=== PATIENT | male | born 1965 ===

== ENCOUNTER 2016-06-12 03:43 | Inpatient (IN) | payer OTHER ==
[2016-06-12 04:34] LABS: BASO # 0.1 K/uL (0.0-0.2); BASO % 0.5 % (0.0-2.0); EOS # 0.1 K/uL (0.0-0.7); EOS % 0.8 % (0.0-4.0); HEMATOCRIT 39.6 % (35.0-51.0); LYMPH # 1.1 K/uL (1.0-4.3); LYMPH % 8.7 % (20.0-40.0); MEAN CELL VOLUME 97.6 fL (80.0-94.0); MEAN CORPUSCULAR HEMOGLOBIN 29.9 pg (27.0-31.0); MEAN CORPUSCULAR HGB CONC 30.7 g/dL (33.0-37.0); MEAN PLATELET VOLUME 9.2 fL (7.2-11.7); MONO # 0.7 K/uL (0.0-0.8); MONO % 5.2 % (0.0-10.0); PLATELET COUNT 143 K/uL (130-400); RED CELL DISTRIBUTION WIDTH 13.4 % (11.5-14.5); WHITE BLOOD COUNT 13.1 K/uL (4.8-10.8)
[2016-06-12] MEDS ORDERED: Sodium Chloride 0.9% 1,000 ML IV STA ×3 (04:37→04:42)
[2016-06-12 04:39] LABS: VENOUS BLOOD GAS BASE EXCESS -19.4 mmol/L (0.0-2.0); VENOUS BLOOD GAS PCO2 26 mmHg (40-60); VENOUS BLOOD PH 7.12 (7.32-7.43)
[2016-06-12 04:44] LABS: ALB/GLOB RATIO 1.5 (1.0-2.1); ALKALINE PHOSPHATASE 119 U/L (38-126); ALT/SGPT 35 U/L (21-72); AST/SGOT 32 U/L (17-59); BILIRUBIN,TOTAL 0.9 mg/dL (0.2-1.3); BLOOD UREA NITROGEN 32 mg/dL (9-20); GFR AFRICAN-AMERICAN > 60; TOTAL PROTEIN 7.2 g/dL (6.3-8.3)
[2016-06-12 04:45] LABS: CALCIUM 9.2 mg/dl (8.6-10.4)
--- NOTE | 2016-06-12 04:47 | C.PDOC ---
History Of Present Illness 50 y/o M c PMHx DM on insulin pump, CVA with residual L sided weakness p/w chest pain x 1 hour. Pain is midchest associated with R arm tingling and numbness and nausea so he called 911 and arrived by EMS. He notes that he is typically on an insulin pump but his insulin went bad in the car so he has not been getting insulin and he can feel that he is hyperglycemic because "I know my body." He denies fever, chills, vomiting, diarrhea, dysuria. Time Seen by Provider: 06/12/16 04:05 Chief Complaint (Nursing): High Blood Sugar Past Medical History Vital Signs: Last Vital Signs Temp 98.2 F 06/12/16 03:56 Pulse 120 H 06/12/16 03:56 Resp 20 06/12/16 03:56 BP 125/67 06/12/16 03:56 Pulse Ox 97 06/12/16 05:06 - Medical History PMH: HTN Family History: States: No Known Family Hx - Social History Hx Alcohol Use: Yes Hx Substance Use: No - Immunization History Hx Tetanus Toxoid Vaccination: No Hx Influenza Vaccination: No Hx Pneumococcal Vaccination: No Review Of Systems Except As Marked, All Systems Reviewed And Found Negative. Constitutional: Negative for: Fever Cardiovascular: Positive for: Chest Pain Physical Exam - Physical Exam Additional Physical Exam Comments: Constitutional: Drowsy. Head: Normocephalic. Atraumatic. Eyes: PERRL. ENT: Dry mucous membranes. Neck: Supple. Cardiovascular: Tachycardic. Chest: No tenderness. Respiratory: Clear to auscultation bilaterally. GI: Soft. Nontender. Nondistended. Back: No CVA tenderness. Musculoskeletal: No tenderness or swelling of extremities. Skin: No rash. Neurologic: L sided weakness (baseline) ED Course And Treatment - Laboratory Results Result Diagrams: 06/12/16 04:25 06/12/16 04:25 O2 Sat by Pulse Oximetry: 97 Critical Care Time - Critical Care Note Total Time (in mins): 60 Comments: Required my immediate attention, frequent reassessments, ICU consult Documented critical care: time excludes all time spent performing seperately billable procedures. Medical Decision Making Medical Decision Making: EKG Sinus tachycardia 115 bpm, no ST elevations, peaked T waves. Patient with tachycardia, leukocytosis and lactate 2.8 so CODE SEPSIS activated. 30cc/kilo bolus administered. Differential includes ACS, DKA, sepsis. Patient with marked hyperglycemia, acidosis, ketones, hyperkalemia. Insulin bolus and drip, kayexelate, bicarb, calcium administered. Dr. Steiner accepts patient to ICU. Disposition Discussed With : Sasha Steiner-Fitta - Disposition Disposition: HOSPITALIZED Disposition Time: 05:23 Condition: CRITICAL - Clinical Impression Clinical Impression: Chest pain, Diabetic ketoacidosis
[2016-06-12 04:49] LABS: RBC URINE < 1 /hpf (0-3); URINE BILIRUBIN NEGATIVE (NEGATIVE); URINE BLOOD NEGATIVE (NEGATIVE); URINE COLOR Straw (YELLOW); URINE GLUCOSE (UA) 3+ mg/dL (Normal); URINE KETONE 2+ mg/dL (NEGATIVE); URINE LEUKOCYTE ESTERASE NEG Leu/uL (Negative); URINE PROTEIN NEGATIVE (NEGATIVE); URINE UROBILINOGEN NORMAL mg/dL (0.2-1.0); WBC URINE < 1 /hpf (0-5)
[2016-06-12 04:58] LABS: GLUCOSE,RANDOM 900 mg/dL (75-110)
[2016-06-12 04:59] LABS: CARBON DIOXIDE < 5 mmol/L (22-30); CHLORIDE 91 mmol/L (98-107); POTASSIUM 6.5 mmol/L (3.6-5.2); SODIUM 128 mmol/L (132-148)
[2016-06-12 04:59] LABS: ALCOHOL SERUM < 10 mg/dl (0-10)
[2016-06-12] MEDS ORDERED: Sodium Bicarbonate (8.4%) 50 Meq Syringe IVP ONE (04:59)
[2016-06-12] MEDS ORDERED: (Novolin R) Insulin Human Regular 100 units/ml vial IV STA (04:59)
[2016-06-12] MEDS ORDERED: Calcium Gluconate 4.65 mEq/10 ml Inj IVP ONE ×2 (05:00→06:35)
[2016-06-12] MEDS ORDERED: (Novolin R) Insulin Human Regular 100 units/ml vial ONE (05:04)
[2016-06-12] MEDS ORDERED: Sodium Bicarbonate (8.4%) 50 Meq Syringe ONE (05:04)
[2016-06-12] MEDS ORDERED: Sod Polystyrene Sulf 15 gm/60 ml Oral Susp PO ONE (05:14)
[2016-06-12] MEDS ORDERED: Insulin Human Regular 100 UNIT in Sodium Chloride 0.9% 99 ML IV SCH ×3 (05:15→12:21)
[2016-06-12] MEDS ORDERED: Sod Polystyrene Sulf 15 gm/60 ml Oral Susp ONE (05:23)
[2016-06-12 05:35] LABS: NEUTROPHIL 81 % (50-75); TOTAL CELLS COUNTED 100
[2016-06-12] MEDS ORDERED: Sodium Chloride 0.9% 1,000 ML IV SCH (06:45)
--- NOTE | 2016-06-12 07:37 | CP.PCM.CON ---
History of Present Illness - History of Present Illness History of Present Illness: Patient seen and examined in am on arrival to ER. History is poor since the patient is tired, but when woken up aaox3 and answers appropriately to questions. He came with complaints of sob. He states his insulin went bad and has not been using it, he was in retirement 2 days ago. Labs showed DKA 10 ros asked and negative, when I asked no mor cp NKDA social: no smoking, alcohol or drugs PMH: HTN DM CVA with left residual weakness, more arm than leg FH: Not relevant for the case pe: bp: 123/65 mmhg, hr 120 bpm, rr 22 bpm, O2 98% on RA, T 97.9 middle age male looks tired aaox3 s1, s2 sinus tachycardia, no murmurs lungs good bilateral air of entry abdomen global soft, non tender legs no edema left leg relatively weaker than the right, but pretty strong, left arm strength 1/5 a/p: DKA: insulin drip at 6, no titration, 2 L bolus given in ER, give 2 extra litters bolus, NaCl at 150, give initial dose of levemir now, than hs, poc q1h for now, adjust drips when BS reach 250 residual stroke at baseline as per pt, able to walk with no cane, slurred speech and a little hard to understand at times, but patient claims this is the way he speaks elevated wbc could be reactive, no fever tachycardia might be due to dehydration, ordered 2 L of fluid bolus, oral mucosa looks moderately dry No medications for bp for now Past Patient History - Past Social History Smoking Status: Never Smoked - CARDIAC Hx Hypertension: Yes - PSYCHIATRIC Hx Substance Use: No Meds Allergies/Adverse Reactions: Allergies Allergy/AdvReac Type Severity Reaction Status Date / Time No Known Allergies Allergy Unverified 06/12/16 04:05 - Medications Medications: Current Medications Sodium Chloride (Sodium Chloride 0.9%) 1,000 mls @ 150 mls/hr IV .[id number] [facility] Last Admin: 06/12/16 06:48 Dose: 150 mls/hr Insulin Human Regular 100 unit (/ Sodium Chloride) 100 mls @ 6 mls/hr IV .[id number] [facility] Last Admin: 06/12/16 06:44 Dose: 6 mls/hr Results - Vital Signs Recent Vital Signs: Last Vital Signs Temp 97.9 F 06/12/16 06:33 Pulse 120 H 06/12/16 06:33 Resp 22 06/12/16 06:33 BP 123/65 06/12/16 06:33 Pulse Ox 98 06/12/16 06:33 - Labs Result Diagrams: 06/12/16 04:25 06/12/16 04:25 Labs: Laboratory Results - last 24 hr 06/12/16 06:22 POC Glucose (mg/dL) > 500 H*
[2016-06-12] MEDS ORDERED: Sodium Chloride 0.9% 1,000 ML IV ONE ×2 (07:40→07:41)
[2016-06-12] MEDS ORDERED: Insulin Detemir 100 units/ml Vial (Levemir) SC ONE (07:45)
[2016-06-12 09:02] LABS: VENOUS BLOOD GAS PCO2 28 mmHg (40-60); VENOUS BLOOD PH 7.28 (7.32-7.43)
[2016-06-12 09:14] LABS: CHLORIDE 102 mmol/L (98-107); POTASSIUM 4.4 mmol/L (3.6-5.2); SODIUM 137 mmol/L (132-148)
[2016-06-12 09:17] LABS: GFR AFRICAN-AMERICAN > 60
[2016-06-12 09:18] LABS: BLOOD UREA NITROGEN 29 mg/dL (9-20); CARBON DIOXIDE 12 mmol/L (22-30); GLUCOSE,RANDOM 392 mg/dL (75-110); PHOSPHOROUS 4.4 mg/dL (2.5-4.5)
[2016-06-12 09:19] LABS: CALCIUM 8.6 mg/dl (8.6-10.4); MAGNESIUM 2.3 mg/dL (1.6-2.3)
--- NOTE | 2016-06-12 09:55 | RAD ---
HISTORY: tachycardia COMPARISON: None available. TECHNIQUE: Chest, one view. FINDINGS: LUNGS: No focal consolidation. Please note that chest x-ray has limited sensitivity for the detection of pulmonary masses. PLEURA: No significant pleural effusion identified. No definite pneumothorax . CARDIOVASCULAR: Heart size appears top normal. OSSEOUS STRUCTURES: Degenerative changes. VISUALIZED UPPER ABDOMEN: Unremarkable. OTHER FINDINGS: None. IMPRESSION: No focal consolidation, significant pleural effusion, or definite pneumothorax identified.
--- NOTE | 2016-06-12 12:28 | CP.PCM.HP ---
<Elzbieta Crowe - Last Filed: 06/12/16 13:15> History of Present Illness - History of Present Illness History of Present Illness: Internal medicine H & P for Hospitalist service- Elzbieta Crowe, PGY-1 Pt S & E at bedside. Pt prefers being called "Jimmy" 50 M w/PMH sig for CAD s/p [place] (04/2016) w/cardiac cath, type 1 DM on insulin pump , HTN, s/p hemorrhagic CVA (2013) admitted to ICU for DKA. Pt reports that he has had significant personal issues resulting in his living out of his car. Pt was storing a 3 mo supply of insulin in his car, unrefrigerated. Pt noted that insulin did not look right 3 days ago, continued to use it while trying to modify eating habits so that blood sugars would be controlled. Noted that he started to feel fatigue/lethargy, weakness, experience polyuria, myalgias, headache, blurry vision and some nausea this morning. Admits to dizziness upon standing, sore throat, occasional/intermittent/chronic cough with yellow mucus production, numbness and tingling of right hand (specifically 1st and 2nd digits ), wt loss, Denies emesis, abdominal pain, palpitations, chest tightness, constipation, diarrhea. PMH: CAD s/p [place] (04/2016) w/cardiac cath, type 1 DM on insulin pump since age 21 , HTN, s/p hemorrhagic CVA (2013), fall w/head injury while in [facility], chronic migraines/headache, Left eye vision changes PSH: Cath (04/2016 at [place]) w/1 vessel disease, Appendectomy All: NKDA SH: Social ETOH use #1-2 drinks/3 mos, denies tobacco/illicit drug use; pt recently jailed x 22 days from 04/16-05/07/2016 PMD: Chiara Marrufo Present on Admission - Present on Admission Any Indicators Present on Admission: Yes History of DVT/PE: No History of Uncontrolled Diabetes: Yes Urinary Catheter: No Decubitus Ulcer Present: No Review of Systems - Review of Systems All systems: reviewed and no additional remarkable complaints except - Constitutional Constitutional: Fatigue, Headache, Lethargy, Weight Loss, Weakness. absent: Chills, Fever - EENT Eyes: Blurred Vision, Change in Vision Nose/Mouth/Throat: Sore Throat - Cardiovascular Cardiovascular: Chest Pain. absent: Palpitations - Respiratory Respiratory: Cough (recurrent, intermittent) - Gastrointestinal Gastrointestinal: Nausea. absent: Abdominal Pain, Constipation, Diarrhea, Vomiting - Genitourinary Genitourinary: absent: Dysuria - Musculoskeletal Musculoskeletal: Myalgias - Integumentary Integumentary: absent: Rash - Neurological Neurological: Abnormal Speech (slurred since CVA), Focal Weakness (on left side) , Headaches, Tingling (right hand 1st and 2nd digit), Weakness - Endocrine Endocrine: Fatigue, Polyuria Past Patient History - Past Medical History & Family History Past Medical History?: Yes - Past Social History Smoking Status: Never Smoked - CARDIAC Hx Hypertension: Yes - NEUROLOGICAL HX Cerebrovascular Accident: Yes - ENDOCRINE/METABOLIC Hx Diabetes Mellitus Type 1: Yes - MUSCULOSKELETAL/RHEUMATOLOGICAL Hx Falls: No - PSYCHIATRIC Hx Substance Use: No - ANESTHESIA Hx Anesthesia: No Hx Anesthesia Reactions: No Hx Malignant Hyperthermia: No Has any member of the family had a problem w/ anesthesia?: No Meds Allergies/Adverse Reactions: Allergies Allergy/AdvReac Type Severity Reaction Status Date / Time No Known Allergies Allergy Unverified 06/12/16 04:05 Physical Exam - Constitutional Appears: Non-toxic, No Acute Distress - Head Exam Head Exam: ATRAUMATIC, NORMAL INSPECTION, NORMOCEPHALIC - Eye Exam Eye Exam: EOMI, Normal appearance, PERRL Pupil Exam: NORMAL ACCOMODATION, PERRL - ENT Exam ENT Exam: Mucous Membranes Dry, Normal Exam. absent: Mucous Membranes Moist - Neck Exam Neck exam: Positive for: Full Rom, Normal Inspection. Negative for: Lymphadenopathy, Tenderness - Respiratory Exam Respiratory Exam: Clear to Auscultation Bilateral, NORMAL BREATHING PATTERN. absent: Chest Wall Tenderness, Decreased Breath Sounds, Rales, Rhonchi, Wheezes , Respiratory Distress, Stridor - Cardiovascular Exam Cardiovascular Exam: Tachycardia, +S1, +S2 - GI/Abdominal Exam GI & Abdominal Exam: Normal Bowel Sounds, Soft. absent: Distended, Firm, Guarding, Hernia, Rebound, Rigid, Tenderness - Extremities Exam Extremities exam: Positive for: normal inspection. Negative for: pedal edema, tenderness - Neurological Exam Neurological exam: CN II-XII Intact, Motor Sensory Deficit (left sided upper extremity paralysis, hand contracted), Oriented x3 Additional comments: lethargic during interview, obvious left sided lip and facial droop, slurred speech - Psychiatric Exam Psychiatric exam: Normal Affect Additional comments: Emotionally labile during interview - Skin Skin Exam: Dry, Intact, Normal Color, Warm Results - Vital Signs Recent Vital Signs: Last Vital Signs Temp 97.9 F 06/12/16 06:33 Pulse 112 H 06/12/16 07:00 Resp 16 06/12/16 07:00 BP 117/64 06/12/16 07:00 Pulse Ox 97 06/12/16 07:00 - Labs Result Diagrams: 06/12/16 04:25 06/12/16 09:02 Labs: Laboratory Results - last 24 hr 06/12/16 06/12/16 06/12/16 06:22 07:03 07:53 pO2 VBG pH VBG pCO2 VBG HCO3 VBG Total CO2 VBG O2 Sat (Calc) VBG Base Excess VBG Potassium Sodium Chloride Glucose Lactate Potassium Carbon Dioxide Anion Gap BUN Creatinine Est GFR ( Amer) Est GFR (Non-Af Amer) POC Glucose (mg/dL) > 500 H* > 500 H* > 500 H* Random Glucose Calcium Phosphorus Magnesium Total Creatine Kinase CK-MB (Mass) Troponin I, Quant Venous Blood Potassium 06/12/16 06/12/16 06/12/16 08:56 09:02 09:55 pO2 53 VBG pH 7.28 L VBG pCO2 28 L VBG HCO3 15.2 VBG Total CO2 14.1 L VBG O2 Sat (Calc) 93.5 H VBG Base Excess -12.0 L VBG Potassium 4.1 Sodium 138.0 137 Chloride 108.0 H 102 Glucose 381 H Lactate 3.0 H Potassium 4.4 Carbon Dioxide 12 L Anion Gap 27 H BUN 29 H Creatinine 1.4 Est GFR ( Amer) > 60 Est GFR (Non-Af Amer) 54 POC Glucose (mg/dL) 369 H 382 H Random Glucose 392 H Calcium 8.6 Phosphorus 4.4 Magnesium 2.3 Total Creatine Kinase CK-MB (Mass) Troponin I, Quant Venous Blood Potassium 4.1 06/12/16 06/12/16 06/12/16 11:02 11:32 12:08 pO2 VBG pH VBG pCO2 VBG HCO3 VBG Total CO2 VBG O2 Sat (Calc) VBG Base Excess VBG Potassium Sodium Chloride Glucose Lactate Potassium Carbon Dioxide Anion Gap BUN Creatinine Est GFR ( Amer) Est GFR (Non-Af Amer) POC Glucose (mg/dL) 359 H 218 H Random Glucose Calcium Phosphorus Magnesium Total Creatine Kinase 218 H CK-MB (Mass) 3.46 H Troponin I, Quant 0.0380 Venous Blood Potassium Assessment & Plan - Assessment and Plan (Free Text) Assessment: Metabolic acidosis due to DKA Accuchecks Q1H while on insulin drip NS@150cc Insulin drip until gap closes Monitor AG gap, K Mgmt as per ICU DM type 1 usually uses insulin pump FU lipid panel in AM FU A1c FU Microalbumin Dehydration due to DKA IVF resuscitation HTN BP WNL Monitor & adjust PRN CAD FU Echo Crestor 5mg PO HS FU lipid panel ASA to be considered after CT brain S/p fall in FU CT brain w/o cont If CT neg for bleed, will consider starting ASA Hx hemorrhagic CVA FU CT brain ASA consideration as above Crestor 5mg PO HS Will consider JOSE/ARB pending results PT/OT eval Chest pain FU Serial ROMIs- 11am, 5pm ABDI's neg x 2 FU EKG Leukocytosis WBC 13.1 Afebrile since admission FU Blood cxr FU urine cxr CXR neg for PNA GI/DVT ppx Protonix 40mg IVP daily SCDs Contraindications to VTE ppx - recent fall with head trauma & hx hemorrhagic CVA Dispo Admit to ICU Mgmt as per ICU VS as per protocol accuchecks Q1H DW attending - Date & Time Date: 06/12/16 Time: 09:00 Decision To Admit - Pt Status Changed To: Hospital Disposition Of: Inpatient - Admit Certification Admit to Inpatient:: After my assessment, the patient will require hospitalization for at least two midnights. This is because of the severity of symptoms shown, intensity of services needed, and/or the medical risk in this patient being treated as an outpatient. - InPatient: Physician Admission Certification:: needs ICU management for diabetic ketoacidosis, medical management for diabetes - . Bed Request Type: ICU Admitting Physician: Maranda Parker <Maranda Parker V - Last Filed: 06/13/16 10:17> Results - Vital Signs Recent Vital Signs: Last Vital Signs Temp 98 F 06/13/16 02:00 Pulse 80 06/13/16 02:00 Resp 16 06/13/16 02:00 BP 121/66 06/13/16 02:00 Pulse Ox 100 06/13/16 02:00 - Labs Result Diagrams: 06/13/16 06:27 06/13/16 06:27 Labs: Laboratory Results - last 24 hr 06/12/16 06/12/16 06/12/16 11:02 11:32 12:08 WBC RBC Hgb Hct MCV MCH MCHC RDW Plt Count MPV Neut % (Auto) Lymph % (Auto) Placer % (Auto) Eos % (Auto) Baso % (Auto) Neut # Lymph # Placer # Eos # Baso # Sodium Potassium Chloride Carbon Dioxide Anion Gap BUN Creatinine Est GFR ( Amer) Est GFR (Non-Af Amer) POC Glucose (mg/dL) 359 H 218 H Random Glucose Calcium Total Creatine Kinase 218 H CK-MB (Mass) 3.46 H Troponin I, Quant 0.0380 06/12/16 06/12/16 06/12/16 13:08 14:12 14:21 WBC RBC Hgb Hct MCV MCH MCHC RDW Plt Count MPV Neut % (Auto) Lymph % (Auto) Placer % (Auto) Eos % (Auto) Baso % (Auto) Neut # Lymph # Placer # Eos # Baso # Sodium 138 Potassium 3.9 Chloride 106 Carbon Dioxide 20 L Anion Gap 16 BUN 24 H Creatinine 1.1 Est GFR ( Amer) > 60 Est GFR (Non-Af Amer) > 60 POC Glucose (mg/dL) 193 H 140 H Random Glucose 121 H Calcium 7.9 L Total Creatine Kinase CK-MB (Mass) Troponin I, Quant 06/12/16 06/12/16 06/12/16 15:07 16:03 16:57 WBC RBC Hgb Hct MCV MCH MCHC RDW Plt Count MPV Neut % (Auto) Lymph % (Auto) Placer % (Auto) Eos % (Auto) Baso % (Auto) Neut # Lymph # Placer # Eos # Baso # Sodium Potassium Chloride Carbon Dioxide Anion Gap BUN Creatinine Est GFR ( Amer) Est GFR (Non-Af Amer) POC Glucose (mg/dL) 99 107 101 Random Glucose Calcium Total Creatine Kinase CK-MB (Mass) Troponin I, Quant 06/12/16 06/12/16 06/12/16 17:16 17:52 21:46 WBC RBC Hgb Hct MCV MCH MCHC RDW Plt Count MPV Neut % (Auto) Lymph % (Auto) Placer % (Auto) Eos % (Auto) Baso % (Auto) Neut # Lymph # Placer # Eos # Baso # Sodium 140 Potassium 3.8 Chloride 108 H Carbon Dioxide 21 L Anion Gap 15 BUN 23 H Creatinine 1.0 Est GFR ( Amer) > 60 Est GFR (Non-Af Amer) > 60 POC Glucose (mg/dL) 117 H 403 H* Random Glucose 92 Calcium 8.1 L Total Creatine Kinase 190 H CK-MB (Mass) 3.51 H Troponin I, Quant 0.1020 06/13/16 06/13/16 06/13/16 02:01 06:27 08:08 WBC 7.0 RBC 3.34 L Hgb 10.1 L D Hct 30.0 L MCV 89.8 D MCH 30.3 MCHC 33.8 RDW 13.1 Plt Count 214 MPV 7.8 Neut % (Auto) 65.6 Lymph % (Auto) 21.4 Placer % (Auto) 7.7 Eos % (Auto) 4.7 H Baso % (Auto) 0.6 Neut # 4.6 Lymph # 1.5 Placer # 0.5 Eos # 0.3 Baso # 0.0 Sodium 136 Potassium 3.6 Chloride 104 Carbon Dioxide 21 L Anion Gap 15 BUN 23 H Creatinine 1.0 Est GFR ( Amer) > 60 Est GFR (Non-Af Amer) > 60 POC Glucose (mg/dL) 449 H* 118 H Random Glucose 141 H Calcium 7.9 L Total Creatine Kinase CK-MB (Mass) Troponin I, Quant Attending/Attestation - Attestation I have personally seen and examined this patient.: Yes I have fully participated in the care of the patient.: Yes I have reviewed all pertinent clinical information: Yes Notes (Text): This is late computer entry for 06/12/16. Patient seen, examined, and case discussed with day-time resident. Patient is type 1 diabetic, since the age of 21, patient has been using insulin because he is unable to afford insulin. patient is homeless. Patient reports he uses an insulin pump at home. Patient reports day of admission prominent polyuria and associated body aches and pains, and very dehydrated. Patient has a number of co-morbidites: * Diabetes type 1, since age 21, uses insulin pump, has been using insulin * Hypertension * CAD, single vessel disease, non-critical vessel disease, no stent required patient, April 2016 [facility] * Hemorrhagic CVA in 2013 with left side residual weakness * Nursing Home from 04/06/16-05/07/16 where he reports he fell but reports he was not hospitalized/evaluated * Homeless Discussed admitting orders with the day-time resident. Management of DKA per ICU. Assessment/Plan 1) Metabolic acidosis due to DKA * Accuchecks Q1H while on insulin drip * NS@150cc/hr * Insulin drip * Monitor AG gap, K * Mgmt as per ICU 2) DM type 1 * F/U lipid panel in AM * F/U A1c * F/U urine Microalbumin 3) Dehydration * secondary to DKA 4) Hypertension * monitor vital signs 5) CAD * F/U Echo * Crestor 5mg PO HS * F/U lipid panel * ASA to be considered after CT Head given recent fall and left side weakness, in light of CVA hx 6) S/p fall in Mar/April * FU CT head w/o cont * If CT neg for bleed, will consider starting ASA 7) Hx hemorrhagic CVA * F/U CT Head * ASA consideration as above * Crestor 5mg PO HS * Will consider JOSE/ARB pending results * PT/OT eval 8) Chest pain * FU Serial ROMIs- 11am and 5pm * ABDI's neg x 2 * FU EKG 9)Leukocytosis * inflammatory response secondary to DKA * WBC 13.1 * Afebrile since admission * F/U Blood cxr * F/U urine cxr * CXR neg for PNA GI/DVT ppx * Protonix 40mg IVP daily * SCDs * Pending VTE PPx based on CT head r/o current intracranial bleed in light of prior hemorrhagic CVA
[2016-06-12] MEDS ORDERED: Dextrose 5%/0.9% NS 1,000 ML IV SCH (12:30)
[2016-06-12] MEDS: Enoxaparin 40 mg Syringe SC SCH (13:07)
[2016-06-12 14:31] LABS: CHLORIDE 106 mmol/L (98-107)
[2016-06-12 14:32] LABS: POTASSIUM 3.9 mmol/L (3.6-5.2); SODIUM 138 mmol/L (132-148)
[2016-06-12 14:34] LABS: GFR AFRICAN-AMERICAN > 60
[2016-06-12 14:35] LABS: BLOOD UREA NITROGEN 24 mg/dL (9-20); CALCIUM 7.9 mg/dl (8.6-10.4); CARBON DIOXIDE 20 mmol/L (22-30); GLUCOSE,RANDOM 121 mg/dL (75-110)
--- NOTE | 2016-06-12 16:59 | CT ---
PROCEDURE: CT HEAD WITHOUT CONTRAST. HISTORY: s/p fall, hx of hemorrhagic CVA COMPARISON: None available. TECHNIQUE: Axial computed tomography images were obtained through the head/brain without intravenous contrast. Radiation dose: Total exam DLP = 992.12 mGy-cm. This CT exam was performed using one or more of the following dose reduction techniques: Automated exposure control, adjustment of the mA and/or kV according to patient size, and/or use of iterative reconstruction technique. FINDINGS: HEMORRHAGE: No intracranial hemorrhage. BRAIN: No mass effect or edema. Intracranial atherosclerotic calcifications. Left parietal encephalomalacia compatible with prior infarction. Scattered periventricular and subcortical white matter hypodensities, which are nonspecific, but often seen with chronic microvascular ischemic disease. Please note that MRI with diffusion imaging is more sensitive in the detection of acute ischemic event. VENTRICLES: No hydrocephalus. CALVARIUM: Unremarkable. PARANASAL SINUSES: Mucosal thickening of the ethmoid air cells. Partially imaged mucosal polyp persist within the left maxillary sinus. MASTOID AIR CELLS: Unremarkable as visualized. No inflammatory changes. OTHER FINDINGS: None. IMPRESSION: Left parietal encephalomalacia consistent with prior infarction. Scattered nonspecific white matter changes. Please note that MRI with diffusion imaging is more sensitive in the detection of acute ischemic event.
[2016-06-12 17:29] LABS: CHLORIDE 108 mmol/L (98-107); POTASSIUM 3.8 mmol/L (3.6-5.2); SODIUM 140 mmol/L (132-148)
[2016-06-12 17:31] LABS: GFR AFRICAN-AMERICAN > 60
[2016-06-12 17:32] LABS: BLOOD UREA NITROGEN 23 mg/dL (9-20); CALCIUM 8.1 mg/dl (8.6-10.4); CARBON DIOXIDE 21 mmol/L (22-30); GLUCOSE,RANDOM 92 mg/dL (75-110)
[2016-06-12] MEDS ORDERED: Insulin Detemir 100 units/ml Vial (Levemir) SC SCH (22:00)
[2016-06-12] MEDS: (Novolog) Insulin Aspart, Recombinant 100 u/ml 10 ml vial SC SCH (22:02)
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
[2016-06-13] MEDS ORDERED: (Novolog) Insulin Aspart, Recombinant 100 u/ml 10 ml vial SC STA (02:20)
[2016-06-13 06:34] LABS: BASO % 0.6 % (0.0-2.0); EOS # 0.3 K/uL (0.0-0.7); EOS % 4.7 % (0.0-4.0); LYMPH # 1.5 K/uL (1.0-4.3); LYMPH % 21.4 % (20.0-40.0); MEAN CELL VOLUME 89.8 fL (80.0-94.0); MEAN CORPUSCULAR HEMOGLOBIN 30.3 pg (27.0-31.0); MEAN CORPUSCULAR HGB CONC 33.8 g/dL (33.0-37.0); MEAN PLATELET VOLUME 7.8 fL (7.2-11.7); MONO # 0.5 K/uL (0.0-0.8); MONO % 7.7 % (0.0-10.0); NRBC % 0.1 % (0.0-2.0); RED CELL DISTRIBUTION WIDTH 13.1 % (11.5-14.5)
[2016-06-13 06:50] LABS: CHLORIDE 104 mmol/L (98-107); POTASSIUM 3.6 mmol/L (3.6-5.2); SODIUM 136 mmol/L (132-148)
[2016-06-13 06:52] LABS: GFR AFRICAN-AMERICAN > 60
[2016-06-13 06:53] LABS: BLOOD UREA NITROGEN 23 mg/dL (9-20); CALCIUM 7.9 mg/dl (8.6-10.4); CARBON DIOXIDE 21 mmol/L (22-30); GLUCOSE,RANDOM 141 mg/dL (75-110)
[2016-06-13] MEDS: (Novolog) Insulin Aspart, Recombinant 100 u/ml 10 ml vial SC SCH ×6 (08:14→22:06)
[2016-06-13] MEDS: Enoxaparin 40 mg Syringe SC SCH (09:26)
--- NOTE | 2016-06-13 10:20 | CP.PCM.PN ---
Subjective - Date & Time of Evaluation Date of Evaluation: 06/13/16 Time of Evaluation: 10:15 - Subjective Subjective: Medical Attending Note: Follow-up: DKA, dehydration, leukocytosis and multiple co-morbidities Patient seen, examined. Patient reports he is feeling better. Patient reports following conversation with the psychiatrist he is feeling better. Patient reports he is quite anxious regarding affording his insulin, reports about 230 dollars only supplies one vial of insulin. Patient denies headache, denies chest pain, denies nausea, denies dizziness, denies nausea, denies shortness of breathe, denies abdominal pain, denies constipation, denies dysuria. Patient reports dry cough and sore throat. Objective - Vital Signs/Intake and Output Vital Signs (last 24 hours): Temp Pulse Resp BP Pulse Ox 98 F 80 16 121/66 100 06/13/16 02:00 06/13/16 02:00 06/13/16 02:00 06/13/16 02:00 06/13/16 02:00 Intake and Output: 06/13/16 06/13/16 06:59 18:59 Intake Total 850 Output Total 1500 Balance -650 - Medications Medications: Current Medications Aspirin (Aspirin Chewable) 81 mg PO DAILY [facility] Last Admin: 06/13/16 09:26 Dose: 81 mg Enoxaparin Sodium (Lovenox) 40 mg SC DAILY [facility] Last Admin: 06/13/16 09:26 Dose: 40 mg Famotidine (Pepcid) 20 mg PO DAILY [facility] Last Admin: 06/13/16 09:26 Dose: 20 mg Insulin Aspart (Novolog) 0 unit SC [facility] PRN Reason: Protocol Last Admin: 06/13/16 08:14 Dose: 2 unit Insulin Detemir (Levemir) 10 unit SC [facility] Last Admin: 06/12/16 22:03 Dose: 10 unit Lorazepam (Ativan) 0.5 mg PO Q8H PRN PRN Reason: Anxiety Ondansetron HCl (Zofran Inj) 4 mg IVP Q6H PRN PRN Reason: Nausea/Vomiting Rosuvastatin Calcium (Crestor) 5 mg PO [facility] Last Admin: 06/12/16 22:00 Dose: 5 mg - Labs Labs: 06/13/16 06:27 06/13/16 06:27 - Constitutional Appears: Non-toxic, No Acute Distress, Agitated - Head Exam Head Exam: NORMAL INSPECTION - Eye Exam Eye Exam: EOMI Pupil Exam: PERRL - ENT Exam ENT Exam: Mucous Membranes Dry - Respiratory Exam Respiratory Exam: NORMAL BREATHING PATTERN. absent: Rales, Rhonchi, Respiratory Distress - Cardiovascular Exam Cardiovascular Exam: REGULAR RHYTHM, +S1, +S2 - GI/Abdominal Exam GI & Abdominal Exam: Soft, Normal Bowel Sounds. absent: Distended, Firm, Guarding, Rigid, Tenderness, Rebound - Extremities Exam Extremities Exam: absent: Pedal Edema, Tenderness - Back Exam Back Exam: absent: CVA tenderness (L), CVA tenderness (R), rash noted - Neurological Exam Neurological Exam: Alert, Awake, CN II-XII Intact, Oriented x3 Neuro motor strength exam: Left Upper Extremity: 4, Right Upper Extremity: 5, Left Lower Extremity: 4, Right Lower Extremity: 5 - Psychiatric Exam Psychiatric exam: Anxious, Normal Affect, Normal Mood - Skin Skin Exam: Dry, Normal Color, Warm Assessment and Plan (1) Diabetic ketoacidosis Status: Acute (2) Chest pain Status: Acute (3) Leukocytosis Status: Acute (4) History of CVA with residual deficit Status: Chronic (5) Coronary artery disease Status: Chronic (6) Diabetes type 1, uncontrolled Status: Chronic (7) Anxiety Status: Acute (8) Prophylactic measure Status: Acute - Assessment and Plan (Free Text) Assessment: 1) Metabolic acidosis due to DKA * Patient stabilized from ICU; stable for transfer 2) DM type 1 * F/U lipid panel in AM * F/U A1c * F/U urine Microalbumin * Endocrinology consult: patient uses an insulin pump, he is homeless, and type one diabetes 3) Dehydration * secondary to DKA * improved 4) Hypertension * monitor vital signs 5) CAD * F/U Echo-->pending * Crestor 5mg PO HS * F/U lipid panel-->in AM * ASA 81mg PO daily 6) S/p fall in Mar/April * CT head (06/12/16): 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, scattered nonspecific white matter changes * ASA 81mg PO daily 7) Hx hemorrhagic CVA * CT head (06/12/16): 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, scattered nonspecific white matter changes * ASA 81mg PO daily * Crestor 5mg PO HS * PT/OT eval 8) Chest pain * resolved * indeterminate troponin; has been cath this year 9) Leukocytosis * resolved * F/U Blood cxr * F/U urine cxr * CXR neg for PNA 10) Anxiety * Psych on board (Dr. Woods) * Ativan 0.5mg PO Q 8hour PRN 11) GI/DVT ppx * Protonix 40mg IVP daily * SCDs * Lovenox 40mg subqdaily * PT/OT * Homeless
[2016-06-13] MEDS ORDERED: Promethazine/Cod 6.25mg-10mg/5ml Syr UD PO PRN (10:30)
[2016-06-13] MEDS ORDERED: Benzocaine/Menthol (Cepacol) Lozenge MT PRN (10:30)
--- NOTE | 2016-06-13 18:35 | PCM.PYCHPN ---
Psychiatric Progress Note - Psychiatric Progress Note Patient seen today, length of contact: 15 min Patient Chief Complaint: "I'm anxious but OK" Problems Identified/Issues Discussed: Pt is seen, case discussed with Dr. Parker. He is again inappropriately too talkative, slightly euphoric and anxious. No SI, HI or del/halluc. prn Ativan was ordered. Seroquel is added now at bedtime and dose will be increased Support given Medication Change: Yes (add seroquel) Medical Record Reviewed: Yes Mental Status Examination - Cognitive Function Orientation: Person, Place, Situation, Time Memory: Impaired Attention: Poor Concentration: Poor Association: Loose Fund of Knowledge: WNL - Mood Mood: Anxious - Affect Affect: Other (labile) - Speech Speech: Pressured (somewhat) - Formal Thought Process Formal Thought Process: Loosening of associations - Suicidal Ideation Suicidal Ideation: No - Homicidal Ideation Homicidal Ideation: No Goal/Treatment Plan - Goal/Treatment Plan Need for Continued Stay: Other (medically not stabilized) Progress Toward Problem(s) and Goals/Treatment Plan: Pt denies need for psych meds or psych referral He is Ok with prn low dose ativan for anxiety Seroquel 50 mg tonight, 100 mg tomorrow night Support and psychoed given
--- NOTE | 2016-06-13 19:23 | CON ---
DATE: 06/13/2016 ROOM: ICU room 17. HISTORY OF PRESENT ILLNESS: This is a 50-year-old male with known history of type 1 insulin-dependen t diabetes on insulin pump, but apparently has been homeless and has been unable to use his pump supp lies and now presented here with marked hyperglycemic accelerations and supervening diabetic ketoacid osis and is being referred now for diabetic evaluation and management. PAST MEDICAL HISTORY: As mentioned above, history of type 1 insulin-dependent diabetes and has been on and off his insulin pump because of homelessness situation and problems with storage of his insuli n supplies, history of hypertension and dyslipidemia, history of diabetic retinopathy and polyneuropa thy, history of coronary artery disease with previous myocardial infarction in April of this year. H istory of a previous hemorrhagic cerebrovascular accident in 2013. SOCIAL HISTORY: The patient admits to chronic alcoholism, but denies any nicotine use. He had previ ous mcc time in 03/2016, staying close to a month in the correctional facility. He has since then b een homeless and living in a nearby alf with problems with his insulin supplies as mentioned. REVIEW OF SYSTEMS: As mentioned above, admits to generalized body weakness with easy fatigability an d tiredness and suboptimal energy level. Also admits to episodic bouts of dizziness and lightheadedn ess, worse on the day of admission. No chest pains or palpitations, but admits to precordial tightne ss with progressive shortness of breath, especially on exertion. His oral intake has been variable w ith nausea, dyspepsia, and vague upper abdominal pain with supervening marked polyuria, nocturia, jessie ydipsia as noted. PHYSICAL EXAMINATION: GENERAL: This is an average built male in no apparent distress. VITAL SIGNS: Blood pressure of 140/70, pulse of 70 beats per minute and regular, temperature 99, res pirations 20. Height is 5 feet 11 inches and weight is 182 pounds. HEENT: Head normocephalic. Eyes anicteric with pink conjunctivae. Fundoscopy not possible at this time. Ears, nose and throat otherwise normal. NECK: Supple. Thyroid gland is normal size. No carotid bruits. No cervical adenopathy. CARDIOPULMONARY: Some adynamic precordium. S1, S2 is rapid and regular. LUNGS: Clear to auscultation. ABDOMEN: Flat, soft with positive bowel sounds. EXTREMITIES: No peripheral edema. Pulses are +2 bilaterally. LABORATORY DATA: His chemistries showed a BUN of 32, sodium 128, potassium 6.5, chloride 91, CO2 les s than 5, glucose 900, and creatinine 1.5. ASSESSMENT: This is a 50-year-old male with uncontrolled and decompensated type 1 insulin-dependent diabetes, presenting here with diabetic ketoacidosis and dehydration with spurious hyponatremia and h yperkalemia related to drug omission of his insulin because of homelessness condition and has now bee n living temporarily in his car with no the refrigeration of his insulin supplies thereof. Moreover, his access to meals are very variable at this time as noted. He also has significant history of dayna betic microvascular complications of retinopathy and polyneuropathy with diabetic macrovascular compl ications of coronary artery disease and peripheral arterial disease and vasculopathy. He also has si gnificant history of cerebrovascular disease with previous cerebral hemorrhage in 2013 as noted. PLAN OF MANAGEMENT: As discussed with the patient and the staff, the imperative need for tighter met abolic control cannot but be over emphasized. We will discuss with social studies department chair regarding his homel essness condition and the imperative need for a placement in a housing facility where he can have acc ess to a refrigerator and keeping his insulin vials under proper temperatures and also the need for f requent glucose monitoring, which is not possible in the homeless alf at this time. We will swit ch him over now to a basal and bolus insulin regimen as he is being transferred to the regular floor and start him on Levemir given as basal insulin as 20 units subQ at bedtime daily to start tonight. We will also start him on NovoLog given as 12 units subQ t.i.d. before meals to start at lunchtime to day as ordered and we will modify and titrate his dose regimen to optimize metabolic control. We valorie l modify the coverage scale to obviate hypoglycemia and detailed orders have been given. We will con tinue the IV hydration to optimize his lost fluids and electrolytes accordingly. We will obtain seri al chemistries and supplement accordingly as needed. We will also reinforce diabetic education and d ietary instructions at the time of this admission. We will follow and advise accordingly. Velia Tabor MD cc: [id number] TT: 06/13/2016 19:22:08 Confirmation # [id number] Dictation # [id number] mn
[2016-06-13] MEDS ORDERED: Insulin Detemir 100 units/ml Vial (Levemir) SC SCH ×2 (22:00)
[2016-06-14 06:49] LABS: BASO % 0.6 % (0.0-2.0); EOS # 0.2 K/uL (0.0-0.7); EOS % 4.6 % (0.0-4.0); HEMATOCRIT 32.6 % (35.0-51.0); LYMPH # 1.2 K/uL (1.0-4.3); MEAN CELL VOLUME 89.9 fL (80.0-94.0); MEAN CORPUSCULAR HEMOGLOBIN 30.2 pg (27.0-31.0); MEAN CORPUSCULAR HGB CONC 33.6 g/dL (33.0-37.0); MEAN PLATELET VOLUME 7.8 fL (7.2-11.7); MONO # 0.4 K/uL (0.0-0.8); MONO % 8.5 % (0.0-10.0); RED CELL DISTRIBUTION WIDTH 12.9 % (11.5-14.5); WHITE BLOOD COUNT 4.7 K/uL (4.8-10.8)
[2016-06-14 06:53] LABS: CHLORIDE 108 mmol/L (98-107); POTASSIUM 3.3 mmol/L (3.6-5.2); SODIUM 142 mmol/L (132-148)
[2016-06-14 06:55] LABS: ALB/GLOB RATIO 1.3 (1.0-2.1); ALKALINE PHOSPHATASE 106 U/L (38-126); ALT/SGPT 300 U/L (21-72); AST/SGOT 614 U/L (17-59); BILIRUBIN,TOTAL 0.3 mg/dL (0.2-1.3); BLOOD UREA NITROGEN 17 mg/dL (9-20); CARBON DIOXIDE 25 mmol/L (22-30); CHOLESTEROL 220 mg/dL (0-199); GFR AFRICAN-AMERICAN > 60; TOTAL PROTEIN 6.1 g/dL (6.3-8.3)
[2016-06-14 06:56] LABS: CALCIUM 8.6 mg/dl (8.6-10.4); MAGNESIUM 1.8 mg/dL (1.6-2.3)
[2016-06-14 07:20] LABS: GLUCOSE,RANDOM 40 mg/dL (75-110)
[2016-06-14 07:25] LABS: THYROID STIMULATING HORMONE 0.86 mIU/L (0.46-4.68)
[2016-06-14] MEDS: (Novolog) Insulin Aspart, Recombinant 100 u/ml 10 ml vial SC SCH ×6 (08:12→21:50)
[2016-06-14] MEDS: Enoxaparin 40 mg Syringe SC SCH (09:47)
[2016-06-14] MEDS ORDERED: Potassium Chloride 20 mEq ER Tab PO ONE (10:00)
--- NOTE | 2016-06-14 12:44 | CARD ---
APPROVED REPORT EKG Measurement Heart [id number] <Conclusion> Sinus tachycardia Otherwise normal ECG
--- NOTE | 2016-06-14 13:45 | CP.PCM.PN ---
<Elzbieta Crowe - Last Filed: 06/14/16 13:52> Subjective - Date & Time of Evaluation Date of Evaluation: 06/14/16 Time of Evaluation: 07:30 - Subjective Subjective: Internal medicine progress note for Dr. Way-Elzbieta Crowe, PGY-1 Pt S & E at bedside. Pt reports that he's "feeling like a 27 year old", still has some polyuria, dry mouth is improved. Did have some nausea earlier, but resolved. Denies current N /V/F/C, SOB, CP, abdominal pain, lethargy. Objective - Vital Signs/Intake and Output Vital Signs (last 24 hours): Temp Pulse Resp BP Pulse Ox 97.9 F 82 18 151/86 H 100 06/14/16 08:00 06/14/16 08:00 06/14/16 08:00 06/14/16 12:04 06/13/16 08:00 Intake and Output: 06/14/16 06/14/16 06:59 18:59 Intake Total 450 Output Total 400 Balance 50 - Medications Medications: Current Medications Acetaminophen (Tylenol 325mg Tab) 650 mg PO Q6 PRN PRN Reason: Headache Last Admin: 06/13/16 10:46 Dose: 650 mg Aspirin (Aspirin Chewable) 81 mg PO DAILY [facility] Last Admin: 06/14/16 09:47 Dose: 81 mg Benzocaine/Menthol (Cepacol Sore Throat) 1 zion MT Q6 PRN PRN Reason: Sore Throat Last Admin: 06/13/16 10:47 Dose: 1 zion Clopidogrel Bisulfate (Plavix) 75 mg PO DAILY [facility] Last Admin: 06/14/16 12:03 Dose: 75 mg Duloxetine HCl (Cymbalta) 20 mg PO DAILY [facility] Enoxaparin Sodium (Lovenox) 40 mg SC DAILY [facility] Last Admin: 06/14/16 09:47 Dose: 40 mg Famotidine (Pepcid) 20 mg PO DAILY [facility] Last Admin: 06/14/16 09:47 Dose: 20 mg Folic Acid (Folic Acid) 1 mg PO DAILY [facility] Last Admin: 06/14/16 12:03 Dose: 1 mg Insulin Aspart (Novolog) 20 unit SC AC [facility] Last Admin: 06/14/16 12:40 Dose: 20 unit Insulin Aspart (Novolog) 0 unit SC ACHS [facility] PRN Reason: Protocol Last Admin: 06/14/16 13:00 Dose: Not Given Insulin Detemir (Levemir) 34 unit SC HS [facility] Last Admin: 06/13/16 21:44 Dose: 34 unit Lisinopril (Zestril) 10 mg PO DAILY [facility] Last Admin: 06/14/16 12:04 Dose: 10 mg Lorazepam (Ativan) 0.5 mg PO Q8H PRN PRN Reason: Anxiety Metoprolol Tartrate (Lopressor) 25 mg PO DAILY [facility] Last Admin: 06/14/16 12:04 Dose: 25 mg Ondansetron HCl (Zofran Inj) 4 mg IVP Q6H PRN PRN Reason: Nausea/Vomiting Promethazine HCl/Codeine (Phenergan/Codeine Oral Syrup) 5 ml PO Q4 PRN PRN Reason: Cough Quetiapine Fumarate (Seroquel) 100 mg PO [facility] Rosuvastatin Calcium (Crestor) 5 mg PO [facility] Last Admin: 06/13/16 21:43 Dose: 5 mg - Labs Labs: 06/14/16 06:41 06/14/16 06:36 - Constitutional Appears: Non-toxic, No Acute Distress - Head Exam Head Exam: ATRAUMATIC, NORMAL INSPECTION, NORMOCEPHALIC - Eye Exam Eye Exam: EOMI, Normal appearance, PERRL Pupil Exam: NORMAL ACCOMODATION, PERRL - ENT Exam ENT Exam: Mucous Membranes Moist, Normal Exam - Neck Exam Neck Exam: Full ROM, Normal Inspection. absent: Lymphadenopathy - Respiratory Exam Respiratory Exam: Clear to Ausculation Bilateral, NORMAL BREATHING PATTERN - Cardiovascular Exam Cardiovascular Exam: REGULAR RHYTHM, +S1, +S2. absent: Murmur - GI/Abdominal Exam GI & Abdominal Exam: Soft, Normal Bowel Sounds. absent: Tenderness - Extremities Exam Extremities Exam: Normal Capillary Refill. absent: Full ROM (LUE with decreased ROM), Joint Swelling, Normal Inspection (Left upper extremity hand contracted), Pedal Edema, Tenderness - Back Exam Back Exam: NORMAL INSPECTION - Neurological Exam Neurological Exam: Alert, Awake, Oriented x3 Additional comments: left sided facial droop and lip droop, slurred speech - Psychiatric Exam Psychiatric exam: Normal Affect, Normal Mood Additional comments: sp - Skin Skin Exam: Dry, Intact, Normal Color, Warm Assessment and Plan - Assessment and Plan (Free Text) Assessment: DM type 1 Lipid panel: TG 307, Chol 220, LDL 126, HDL 39 F/U A1c Urine Microalbumin high at 38.1 Consistent carb diet Endo following- Cam Metabolic acidosis due to DKA- resolving Anion gap closed, now 9 insulin drip discontinued Monitor sugars Endo consulted- Pt stated on Levemir, ISS, and meal time insulin Dehydration- improved secondary to DKA Cepacol for dry mouth Hypokalemia K 3.3 Replaced 40mEq KCl Monitor Transaminitis AST 614 ALT 300 Hold statin Monitor CAD F/U Echo-->pending Crestor 5mg PO HS Lipid panel: TG 307, Chol 220, LDL 126, HDL 39 ASA 81mg PO daily Restarted home meds: Lopressor, Plavix S/p fall in CT head (06/12/16): 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, scattered nonspecific white matter changes ASA 81mg PO daily Hx hemorrhagic CVA CT head (06/12/16): 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, scattered nonspecific white matter changes ASA 81mg PO daily Crestor 5mg PO HS - holding 2/2 transaminitis PT/OT eval Persistent cough Promethazine w/codeine PRN Monitor Hypertension BP 137/85- WNL monitor vital signs Anxiety Ativan 0.5mg PO Q 8hour PRN Psych following- Seroquel 50mg HS started Chest pain- resolved indeterminate troponin Cathed in 04/2016 Leukocytosis- resolved Blood cxr neg x 24H Urine cxr neg CXR neg for PNA GI/DVT ppx Protonix 40mg IVP daily SCDs Lovenox 40mg subqdaily Dispo Transferred to floor from ICU Restarted home meds: Cymbalta changed to Gabapentin as per psych, Plavix, Folic acid, Lopressor, Lisinopril PT/OT Homeless SW consult DW attending <Den Way - Last Filed: 06/14/16 15:21> Objective - Vital Signs/Intake and Output Vital Signs (last 24 hours): Temp Pulse Resp BP Pulse Ox 97.9 F 82 18 151/86 H 100 06/14/16 08:00 06/14/16 08:00 06/14/16 08:00 06/14/16 12:04 06/13/16 08:00 Intake and Output: 06/14/16 06/14/16 06:59 18:59 Intake Total 450 Output Total 400 Balance 50 - Medications Medications: Current Medications Acetaminophen (Tylenol 325mg Tab) 650 mg PO Q6 PRN PRN Reason: Headache Last Admin: 06/13/16 10:46 Dose: 650 mg Aspirin (Aspirin Chewable) 81 mg PO DAILY [facility] Last Admin: 06/14/16 09:47 Dose: 81 mg Benzocaine/Menthol (Cepacol Sore Throat) 1 zion MT Q6 PRN PRN Reason: Sore Throat Last Admin: 06/13/16 10:47 Dose: 1 zion Clopidogrel Bisulfate (Plavix) 75 mg PO DAILY [facility] Last Admin: 06/14/16 12:03 Dose: 75 mg Enoxaparin Sodium (Lovenox) 40 mg SC DAILY [facility] Last Admin: 06/14/16 09:47 Dose: 40 mg Famotidine (Pepcid) 20 mg PO DAILY [facility] Last Admin: 06/14/16 09:47 Dose: 20 mg Folic Acid (Folic Acid) 1 mg PO DAILY [facility] Last Admin: 06/14/16 12:03 Dose: 1 mg Gabapentin (Neurontin) 100 mg PO TID [facility] Last Admin: 06/14/16 14:49 Dose: 100 mg Insulin Aspart (Novolog) 20 unit SC AC [facility] Last Admin: 06/14/16 12:40 Dose: 20 unit Insulin Aspart (Novolog) 0 unit SC ACHS [facility] PRN Reason: Protocol Last Admin: 06/14/16 13:00 Dose: Not Given Insulin Detemir (Levemir) 34 unit SC HS [facility] Last Admin: 06/13/16 21:44 Dose: 34 unit Lisinopril (Zestril) 10 mg PO DAILY [facility] Last Admin: 06/14/16 12:04 Dose: 10 mg Lorazepam (Ativan) 0.5 mg PO Q8H PRN PRN Reason: Anxiety Metoprolol Tartrate (Lopressor) 25 mg PO DAILY [facility] Last Admin: 06/14/16 12:04 Dose: 25 mg Ondansetron HCl (Zofran Inj) 4 mg IVP Q6H PRN PRN Reason: Nausea/Vomiting Promethazine HCl/Codeine (Phenergan/Codeine Oral Syrup) 5 ml PO Q4 PRN PRN Reason: Cough Quetiapine Fumarate (Seroquel) 100 mg PO HS JERROD - Labs Labs: 06/14/16 06:41 06/14/16 06:36 Attending/Attestation - Attestation I have personally seen and examined this patient.: Yes I have fully participated in the care of the patient.: Yes I have reviewed all pertinent clinical information, including history, physical exam and plan: Yes Notes (Text): 06/14/16 15:19 Medical attending: Patient was seen and examined by me, agrees the above note by certified medical coder. The patient is being moved to the fifth floor from the ICU. His anion gap is much improved. He reports that he is not as thirsty years tired as before. He thinks he still has some polyuria at this time. Per my discussion with the medical staff the patient has a lot of social issues that he is trying to sort out at this time. From what I understand he previously had an insulin pump however this is stopped functioning. He currently is using subcutaneous insulin at this time. We will restart the patient on oral lisinopril and low-dose beta rodriguez. Also aspirin and statin Thank you very much, Den Way
--- NOTE | 2016-06-14 13:48 | PCM.PYCHPN ---
Psychiatric Progress Note - Psychiatric Progress Note Patient seen today, length of contact: 16 min Patient Chief Complaint: "I'm good. I have lots of plans." Problems Identified/Issues Discussed: Pt is seen, case discussed, chart reviewed. He is somewhat hypomanic and labile. He has grandiosity, pressured speech at times and is circumstantial. He keeps blaming "the system" i.e. [facility] or the health system overall, with not helping him. Pt is on disability and gets $2300 and he says that's not enough b/c he doesn't want to live a "poor life" and that he has "needs." Meanwhile, he says he can't afford his insulin. Not delusional or hallucinating, no SI or HI. Slept Ok with seroquel but has migraines for some time. No SEs reported. Medication Change: Yes (increase seroquel) Medical Record Reviewed: Yes Mental Status Examination - Cognitive Function Orientation: Person, Place, Situation, Time Memory: Impaired Attention: Poor Concentration: Poor Association: Loose Fund of Knowledge: WNL - Mood Mood: Anxious, Other (labile) - Affect Affect: Other (labile) - Speech Speech: Pressured (somewhat) - Formal Thought Process Formal Thought Process: Loosening of associations, Perservation - Suicidal Ideation Suicidal Ideation: No - Homicidal Ideation Homicidal Ideation: No Goal/Treatment Plan - Goal/Treatment Plan Need for Continued Stay: Other (medically not stabilized) Progress Toward Problem(s) and Goals/Treatment Plan: Support and psychoed given Increase seroquel to 100 mg HS DC cymbalta if possible, as he can get more manicky. Cleared for d/c He wants to go to [facility] for outpt treatment (psych) as his works there he also plans to move to [place] when he retires in 2-3 months.
[2016-06-14] MEDS: (Novolin 70/30) NPH/Regular 70/30 Units/ml 10 ml vial SC SCH (17:30)
[2016-06-14 17:31] VITALS: RESP 20
[2016-06-14] MEDS: (Novolin N) Insulin Human Isophane (NPH) 100 u/ml 10 ml vial SC SCH (21:24)
[2016-06-15] MEDS: (Novolog) Insulin Aspart, Recombinant 100 u/ml 10 ml vial SC SCH ×4 (08:21→21:27)
[2016-06-15] MEDS: (Novolin 70/30) NPH/Regular 70/30 Units/ml 10 ml vial SC SCH ×2 (08:22→17:15)
--- NOTE | 2016-06-15 08:22 | PN ---
DATE: 06/14/2016 ROOM: 553 This is a 50-year-old male with recent uncontrolled type 1 insulin-dependent diabetes, presenting her e with diabetic ketoacidosis from ____ drug omission and is now ____ financial constraints because of the expensive insulin analogue and his apparent ____ metabolic management. His glycemic levels are fluctuating also because of the variability of his oral intake and the latest ____ financial limitati ons ____ insulin regimen as ordered ____. We will start him on premixed Novolin 70/30 given as 24 un its before breakfast and ____ units before dinner to start today. We will also add basal insulin ove rnight with Novolin NPH given as 10 units at bedtime daily as ordered. We will continue the low-dose correction scale using NovoLog insulin as ordered. We will obtain serial chemistries and supplement as needed. We are awaiting the intervention of director social service regarding his homelessness ____ at t his time. We will follow. Velia Tabor MD cc: [phone] TT: 06/14/2016 16:25:50 Confirmation # [id number] Dictation # [id number] en
[2016-06-15] MEDS: Enoxaparin 40 mg Syringe SC SCH (09:05)
--- NOTE | 2016-06-15 12:26 | PCM.PYCHPN ---
Psychiatric Progress Note - Psychiatric Progress Note Patient seen today, length of contact: 16 min Patient Chief Complaint: "I don't want meds" Problems Identified/Issues Discussed: Pt is seen, case discussed, chart reviewed. Refusing seroquel b/c he doesn't need it and fears SEs Risks discussed Still grandiose, hypertalkative and at times irrational. No SI, HI or AVH Medication Change: Yes (dc seroquel) Medical Record Reviewed: Yes Mental Status Examination - Cognitive Function Orientation: Person, Place, Situation, Time Memory: Impaired Attention: Poor Concentration: Poor Association: Loose Fund of Knowledge: WNL - Mood Mood: Anxious, Other (labile) - Affect Affect: Other (labile) - Speech Speech: Pressured (somewhat) - Formal Thought Process Formal Thought Process: Loosening of associations, Perservation - Suicidal Ideation Suicidal Ideation: No - Homicidal Ideation Homicidal Ideation: No Goal/Treatment Plan - Goal/Treatment Plan Need for Continued Stay: Other (medically not stabilized) Progress Toward Problem(s) and Goals/Treatment Plan: Support and psychoed given DC seroquel per his request Cleared for d/c no imminent risk
[2016-06-15] MEDS: Sodium Chloride 0.9% 1,000 ML IV SCH (15:15)
--- NOTE | 2016-06-15 15:20 | CP.PCM.PN ---
<Elzbieta Crowe - Last Filed: 06/15/16 15:17> Subjective - Date & Time of Evaluation Date of Evaluation: 06/15/16 Time of Evaluation: 07:00 - Subjective Subjective: Internal medicine progress note for Dr. Way-Elzbieta Crowe, PGY-1 Pt S & E at bedside. Pt reports urinary frequency and thirst continues, but improved, now feeling urinary urgency and incomplete urination sensation. Denies dysuria, N/V/F/C, SOB, CP, abdominal pain. Appetite good. Objective - Vital Signs/Intake and Output Vital Signs (last 24 hours): Temp Pulse Resp BP Pulse Ox 97.6 F 80 20 139/86 96 06/15/16 07:00 06/15/16 07:00 06/15/16 07:00 06/15/16 09:04 06/15/16 07:00 Intake and Output: 06/15/16 06/15/16 06:59 18:59 Intake Total 600 Output Total 2300 Balance -1700 - Medications Medications: Current Medications Acetaminophen (Tylenol 325mg Tab) 650 mg PO Q6 PRN PRN Reason: Headache Last Admin: 06/13/16 10:46 Dose: 650 mg Aspirin (Aspirin Chewable) 81 mg PO DAILY [facility] Last Admin: 06/15/16 09:04 Dose: 81 mg Benzocaine/Menthol (Cepacol Sore Throat) 1 zion MT Q6 PRN PRN Reason: Sore Throat Last Admin: 06/13/16 10:47 Dose: 1 zion Clopidogrel Bisulfate (Plavix) 75 mg PO DAILY [facility] Last Admin: 06/15/16 09:05 Dose: 75 mg Enoxaparin Sodium (Lovenox) 40 mg SC DAILY [facility] Last Admin: 06/15/16 09:05 Dose: 40 mg Famotidine (Pepcid) 20 mg PO DAILY [facility] Last Admin: 06/15/16 09:05 Dose: 20 mg Folic Acid (Folic Acid) 1 mg PO DAILY [facility] Last Admin: 06/15/16 09:04 Dose: 1 mg Gabapentin (Neurontin) 100 mg PO TID [facility] Last Admin: 06/15/16 09:05 Dose: 100 mg Sodium Chloride (Sodium Chloride 0.9%) 1,000 mls @ 100 mls/hr IV .Q10H [facility] Insulin Aspart (Novolog) 0 unit SC ACHS [facility] PRN Reason: Protocol Last Admin: 06/15/16 12:36 Dose: Not Given Insulin Human Isoph/Insulin Regular (Novolin 70/30 (70/30 Units/Ml) 10 Ml) 14 units SC ACD [facility] Last Admin: 06/14/16 17:30 Dose: 14 units Insulin Human Isoph/Insulin Regular (Novolin 70/30 (70/30 Units/Ml) 10 Ml) 24 units SC ACB [facility] Last Admin: 06/15/16 08:22 Dose: 24 units Insulin Human NPH (Novolin N) 10 unit SC HS [facility] Last Admin: 06/14/16 21:24 Dose: 10 unit Lisinopril (Zestril) 10 mg PO DAILY [facility] Last Admin: 06/15/16 09:05 Dose: 10 mg Lorazepam (Ativan) 0.5 mg PO Q8H PRN PRN Reason: Anxiety Metoprolol Tartrate (Lopressor) 25 mg PO DAILY [facility] Last Admin: 06/15/16 09:04 Dose: 25 mg Ondansetron HCl (Zofran Inj) 4 mg IVP Q6H PRN PRN Reason: Nausea/Vomiting Promethazine HCl/Codeine (Phenergan/Codeine Oral Syrup) 5 ml PO Q4 PRN PRN Reason: Cough - Labs Labs: 06/14/16 06:41 06/14/16 06:36 - Constitutional Appears: Non-toxic, No Acute Distress - Head Exam Head Exam: ATRAUMATIC, NORMAL INSPECTION, NORMOCEPHALIC - Eye Exam Eye Exam: EOMI, Normal appearance, PERRL Pupil Exam: NORMAL ACCOMODATION, PERRL - ENT Exam ENT Exam: Mucous Membranes Moist, Normal Exam - Neck Exam Neck Exam: Full ROM, Normal Inspection - Respiratory Exam Respiratory Exam: Clear to Ausculation Bilateral, NORMAL BREATHING PATTERN - Cardiovascular Exam Cardiovascular Exam: REGULAR RHYTHM, +S1, +S2. absent: Murmur - GI/Abdominal Exam GI & Abdominal Exam: Soft, Normal Bowel Sounds. absent: Tenderness - Extremities Exam Extremities Exam: Normal Capillary Refill, Normal Inspection. absent: Full ROM (Does not move LUE, hand contracted), Joint Swelling, Pedal Edema - Neurological Exam Neurological Exam: Alert, Awake, CN II-XII Intact, Oriented x3 - Psychiatric Exam Psychiatric exam: Normal Affect, Normal Mood - Skin Skin Exam: Dry, Intact, Normal Color, Warm Assessment and Plan - Assessment and Plan (Free Text) Assessment: DM type 1 Lipid panel: TG 307, Chol 220, LDL 126, HDL 39 A1c 12 Blood sugars: 98-258 AM blood sugars: 258 Urine Microalbumin high at 38.1 Consistent carb diet Endo following- Cam- adjusting insulin and DM Rx regimen Metabolic acidosis due to DKA- resolving Monitor sugars Endo consulted- Pt stated on Levemir, ISS, and meal time insulin- adjusting PRN Dehydration- improved secondary to DKA FU labs Cepacol for dry mouth Urinary frequency FU U/A Hypokalemia FU labs Monitor Transaminitis AST 614 ALT 300 Holding statin Monitor CAD Echo-->pending Crestor 5mg PO HS Lipid panel: TG 307, Chol 220, LDL 126, HDL 39 ASA 81mg PO daily Cont home meds: Lopressor, Plavix S/p fall in CT head (06/12/16): 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, scattered nonspecific white matter changes ASA 81mg PO daily Hx hemorrhagic CVA CT head (06/12/16): 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, scattered nonspecific white matter changes ASA 81mg PO daily Crestor 5mg PO HS - holding 2/2 transaminitis PT/OT eval Persistent cough Promethazine w/codeine PRN Monitor Hypertension BP 139/86- WNL monitor vital signs Anxiety Ativan 0.5mg PO Q 8hour PRN Psych following- Seroquel 50mg HS increased to 100mg HS, cleared for d/c Chest pain- resolved indeterminate troponin Cathed in 04/2016 GI/DVT ppx Protonix 40mg IVP daily SCDs Lovenox 40mg subqdaily Dispo Cont home meds: Cymbalta changed to Gabapentin as per psych, Plavix, Folic acid , Lopressor, Lisinopril PT/OT Homeless SW consult Per psych- pt desires to d/c to [facility] for outpatient psych tx - 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 attending <Den Way - Last Filed: 06/15/16 16:31> Objective - Vital Signs/Intake and Output Vital Signs (last 24 hours): Temp Pulse Resp BP Pulse Ox 97.6 F 80 20 139/86 96 06/15/16 07:00 06/15/16 07:00 06/15/16 07:00 06/15/16 09:04 06/15/16 07:00 Intake and Output: 06/15/16 06/15/16 06:59 18:59 Intake Total 600 Output Total 2300 Balance -1700 - Medications Medications: Current Medications Acetaminophen (Tylenol 325mg Tab) 650 mg PO Q6 PRN PRN Reason: Headache Last Admin: 06/13/16 10:46 Dose: 650 mg Aspirin (Aspirin Chewable) 81 mg PO DAILY [facility] Last Admin: 06/15/16 09:04 Dose: 81 mg Benzocaine/Menthol (Cepacol Sore Throat) 1 zion MT Q6 PRN PRN Reason: Sore Throat Last Admin: 06/13/16 10:47 Dose: 1 zion Clopidogrel Bisulfate (Plavix) 75 mg PO DAILY [facility] Last Admin: 06/15/16 09:05 Dose: 75 mg Enoxaparin Sodium (Lovenox) 40 mg SC DAILY [facility] Last Admin: 06/15/16 09:05 Dose: 40 mg Famotidine (Pepcid) 20 mg PO DAILY [facility] Last Admin: 06/15/16 09:05 Dose: 20 mg Folic Acid (Folic Acid) 1 mg PO DAILY [facility] Last Admin: 06/15/16 09:04 Dose: 1 mg Gabapentin (Neurontin) 100 mg PO TID [facility] Last Admin: 06/15/16 09:05 Dose: 100 mg Sodium Chloride (Sodium Chloride 0.9%) 1,000 mls @ 100 mls/hr IV .Q10H [facility] Insulin Aspart (Novolog) 0 unit SC ACHS [facility] PRN Reason: Protocol Last Admin: 06/15/16 12:36 Dose: Not Given Insulin Human Isoph/Insulin Regular (Novolin 70/30 (70/30 Units/Ml) 10 Ml) 14 units SC ACD [facility] Last Admin: 06/14/16 17:30 Dose: 14 units Insulin Human Isoph/Insulin Regular (Novolin 70/30 (70/30 Units/Ml) 10 Ml) 24 units SC ACB [facility] Last Admin: 06/15/16 08:22 Dose: 24 units Insulin Human NPH (Novolin N) 10 unit SC HS [facility] Last Admin: 06/14/16 21:24 Dose: 10 unit Lisinopril (Zestril) 10 mg PO DAILY [facility] Last Admin: 06/15/16 09:05 Dose: 10 mg Lorazepam (Ativan) 0.5 mg PO Q8H PRN PRN Reason: Anxiety Metoprolol Tartrate (Lopressor) 25 mg PO DAILY [facility] Last Admin: 06/15/16 09:04 Dose: 25 mg Ondansetron HCl (Zofran Inj) 4 mg IVP Q6H PRN PRN Reason: Nausea/Vomiting Promethazine HCl/Codeine (Phenergan/Codeine Oral Syrup) 5 ml PO Q4 PRN PRN Reason: Cough - Labs Labs: 06/14/16 06:41 06/14/16 06:36 Attending/Attestation - Attestation I have personally seen and examined this patient.: Yes I have fully participated in the care of the patient.: Yes I have reviewed all pertinent clinical information, including history, physical exam and plan: Yes Notes (Text): Medical attending: Patient was seen and examined by me, agrees the above note by medical staff coordinator. The patient had didn't have morning lab work as if he had so will try to get hold of lab work for today. I had a discussion with the patient he has a history of an insulin pump that he uses and this was successful until he ran out of medication just recently. He explains that he does not like insulin flex pens or insulin needle and syringes. And he really wants to use his insulin pump. Reviewed how to reach out to endocrinology to see what options are available for this patient. He is tolerating his diet better now he's not feeling as fatigued he is very alert and talkative. Maintain him on a slow intravenous fluids, insulin as well Thank you very much, Den Way
[2016-06-15 17:20] LABS: EOS # 0.2 K/uL (0.0-0.7); EOS % 8.1 % (0.0-4.0); HEMATOCRIT 31.4 % (35.0-51.0); LYMPH # 0.7 K/uL (1.0-4.3); LYMPH % 24.5 % (20.0-40.0); MEAN CELL VOLUME 89.2 fL (80.0-94.0); MEAN CORPUSCULAR HEMOGLOBIN 30.4 pg (27.0-31.0); MEAN PLATELET VOLUME 8.2 fL (7.2-11.7); MONO # 0.2 K/uL (0.0-0.8); RED CELL DISTRIBUTION WIDTH 12.8 % (11.5-14.5)
[2016-06-15 18:05] LABS: CHLORIDE 98 mmol/L (98-107); POTASSIUM 4.3 mmol/L (3.6-5.2)
[2016-06-15 18:07] LABS: ALB/GLOB RATIO 1.3 (1.0-2.1); ALKALINE PHOSPHATASE 240 U/L (38-126); BILIRUBIN,TOTAL 0.5 mg/dL (0.2-1.3); BLOOD UREA NITROGEN 16 mg/dL (9-20); CARBON DIOXIDE 24 mmol/L (22-30); GFR AFRICAN-AMERICAN > 60; TOTAL PROTEIN 6.2 g/dL (6.3-8.3)
[2016-06-15 18:08] LABS: CALCIUM 8.5 mg/dl (8.6-10.4); GLUCOSE,RANDOM 377 mg/dL (75-110); MAGNESIUM 1.8 mg/dL (1.6-2.3); PHOSPHOROUS 3.6 mg/dL (2.5-4.5)
[2016-06-15 18:23] LABS: AST/SGOT 1007 U/L (17-59)
[2016-06-15 18:25] LABS: SODIUM 132 mmol/L (132-148)
--- NOTE | 2016-06-15 18:45 | CARD ---
APPROVED REPORT EXAM: Two-dimensional and M-mode echocardiogram with Doppler and color Doppler. Other Information Quality : GoodRhythm : NSR INDICATION CVA/TIA CAD Chest Pain RISK FACTORS Diabetes M-Mode DIMENSIONS RVDd1.91 (2.1-3.2cm)Left Atrium (MM)3.63 (2.5-4.0cm) IVSd0.98 (0.7-1.1cm)Aortic Root3.36 (2.2-3.7cm) LVDd5.31 (4.0-5.6cm)Aortic Cusp Exc.1.99 (1.5-2.0cm) PWd1.02 (0.7-1.1cm)FS (%) 38 % LVDs3.32 (2.0-3.8cm)LVEF (%)67 (>50%) Aortic Valve AoV Peak Kpwnezir274.9cm/Nick Peak GR.7mmHg Mitral Valve MV E Qbldntsq76.9cm/sMV A Yebwfubb26.0cm/sE/A ratio0.7 TDI E/Lateral E'0.0E/Medial E'0.0 Tricuspid Valve TR Peak Bafpeaqf989hh/sTR Peak Gr.[id number] LEFT VENTRICLE The left ventricle is normal size. There is normal left ventricular wall thickness. The left ventricular function is normal. The left ventricular ejection fraction is within the normal range. There is normal LV segmental wall motion. Transmitral Doppler flow pattern is abnormal. RIGHT VENTRICLE The right ventricle is normal size. ATRIA The left atrium size is normal. The right atrium size is normal. AORTIC VALVE The aortic valve is normal in structure. MITRAL VALVE Mitral regurgitation is trace. TRICUSPID VALVE There is trace to mild tricuspid regurgitation. <Conclusion> Normal LV systolic function. Diastolic dysfunction. Trace MR. Trace to mild TR.
[2016-06-15 19:41] LABS: ALT/SGPT 1832 U/L (21-72)
[2016-06-15] MEDS: (Novolin N) Insulin Human Isophane (NPH) 100 u/ml 10 ml vial SC SCH (21:27)
--- NOTE | 2016-06-16 07:11 | PN ---
DATE: 06/15/2016 In room This is a 50-year-old male with recent uncontrolled type 1 insulin-dependent diabetes, presenting her e with diabetic ketoacidosis and dehydration and is now being followed closely for metabolic manageme nt. His glycemic levels are fluctuating ____ at this time and the latest glucose levels have ranged from 98-117 last night as noted. ____ 150 today as noted. His latest chemistry showed a BUN of 17, sodium 142, potassium 3.3, chloride 1-8, CO2 of 25, glucose 40 and creatinine 0.4. His hemoglobin A1 c is 12.3%, indicative of ____ control of his diabetic condition. So at this time ____ regimen to al low for dose equilibration and keep him on Novolin ____ given as ____ units ____. We will continue a lso the basal insulin given as Novolin NPH as 10 units subQ at bedtime daily as given. We will titra te incrementally as indicated to optimize metabolic control. We will follow. Velia Tabor MD cc: [phone] TT: 06/15/2016 16:39:54 Confirmation # [id number] Dictation # [id number] tn
[2016-06-16 08:02] LABS: BASO % 0.9 % (0.0-2.0); EOS # 0.4 K/uL (0.0-0.7); EOS % 11.3 % (0.0-4.0); HEMATOCRIT 33.2 % (35.0-51.0); LYMPH # 0.9 K/uL (1.0-4.3); LYMPH % 23.7 % (20.0-40.0); MEAN CELL VOLUME 90.3 fL (80.0-94.0); MEAN CORPUSCULAR HEMOGLOBIN 30.1 pg (27.0-31.0); MEAN CORPUSCULAR HGB CONC 33.4 g/dL (33.0-37.0); MEAN PLATELET VOLUME 8.2 fL (7.2-11.7); MONO # 0.3 K/uL (0.0-0.8); MONO % 8.9 % (0.0-10.0); NRBC % 0.1 % (0.0-2.0); RED CELL DISTRIBUTION WIDTH 13.1 % (11.5-14.5); WHITE BLOOD COUNT 3.8 K/uL (4.8-10.8)
[2016-06-16 08:09] LABS: CHLORIDE 98 mmol/L (98-107)
[2016-06-16 08:10] LABS: POTASSIUM 5.1 mmol/L (3.6-5.2); SODIUM 134 mmol/L (132-148)
[2016-06-16 08:12] LABS: ALB/GLOB RATIO 1.3 (1.0-2.1); ALKALINE PHOSPHATASE 224 U/L (38-126); AST/SGOT 641 U/L (17-59); BILIRUBIN,TOTAL 0.5 mg/dL (0.2-1.3); BLOOD UREA NITROGEN 16 mg/dL (9-20); CARBON DIOXIDE 26 mmol/L (22-30); GFR AFRICAN-AMERICAN > 60; GLUCOSE,RANDOM 346 mg/dL (75-110); PHOSPHOROUS 4.2 mg/dL (2.5-4.5); TOTAL PROTEIN 6.4 g/dL (6.3-8.3)
[2016-06-16 08:13] LABS: ALT/SGPT 926 U/L (21-72); CALCIUM 8.6 mg/dl (8.6-10.4); MAGNESIUM 1.8 mg/dL (1.6-2.3)
[2016-06-16] MEDS: (Novolin 70/30) NPH/Regular 70/30 Units/ml 10 ml vial SC SCH ×2 (08:54→18:20)
[2016-06-16] MEDS: (Novolog) Insulin Aspart, Recombinant 100 u/ml 10 ml vial SC SCH ×4 (08:56→21:40)
[2016-06-16] MEDS: Enoxaparin 40 mg Syringe SC SCH (10:44)
[2016-06-16] MEDS: Sodium Chloride 0.9% 1,000 ML IV SCH ×2 (12:51→20:32)
[2016-06-16 13:30] LABS: RBC URINE < 1 /hpf (0-3); URINE BILIRUBIN NEGATIVE (NEGATIVE); URINE BLOOD NEGATIVE (NEGATIVE); URINE COLOR Yellow (YELLOW); URINE GLUCOSE (UA) 3+ mg/dL (Normal); URINE KETONE TRACE mg/dL (NEGATIVE); URINE LEUKOCYTE ESTERASE NEG Leu/uL (Negative); URINE PROTEIN NEGATIVE (NEGATIVE); URINE UROBILINOGEN NORMAL mg/dL (0.2-1.0); WBC URINE 1 /hpf (0-5)
--- NOTE | 2016-06-16 14:02 | CP.PCM.CON ---
History of Present Illness - History of Present Illness History of Present Illness: Internal medicine progress note for Dr. Praveen Crowe, PGY-1 Pt S & E at bedside. Pt continues with urinary frequency, thirst- improving, still has urinary urgency and incomplete urination sensation. Admits to polyphagia. Denies dysuria, N/V/F/C, SOB, CP, abdominal pain. Was told pt lost his IV access overnight- was not replaced this AM. Past Patient History - Past Medical History & Family History Past Medical History?: Yes - Past Social History Smoking Status: Never Smoked - CARDIAC Hx Hypertension: Yes - NEUROLOGICAL HX Cerebrovascular Accident: Yes (2013 W/ LEFT SIDED WEAKNESS) - ENDOCRINE/METABOLIC Hx Diabetes Mellitus Type 1: Yes (ON INSULIN PUMP) - MUSCULOSKELETAL/RHEUMATOLOGICAL Hx Falls: No - PSYCHIATRIC Hx Substance Use: No - ANESTHESIA Hx Anesthesia: No Hx Anesthesia Reactions: No Hx Malignant Hyperthermia: No Has any member of the family had a problem w/ anesthesia?: No Meds Allergies/Adverse Reactions: Allergies Allergy/AdvReac Type Severity Reaction Status Date / Time No Known Allergies Allergy Unverified 06/12/16 04:05 - Medications Medications: Current Medications Acetaminophen (Tylenol 325mg Tab) 650 mg PO Q6 PRN PRN Reason: Headache Last Admin: 06/13/16 10:46 Dose: 650 mg Aspirin (Aspirin Chewable) 81 mg PO DAILY [facility] Last Admin: 06/16/16 10:42 Dose: 81 mg Benzocaine/Menthol (Cepacol Sore Throat) 1 zion MT Q6 PRN PRN Reason: Sore Throat Last Admin: 06/13/16 10:47 Dose: 1 zion Clopidogrel Bisulfate (Plavix) 75 mg PO DAILY [facility] Last Admin: 06/16/16 10:42 Dose: 75 mg Enoxaparin Sodium (Lovenox) 40 mg SC DAILY [facility] Last Admin: 06/16/16 10:44 Dose: 40 mg Famotidine (Pepcid) 20 mg PO DAILY [facility] Last Admin: 06/16/16 10:42 Dose: 20 mg Folic Acid (Folic Acid) 1 mg PO DAILY [facility] Last Admin: 06/16/16 10:48 Dose: 1 mg Gabapentin (Neurontin) 100 mg PO TID [facility] Last Admin: 06/16/16 10:48 Dose: 100 mg Sodium Chloride (Sodium Chloride 0.9%) 1,000 mls @ 100 mls/hr IV .Q10H [facility] Last Admin: 06/16/16 12:51 Dose: Not Given Insulin Aspart (Novolog) 0 unit SC ACHS [facility] PRN Reason: Protocol Last Admin: 06/16/16 12:18 Dose: 4 unit Insulin Human Isoph/Insulin Regular (Novolin 70/30 (70/30 Units/Ml) 10 Ml) 14 units SC ACD [facility] Last Admin: 06/15/16 17:15 Dose: 14 units Insulin Human Isoph/Insulin Regular (Novolin 70/30 (70/30 Units/Ml) 10 Ml) 24 units SC ACB [facility] Last Admin: 06/16/16 08:54 Dose: 24 units Insulin Human NPH (Novolin N) 10 unit SC HS [facility] Last Admin: 06/15/16 21:27 Dose: 10 unit Lisinopril (Zestril) 10 mg PO DAILY [facility] Last Admin: 06/16/16 10:42 Dose: 10 mg Lorazepam (Ativan) 0.5 mg PO Q8H PRN PRN Reason: Anxiety Metoprolol Tartrate (Lopressor) 25 mg PO DAILY [facility] Last Admin: 06/16/16 10:43 Dose: 25 mg Ondansetron HCl (Zofran Inj) 4 mg IVP Q6H PRN PRN Reason: Nausea/Vomiting Promethazine HCl/Codeine (Phenergan/Codeine Oral Syrup) 5 ml PO Q4 PRN PRN Reason: Cough Physical Exam - Constitutional Appears: Well, Non-toxic, No Acute Distress - Head Exam Head Exam: ATRAUMATIC, NORMAL INSPECTION, NORMOCEPHALIC - Eye Exam Eye Exam: EOMI, Normal appearance, PERRL Pupil Exam: NORMAL ACCOMODATION, PERRL - ENT Exam ENT Exam: Mucous Membranes Moist, Normal Exam - Neck Exam Neck exam: Positive for: Full Rom, Normal Inspection - Respiratory Exam Respiratory Exam: Clear to Auscultation Bilateral, NORMAL BREATHING PATTERN. absent: Rales, Rhonchi, Wheezes, Respiratory Distress, Stridor - Cardiovascular Exam Cardiovascular Exam: REGULAR RHYTHM, +S1, +S2 - GI/Abdominal Exam GI & Abdominal Exam: Normal Bowel Sounds, Soft, Tenderness (suprapubic). absent : Distended, Firm, Guarding, Hernia - Extremities Exam Extremities exam: Positive for: normal inspection. Negative for: full ROM ( decreased LUE, left hand contracted) - Neurological Exam Neurological exam: Alert, Oriented x3 Additional comments: slurred speech, left sided facial and lip droop - Psychiatric Exam Psychiatric exam: Normal Affect, Normal Mood - Skin Skin Exam: Dry, Intact, Normal Color, Warm Results - Vital Signs Recent Vital Signs: Last Vital Signs Temp 97.8 F 06/16/16 00:00 Pulse 74 06/16/16 00:00 Resp 20 06/16/16 00:00 BP 138/78 06/16/16 10:43 Pulse Ox 98 06/16/16 00:00 - Labs Result Diagrams: 06/16/16 07:49 06/16/16 07:49 Labs: Laboratory Results - last 24 hr 06/15/16 06/15/16 06/15/16 16:07 17:07 21:06 WBC 3.0 L RBC 3.52 L Hgb 10.7 L Hct 31.4 L MCV 89.2 MCH 30.4 MCHC 34.0 RDW 12.8 Plt Count 200 MPV 8.2 Neut % (Auto) 59.4 Lymph % (Auto) 24.5 Valley % (Auto) 7.0 Eos % (Auto) 8.1 H Baso % (Auto) 1.0 Neut # 1.8 Lymph # 0.7 L [place] # 0.2 Eos # 0.2 Baso # 0.0 Sodium 132 Potassium 4.3 Chloride 98 Carbon Dioxide 24 Anion Gap 15 BUN 16 Creatinine 0.8 Est GFR ( Amer) > 60 Est GFR (Non-Af Amer) > 60 POC Glucose (mg/dL) 315 H 377 H Random Glucose 377 H Calcium 8.5 L Phosphorus 3.6 Magnesium 1.8 Total Bilirubin 0.5 AST 1007 H ALT 1832 H Alkaline Phosphatase 240 H D Total Protein 6.2 L Albumin 3.5 Globulin 2.7 Albumin/Globulin Ratio 1.3 Urine Color Urine Clarity Urine pH Ur Specific [place] Urine Protein Urine Glucose (UA) Urine Ketones Urine Blood Urine Nitrate Urine Bilirubin Urine Urobilinogen Ur Leukocyte Esterase Urine WBC (Auto) Urine RBC (Auto) 06/16/16 06/16/16 06/16/16 02:12 07:49 08:29 WBC 3.8 L RBC 3.68 L Hgb 11.1 L Hct 33.2 L MCV 90.3 MCH 30.1 MCHC 33.4 RDW 13.1 Plt Count 208 MPV 8.2 Neut % (Auto) 55.2 Lymph % (Auto) 23.7 Valley % (Auto) 8.9 Eos % (Auto) 11.3 H Baso % (Auto) 0.9 Neut # 2.1 Lymph # 0.9 L [place] # 0.3 Eos # 0.4 Baso # 0.0 Sodium 134 Potassium 5.1 Chloride 98 Carbon Dioxide 26 Anion Gap 15 BUN 16 Creatinine 0.9 Est GFR ( Amer) > 60 Est GFR (Non-Af Amer) > 60 POC Glucose (mg/dL) 95 468 H* Random Glucose 346 H Calcium 8.6 Phosphorus 4.2 Magnesium 1.8 Total Bilirubin 0.5 AST 641 H D ALT 926 H D Alkaline Phosphatase 224 H Total Protein 6.4 Albumin 3.6 Globulin 2.8 Albumin/Globulin Ratio 1.3 Urine Color Urine Clarity Urine pH Ur Specific [place] Urine Protein Urine Glucose (UA) Urine Ketones Urine Blood Urine Nitrate Urine Bilirubin Urine Urobilinogen Ur Leukocyte Esterase Urine WBC (Auto) Urine RBC (Auto) 06/16/16 06/16/16 11:49 13:13 WBC RBC Hgb Hct MCV MCH MCHC RDW Plt Count MPV Neut % (Auto) Lymph % (Auto) Valley % (Auto) Eos % (Auto) Baso % (Auto) Neut # Lymph # Valley # Eos # Baso # Sodium Potassium Chloride Carbon Dioxide Anion Gap BUN Creatinine Est GFR ( Amer) Est GFR (Non-Af Amer) POC Glucose (mg/dL) 372 H Random Glucose Calcium Phosphorus Magnesium Total Bilirubin AST ALT Alkaline Phosphatase Total Protein Albumin Globulin Albumin/Globulin Ratio Urine Color Yellow Urine Clarity Hazy Urine pH 5.0 Ur Specific [place] 1.022 Urine Protein Negative Urine Glucose (UA) 3+ H Urine Ketones Trace Urine Blood Negative Urine Nitrate Negative Urine Bilirubin Negative Urine Urobilinogen Normal Ur Leukocyte Esterase Neg Urine WBC (Auto) 1 Urine RBC (Auto) < 1 Assessment & Plan - Assessment and Plan (Free Text) Assessment: DM type 1 Lipid panel: TG 307, Chol 220, LDL 126, HDL 39 A1c 12 Blood sugars: 98-468 AM blood sugars: 468 Urine Microalbumin high at 38.1 Consistent carb diet Endo following- Cam- adjusting insulin and DM Rx regimen PRN Metabolic acidosis due to DKA- resolving Monitor sugars Endo consulted- Pt stated on Levemir, ISS, and meal time insulin- adjusting PRN Dehydration- improved secondary to DKA BUN 16 Cr 0.9 NS@100 Cepacol for dry mouth Urinary frequency U/A neg Likely due to glucouria Monitor Transaminitis AST 641 ALT 966 ALP 244 NS@100 Holding statin Monitor CAD Echo w/normal LV systolic function, diastolic dysfunction, Trace MR, trace- mild TR, EF 67% Crestor 5mg PO HS Lipid panel: TG 307, Chol 220, LDL 126, HDL 39 ASA 81mg PO daily Cont home meds: Lopressor, Plavix S/p fall in CT head (06/12/16): 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, scattered nonspecific white matter changes ASA 81mg PO daily Hx hemorrhagic CVA CT head (06/12/16): 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, scattered nonspecific white matter changes ASA 81mg PO daily Crestor 5mg PO HS - holding 2/2 transaminitis PT/OT eval Persistent cough Promethazine w/codeine PRN Monitor Hypertension BP 138/78- WNL monitor vital signs Anxiety Ativan 0.5mg PO Q 8hour PRN Psych following- Seroquel d/c'd, cleared for d/c Hypokalemia- resolved K 5.1 Monitor Chest pain- resolved indeterminate troponin Cathed in 04/2016 GI/DVT ppx Protonix 40mg IVP daily SCDs Lovenox 40mg subqdaily Dispo Cont home meds: Gabapentin as per psych, Plavix, Folic acid, Lopressor, Lisinopril PT/OT Homeless SW consult IVF Re-check labs in AM Per psych- pt desires to d/c to [facility] [place] - 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 attending - Date & Time Date: 06/16/16 Time: 07:00
--- NOTE | 2016-06-16 14:08 | CP.PCM.PN ---
<Elzbieta Crowe - Last Filed: 06/16/16 14:06> Subjective - Date & Time of Evaluation Date of Evaluation: 06/16/16 Time of Evaluation: 07:00 - Subjective Subjective: Internal medicine progress note for Dr. Way-Elzbieta Crowe, PGY-1 Pt S & E at bedside. Pt continues with urinary frequency, thirst- improving, still has urinary urgency and incomplete urination sensation. Admits to polyphagia. Denies dysuria, N/V/F/C, SOB, CP, abdominal pain. Was told pt lost his IV access overnight- was not replaced this AM. Objective - Vital Signs/Intake and Output Vital Signs (last 24 hours): Temp Pulse Resp BP Pulse Ox 97.8 F 74 20 138/78 98 06/16/16 00:00 06/16/16 00:00 06/16/16 00:00 06/16/16 10:43 06/16/16 00:00 Intake and Output: 06/16/16 06/16/16 06:59 18:59 Intake Total 900 Output Total 600 Balance 300 - Medications Medications: Current Medications Acetaminophen (Tylenol 325mg Tab) 650 mg PO Q6 PRN PRN Reason: Headache Last Admin: 06/13/16 10:46 Dose: 650 mg Aspirin (Aspirin Chewable) 81 mg PO DAILY [facility] Last Admin: 06/16/16 10:42 Dose: 81 mg Benzocaine/Menthol (Cepacol Sore Throat) 1 zion MT Q6 PRN PRN Reason: Sore Throat Last Admin: 06/13/16 10:47 Dose: 1 zion Clopidogrel Bisulfate (Plavix) 75 mg PO DAILY [facility] Last Admin: 06/16/16 10:42 Dose: 75 mg Enoxaparin Sodium (Lovenox) 40 mg SC DAILY [facility] Last Admin: 06/16/16 10:44 Dose: 40 mg Famotidine (Pepcid) 20 mg PO DAILY [facility] Last Admin: 06/16/16 10:42 Dose: 20 mg Folic Acid (Folic Acid) 1 mg PO DAILY [facility] Last Admin: 06/16/16 10:48 Dose: 1 mg Gabapentin (Neurontin) 100 mg PO TID [facility] Last Admin: 06/16/16 10:48 Dose: 100 mg Sodium Chloride (Sodium Chloride 0.9%) 1,000 mls @ 100 mls/hr IV .Q10H [facility] Last Admin: 06/16/16 12:51 Dose: Not Given Insulin Aspart (Novolog) 0 unit SC ACHS [facility] PRN Reason: Protocol Last Admin: 06/16/16 12:18 Dose: 4 unit Insulin Human Isoph/Insulin Regular (Novolin 70/30 (70/30 Units/Ml) 10 Ml) 14 units SC ACD [facility] Last Admin: 06/15/16 17:15 Dose: 14 units Insulin Human Isoph/Insulin Regular (Novolin 70/30 (70/30 Units/Ml) 10 Ml) 24 units SC ACB [facility] Last Admin: 06/16/16 08:54 Dose: 24 units Insulin Human NPH (Novolin N) 10 unit SC HS [facility] Last Admin: 06/15/16 21:27 Dose: 10 unit Lisinopril (Zestril) 10 mg PO DAILY [facility] Last Admin: 06/16/16 10:42 Dose: 10 mg Lorazepam (Ativan) 0.5 mg PO Q8H PRN PRN Reason: Anxiety Metoprolol Tartrate (Lopressor) 25 mg PO DAILY [facility] Last Admin: 06/16/16 10:43 Dose: 25 mg Ondansetron HCl (Zofran Inj) 4 mg IVP Q6H PRN PRN Reason: Nausea/Vomiting Promethazine HCl/Codeine (Phenergan/Codeine Oral Syrup) 5 ml PO Q4 PRN PRN Reason: Cough - Labs Labs: 06/16/16 07:49 06/16/16 07:49 - Constitutional Appears: Non-toxic, No Acute Distress - Head Exam Head Exam: ATRAUMATIC, NORMAL INSPECTION, NORMOCEPHALIC - Eye Exam Eye Exam: EOMI, Normal appearance, PERRL Pupil Exam: NORMAL ACCOMODATION, PERRL - ENT Exam ENT Exam: Mucous Membranes Moist, Normal Exam - Neck Exam Neck Exam: Full ROM, Normal Inspection - Respiratory Exam Respiratory Exam: Clear to Ausculation Bilateral, NORMAL BREATHING PATTERN - Cardiovascular Exam Cardiovascular Exam: REGULAR RHYTHM, +S1, +S2 - GI/Abdominal Exam GI & Abdominal Exam: Soft, Tenderness (suprapubic), Normal Bowel Sounds - Extremities Exam Extremities Exam: absent: Full ROM (LUE with decreased ROM), Normal Inspection ( left hand contracted), Pedal Edema, Tenderness - Back Exam Back Exam: Full ROM, NORMAL INSPECTION - Neurological Exam Neurological Exam: Alert, Awake, Oriented x3. absent: CN II-XII Intact (left sided facial and lip droop, slurred speech) - Psychiatric Exam Psychiatric exam: Normal Affect, Normal Mood - Skin Skin Exam: Dry, Intact, Normal Color, Warm Assessment and Plan - Assessment and Plan (Free Text) Assessment: DM type 1 Lipid panel: TG 307, Chol 220, LDL 126, HDL 39 A1c 12 Blood sugars: 98-468 AM blood sugars: 468 Urine Microalbumin high at 38.1 Consistent carb diet Endo following- Cam- adjusting insulin and DM Rx regimen PRN Metabolic acidosis due to DKA- resolving Monitor sugars Endo consulted- Pt stated on Levemir, ISS, and meal time insulin- adjusting PRN Dehydration- improved secondary to DKA BUN 16 Cr 0.9 NS@100 Cepacol for dry mouth Urinary frequency U/A neg Likely due to glucouria Monitor Transaminitis AST 641 ALT 966 ALP 244 NS@100 Holding statin Monitor CAD Echo w/normal LV systolic function, diastolic dysfunction, Trace MR, trace- mild TR, EF 67% Crestor 5mg PO HS Lipid panel: TG 307, Chol 220, LDL 126, HDL 39 ASA 81mg PO daily Cont home meds: Lopressor, Plavix S/p fall in CT head (06/12/16): 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, scattered nonspecific white matter changes ASA 81mg PO daily Hx hemorrhagic CVA CT head (06/12/16): 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, scattered nonspecific white matter changes ASA 81mg PO daily Crestor 5mg PO HS - holding 2/2 transaminitis PT/OT eval Persistent cough Promethazine w/codeine PRN Monitor Hypertension BP 138/78- WNL monitor vital signs Anxiety Ativan 0.5mg PO Q 8hour PRN Psych following- Seroquel d/c'd, cleared for d/c Chest pain- resolved indeterminate troponin Cathed in 04/2016 GI/DVT ppx Protonix 40mg IVP daily SCDs Lovenox 40mg subqdaily Dispo Cont home meds: Gabapentin as per psych, Plavix, Folic acid, Lopressor, Lisinopril PT/OT Homeless SW consult IVF Re-check labs in AM Per psych- pt desires to d/c to [facility] [place] tx - 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 attending <[address] - Last Filed: 06/16/16 18:12> Objective - Vital Signs/Intake and Output Vital Signs (last 24 hours): Temp Pulse Resp BP Pulse Ox 97.4 F L 74 20 110/68 97 06/16/16 15:22 06/16/16 15:22 06/16/16 15:22 06/16/16 15:22 06/16/16 15:22 Intake and Output: 06/16/16 06/16/16 06:59 18:59 Intake Total 900 Output Total 600 Balance 300 - Medications Medications: Current Medications Acetaminophen (Tylenol 325mg Tab) 650 mg PO Q6 PRN PRN Reason: Headache Last Admin: 06/13/16 10:46 Dose: 650 mg Aspirin (Aspirin Chewable) 81 mg PO DAILY [facility] Last Admin: 06/16/16 10:42 Dose: 81 mg Benzocaine/Menthol (Cepacol Sore Throat) 1 zion MT Q6 PRN PRN Reason: Sore Throat Last Admin: 06/13/16 10:47 Dose: 1 zion Clopidogrel Bisulfate (Plavix) 75 mg PO DAILY [facility] Last Admin: 06/16/16 10:42 Dose: 75 mg Enoxaparin Sodium (Lovenox) 40 mg SC DAILY [facility] Last Admin: 06/16/16 10:44 Dose: 40 mg Famotidine (Pepcid) 20 mg PO DAILY [facility] Last Admin: 06/16/16 10:42 Dose: 20 mg Folic Acid (Folic Acid) 1 mg PO DAILY [facility] Last Admin: 06/16/16 10:48 Dose: 1 mg Gabapentin (Neurontin) 100 mg PO TID [facility] Last Admin: 06/16/16 17:07 Dose: 100 mg Sodium Chloride (Sodium Chloride 0.9%) 1,000 mls @ 100 mls/hr IV .Q10H [facility] Last Admin: 06/16/16 12:51 Dose: Not Given Insulin Aspart (Novolog) 0 unit SC ACHS [facility] PRN Reason: Protocol Last Admin: 06/16/16 17:07 Dose: 3 unit Insulin Human Isoph/Insulin Regular (Novolin 70/30 (70/30 Units/Ml) 10 Ml) 24 units SC ACD [facility] Insulin Human Isoph/Insulin Regular (Novolin 70/30 (70/30 Units/Ml) 10 Ml) 34 units SC ACB [facility] Insulin Human NPH (Novolin N) 16 unit SC HS [facility] Lisinopril (Zestril) 10 mg PO DAILY [facility] Last Admin: 06/16/16 10:42 Dose: 10 mg Lorazepam (Ativan) 0.5 mg PO Q8H PRN PRN Reason: Anxiety Metoprolol Tartrate (Lopressor) 25 mg PO DAILY [facility] Last Admin: 06/16/16 10:43 Dose: 25 mg Ondansetron HCl (Zofran Inj) 4 mg IVP Q6H PRN PRN Reason: Nausea/Vomiting Promethazine HCl/Codeine (Phenergan/Codeine Oral Syrup) 5 ml PO Q4 PRN PRN Reason: Cough - Labs Labs: 06/16/16 07:49 06/16/16 07:49 Attending/Attestation - Attestation I have personally seen and examined this patient.: Yes I have fully participated in the care of the patient.: Yes I have reviewed all pertinent clinical information, including history, physical exam and plan: Yes Notes (Text): 06/16/16 18:03 Medical Attending: Patient was seen and examined by me. Patient was not in any acute distress when I saw him He is very talkative and needs to be redirected several times. He is very demanding that he wants to have insulin for his insulin pump. He does not want to go on insulin flex pends or vials. I explained to the patient we will look into this however because he is [facility] this may be difficult. He is a and [facility] however [facility] [address]
--- NOTE | 2016-06-16 15:48 | PN ---
DATE: 06/16/2016 ROOM: 553 SUBJECTIVE: This is a 50-year-old male with recent uncontrolled type 1 insulin-dependent diabetes wh o continues to have extremes of glycemic fluctuations and recent hyperglycemic accelerations overnigh t as noted. His glucose levels have ranged from 372-468 mg/dL. The latest chemistry showed a BUN of 16, sodium 1 34, potassium 5.1, chloride 98, CO2 26, glucose 346 and creatinine 0.9. So, at this time, will modify his current premixed insulin regimen and increase the Novolin 70/30 to 34 units a.c. breakfast and 24 units a.c. dinner to start today. Will also increase the basal insuli n given overnight with Novolin NPH to be increased to 16 units subQ at bedtime daily to start tonight . Will titrate incrementally as indicated to optimize metabolic control. Will also continue the low -dose correction scale using regular insulin as given. Will titrate incrementally as indicated to op timize metabolic control. Will also obtain serial chemistries and supplement accordingly as needed. Will follow. Velia Tabor MD cc: [id number] TT: 06/16/2016 15:48:22 Confirmation # [id number] Dictation # [id number] mn
[2016-06-16] MEDS ORDERED: (Novolin N) Insulin Human Isophane (NPH) 100 u/ml 10 ml vial SC SCH (22:00)
[2016-06-17] MEDS: Sodium Chloride 0.9% 1,000 ML IV SCH ×2 (01:03→08:08)
[2016-06-17 06:54] LABS: CHLORIDE 101 mmol/L (98-107); POTASSIUM 4.1 mmol/L (3.6-5.2); SODIUM 137 mmol/L (132-148)
[2016-06-17 06:56] LABS: ALB/GLOB RATIO 1.2 (1.0-2.1); AST/SGOT 279 U/L (17-59); BILIRUBIN,TOTAL 0.5 mg/dL (0.2-1.3); CARBON DIOXIDE 25 mmol/L (22-30); GFR AFRICAN-AMERICAN > 60; TOTAL PROTEIN 6.2 g/dL (6.3-8.3)
[2016-06-17 06:57] LABS: ALKALINE PHOSPHATASE 193 U/L (38-126); ALT/SGPT 677 U/L (21-72); BLOOD UREA NITROGEN 21 mg/dL (9-20); CALCIUM 8.1 mg/dl (8.6-10.4); GLUCOSE,RANDOM 168 mg/dL (75-110); MAGNESIUM 1.8 mg/dL (1.6-2.3); PHOSPHOROUS 4.1 mg/dL (2.5-4.5)
[2016-06-17 07:17] LABS: BASO % 0.7 % (0.0-2.0); EOS # 0.6 K/uL (0.0-0.7); EOS % 11.6 % (0.0-4.0); LYMPH # 1.2 K/uL (1.0-4.3); MEAN CELL VOLUME 89.8 fL (80.0-94.0); MEAN CORPUSCULAR HEMOGLOBIN 30.5 pg (27.0-31.0); MEAN CORPUSCULAR HGB CONC 33.9 g/dL (33.0-37.0); MEAN PLATELET VOLUME 7.8 fL (7.2-11.7); MONO # 0.4 K/uL (0.0-0.8); MONO % 8.3 % (0.0-10.0); RED CELL DISTRIBUTION WIDTH 12.9 % (11.5-14.5)
[2016-06-17] MEDS ORDERED: (Novolin 70/30) NPH/Regular 70/30 Units/ml 10 ml vial SC SCH (07:30)
[2016-06-17] MEDS: (Novolog) Insulin Aspart, Recombinant 100 u/ml 10 ml vial SC SCH ×3 (08:08→16:58)
[2016-06-17] MEDS: Enoxaparin 40 mg Syringe SC SCH (11:00)
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
[2016-06-17 16:26] VITALS: BP 139/82; PULSE 78; TEMP 97.8; O2SAT 98
[2016-06-17] MEDS: (Novolin 70/30) NPH/Regular 70/30 Units/ml 10 ml vial SC SCH (16:58)
== END 2016-06-17 19:00 | disposition home or self-care (01) | DRG 294 ==
LOC: C.ER 03:43 → C.9I 05:12 → MERGE 05:12 → C.5T 06-14 11:21
PROVIDERS: ADMIT Hospitalist; ATTEND Hospitalist
DX: E10.10 Type 1 diabetes mellitus with ketoacidosis without coma (principal); E10.42 Type 1 diabetes mellitus with diabetic polyneuropathy; I69.354 Hemiplegia and hemiparesis following cerebral infarction affecting left non-dominant side; E87.5 Hyperkalemia; E86.0 Dehydration; E87.1 Hypo-osmolality and hyponatremia; E87.6 Hypokalemia; I10 Essential (primary) hypertension; Z96.41 Presence of insulin pump (external) (internal); I25.10 Atherosclerotic heart disease of native coronary artery without angina pectoris; Z59.0 Homelessness; R74.0 Nonspecific elevation of levels of transaminase and lactic acid dehydrogenase [LDH]; R35.0 Frequency of micturition; R05 Cough; F41.9 Anxiety disorder, unspecified

== ENCOUNTER 2016-06-20 23:52 | Inpatient (IN) | payer OTHER ==
[2016-06-21] MEDS ORDERED: Sodium Chloride 0.9% 1,000 ML IV ONE ×5 (00:04→04:10)
[2016-06-21] MEDS ORDERED: (Novolin R) Insulin Human Regular 100 units/ml vial IV STA ×2 (00:04→01:17)
[2016-06-21] MEDS ORDERED: Sodium Chloride 0.9% 1,000 ML ONE ×4 (00:13→09:47)
[2016-06-21 01:09] LABS: BASO # 0.1 K/uL (0.0-0.2); BASO % 0.7 % (0.0-2.0); EOS # 0.1 K/uL (0.0-0.7); EOS % 0.7 % (0.0-4.0); HEMATOCRIT 35.2 % (35.0-51.0); LYMPH # 0.8 K/uL (1.0-4.3); LYMPH % 8.5 % (20.0-40.0); MEAN CELL VOLUME 96.3 fL (80.0-94.0); MEAN CORPUSCULAR HEMOGLOBIN 30.5 pg (27.0-31.0); MEAN CORPUSCULAR HGB CONC 31.6 g/dL (33.0-37.0); MEAN PLATELET VOLUME 7.8 fL (7.2-11.7); MONO # 0.4 K/uL (0.0-0.8); MONO % 4.3 % (0.0-10.0); PLATELET COUNT 418 K/uL (130-400); RED CELL DISTRIBUTION WIDTH 13.5 % (11.5-14.5)
[2016-06-21 01:13] LABS: CHLORIDE 91 mmol/L (98-107); POTASSIUM 5.4 mmol/L (3.6-5.2); SODIUM 127 mmol/L (132-148)
[2016-06-21 01:15] LABS: GFR AFRICAN-AMERICAN > 60
[2016-06-21 01:16] LABS: ALB/GLOB RATIO 1.6 (1.0-2.1); ALKALINE PHOSPHATASE 187 U/L (38-126); ALT/SGPT 347 U/L (21-72); AST/SGOT 62 U/L (17-59); BILIRUBIN,TOTAL 0.8 mg/dL (0.2-1.3); BLOOD UREA NITROGEN 33 mg/dL (9-20); TOTAL PROTEIN 7.3 g/dL (6.3-8.3)
[2016-06-21] MEDS ORDERED: (Novolin R) Insulin Human Regular 100 units/ml vial IV ONE ×2 (01:16)
[2016-06-21 01:17] LABS: CALCIUM 8.8 mg/dl (8.6-10.4)
[2016-06-21 01:19] LABS: CARBON DIOXIDE 6 mmol/L (22-30)
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
[2016-06-21 01:26] LABS: GLUCOSE,RANDOM 758 mg/dL (75-110)
[2016-06-21] MEDS ORDERED: Insulin Human Regular 100 UNIT in Sodium Chloride 0.9% 99 ML IV SCH ×2 (01:30→06:25)
[2016-06-21 02:10] LABS: NEUTROPHIL 85 % (50-75); TOTAL CELLS COUNTED 100
--- NOTE | 2016-06-21 02:39 | CP.PCM.HP ---
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 Patient was recently admitted for DKA from 06/12-06/17/16 (with time spent in the ICU). Upon discharge 4 days ago, he has not filled any insulin or other medications. Patient insists his insulin cartridge is functioning properly, however he does not have strips/ lancets and cannot check fingerstick. Pt reports significant personal issues, forcing him to live out of his car and obtain senior living at hostels, where he cannot find refrigeration for his insulin. He reports starting to feel fatigue/ lethargy, weakness, polyuria, headache, and some nausea today. Also admits to numbness and tingling of right hand (specifically 1st and 2nd digits). He also admits he is fighting off a cold, with associated sore throat, and occasional intermittent/chronic cough with yellow mucus production. Denies f/c, chest pain , palpitations, SOB, emesis, abdominal pain, constipation, diarrhea, or any additional complaints. Note: patient is highly non-compliant with his medication regiment and was found to contradict himself during the interview. He reports borrowing his sister's insulin pump because his is broken, however his sister is currently away on vacation and he has no means to contact her. He also reports his pump is functioning properly, however notes a "chemical interaction" between the insulin and plastic tubing of the device, stating that "it is poorly designed." Additionally, when inquiring about his DM and current plan for management, patient becomes upset and refuses to further participate in conversation. PMH: CAD s/p VA (04/2016) w/cardiac cath, DM Type 1 on insulin pump since 2008, HTN, s/p hemorrhagic CVA (2013) with left sided weakness/paralysis/facial droop , chronic migraines/headache, Left eye vision changes, fall w/head injury while in [facility] (04/16-05/07/2016). PSH: Cath (04/2016 at [facility]) w/1 vessel disease, Appendectomy All: NKDA SH: Social ETOH use #1-2 drinks/3 mos, denies tobacco/illicit drug use; pt recently jailed x 22 days from 04/16-05/07/2016 PMD: Chiara Niru Present on Admission - Present on Admission Any Indicators Present on Admission: Yes History of Uncontrolled Diabetes: Yes Review of Systems - Review of Systems All systems: reviewed and no additional remarkable complaints except Review of Systems: - Constitutional Constitutional: Fatigue, Headache, Lethargy, Weight Loss, Weakness. absent: Chills, Fever - EENT Eyes: Blurred Vision, Change in Vision (present on prior admission). Nose/Mouth/Throat: Sore Throat - Cardiovascular Cardiovascular: absent: Chest Pain, Palpitations - Respiratory Respiratory: Cough (recurrent, intermittent) - Gastrointestinal Gastrointestinal: Nausea. absent: Abdominal Pain, Constipation, Diarrhea, Vomiting - Genitourinary Genitourinary: absent: Dysuria - Musculoskeletal Musculoskeletal: absent: Myalgias - Integumentary Integumentary: absent: Rash - Neurological Neurological: Abnormal Speech (slurred since CVA), Focal Weakness (on left side) , Headaches, Tingling (right hand 1st and 2nd digit), Weakness - Endocrine Endocrine: Fatigue, Polyuria, Polydipsia Past Patient History - Past Medical History & Family History Past Medical History?: Yes - Past Social History Smoking Status: Never Smoked - CARDIAC Hx Hypertension: Yes - NEUROLOGICAL HX Cerebrovascular Accident: Yes (2013 W/ LEFT SIDED WEAKNESS) - ENDOCRINE/METABOLIC Hx Diabetes Mellitus Type 1: Yes (ON INSULIN PUMP) Other/Comment: dka - MUSCULOSKELETAL/RHEUMATOLOGICAL Hx Falls: No - PSYCHIATRIC Hx Anxiety: Yes Hx Substance Use: No - SURGICAL HISTORY Hx Appendectomy: Yes - ANESTHESIA Hx Anesthesia: No Hx Anesthesia Reactions: No Hx Malignant Hyperthermia: No Meds Allergies/Adverse Reactions: Allergies Allergy/AdvReac Type Severity Reaction Status Date / Time No Known Allergies Allergy Verified 06/20/16 23:55 Physical Exam - Additional Findings Additional findings: - Constitutional Appears: Non-toxic, No Acute Distress - Head Exam Head Exam: ATRAUMATIC, NORMAL INSPECTION, NORMOCEPHALIC - Eye Exam Eye Exam: EOMI, Normal appearance, PERRL Pupil Exam: NORMAL ACCOMODATION, PERRL - ENT Exam ENT Exam: Mucous Membranes Moist, Normal Exam - Neck Exam Neck Exam: Full ROM, Normal Inspection - Respiratory Exam Respiratory Exam: Clear to Ausculation Bilateral, NORMAL BREATHING PATTERN - Cardiovascular Exam Cardiovascular Exam: REGULAR RHYTHM, +S1, +S2 - GI/Abdominal Exam GI & Abdominal Exam: Soft, Normal Bowel Sounds. absent: Tenderness - Extremities Exam Extremities Exam: absent: Full ROM (LUE with decreased ROM, L hand contracted, LLE with decreased ROM at L foot), Pedal Edema, Tenderness - Back Exam Back Exam: Full ROM, NORMAL INSPECTION - Neurological Exam Neurological Exam: Alert, Awake, Oriented x3. absent: CN II-XII Intact (left sided facial and lip droop, mildly slurred speech) - Psychiatric Exam Psychiatric exam: Normal Affect, Normal Mood - Skin Skin Exam: Dry, Intact, Normal Color, Warm Results - Vital Signs Recent Vital Signs: Last Vital Signs Temp 98.2 F 06/21/16 02:28 Pulse 94 H 06/21/16 02:28 Resp 20 06/21/16 02:28 BP 117/65 06/21/16 02:28 Pulse Ox 100 06/21/16 02:28 - Labs Result Diagrams: 06/21/16 06:14 06/21/16 06:03 Labs: Laboratory Results - last 24 hr 06/21/16 06/21/16 01:00 01:25 WBC 9.0 D RBC 3.65 L Hgb 11.1 L Hct 35.2 MCV 96.3 H D MCH 30.5 MCHC 31.6 L RDW 13.5 Plt Count 418 H D MPV 7.8 Neut % (Auto) 85.8 H Lymph % (Auto) 8.5 L Gilmer % (Auto) 4.3 Eos % (Auto) 0.7 Baso % (Auto) 0.7 Neut # 7.8 H Lymph # 0.8 L Gilmer # 0.4 Eos # 0.1 Baso # 0.1 Neutrophils % (Manual) 85 H Band Neutrophils % 1 Lymphocytes % (Manual) 8 L Monocytes % (Manual) 6 Platelet Estimate Normal Puncture Site Drawn by rn pCO2 24 L pO2 55 L HCO3 10.0 L ABG pH 7.16 L* ABG Total CO2 9.3 L ABG O2 Saturation 88.4 L ABG Base Excess -18.4 L Geoff Test Na ABG Potassium 5.5 H A-a O2 Difference 65.0 Respiratory Index 1.2 Sodium 127 L Chloride 91 L Glucose > 750 H* D Lactate 3.0 H FiO2 21.0 Crit Value Called To Dr estrella/er Crit Value Called By Chandu hoskins/rt Crit Value Read Back Y Blood Gas Notified Time 110 Potassium 5.4 H Carbon Dioxide 6 L* D Anion Gap 35 H BUN 33 H Creatinine 1.5 Est GFR ( Amer) > 60 Est GFR (Non-Af Amer) 50 POC Glucose (mg/dL) > 500 H* Random Glucose 758 H* D Calcium 8.8 Total Bilirubin 0.8 AST 62 H D ALT 347 H D Alkaline Phosphatase 187 H Total Protein 7.3 Albumin 4.4 Globulin 2.8 Albumin/Globulin Ratio 1.6 Arterial Blood Potassium 5.5 H Serum Ketones Moderate Assessment & Plan - Assessment and Plan (Free Text) Assessment: DM type 1 Glucose 758 on admission recent Lipid panel: TG 307, Chol 220, LDL 126, HDL 39 recent A1c: 12 recent Urine Microalbumin high at 38.[address] Leander Jerez Consistent carb diet Metabolic acidosis due to DKA Monitor sugars Endo consulted- Pt stated on Levemir 20u SC daily, Novolin R SC ACHS (ISS), and Novolin R 10u SC TID JERROD (meal time insulin) adjust as needed ABG pH 7.16, PO2 55L; Lactate 3 --> 1.9 Anion gap: 35 --> 21 Dehydration secondary to DKA BUN/Cr 33/1.5 NS@150cc/hr Urinary frequency U/A 3+ glucose; 2+ ketones Likely due to glucouria Monitor Transaminitis -elevated on prior admission -f/u Hep panel -AST 62; ALT 347; Alk Phos 187 recent: AST 641; ALT 966; ALP 244 NS@150cc/hr Holding statin Monitor Tox - negative CAD -Pt reports he does not take home med Plavix due to cost. 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 Hx Hypertension BP 117/65 on admission Hold home meds - Lisinopril 10mg PO qd, Metoprolol 25mg PO qd monitor vital signs Hx Anxiety Currently doing well, not medicated. prior: Ativan 0.5mg PO Q8H PRN Prophylaxis SCDs NS@150cc/hr Protonix 40mg PO daily Lovenox 40mg SC daily - Date & Time Date: 06/21/16 Time: 02:45 <Mervin Matos P - Last Filed: 07/05/16 19:28> Results - Vital Signs Recent Vital Signs: Last Vital Signs Temp 97.5 F L 06/22/16 07:10 Pulse 80 06/22/16 15:30 Resp 20 06/22/16 07:10 BP 133/81 06/22/16 07:10 Pulse Ox 99 06/22/16 07:10 - Labs Result Diagrams: 06/22/16 06:30 06/22/16 06:48 Attending/Attestation - Attestation I have personally seen and examined this patient.: Yes I have fully participated in the care of the patient.: Yes I have reviewed all pertinent clinical information: Yes
[2016-06-21 06:15] LABS: CHLORIDE 103 mmol/L (98-107)
[2016-06-21 06:16] LABS: POTASSIUM 4.1 mmol/L (3.6-5.2); SODIUM 135 mmol/L (132-148)
[2016-06-21 06:18] LABS: ALB/GLOB RATIO 1.3 (1.0-2.1); ALKALINE PHOSPHATASE 136 U/L (38-126); ALT/SGPT 279 U/L (21-72); AST/SGOT 47 U/L (17-59); BILIRUBIN,TOTAL 0.3 mg/dL (0.2-1.3); BLOOD UREA NITROGEN 31 mg/dL (9-20); CARBON DIOXIDE 15 mmol/L (22-30); GFR AFRICAN-AMERICAN > 60; GLUCOSE,RANDOM 243 mg/dL (75-110)
[2016-06-21 06:18] LABS: BASO # 0.1 K/uL (0.0-0.2); BASO % 0.6 % (0.0-2.0); EOS # 0.1 K/uL (0.0-0.7); EOS % 0.8 % (0.0-4.0); LYMPH # 1.5 K/uL (1.0-4.3); LYMPH % 15.7 % (20.0-40.0); MEAN CELL VOLUME 90.3 fL (80.0-94.0); MEAN CORPUSCULAR HEMOGLOBIN 30.2 pg (27.0-31.0); MEAN CORPUSCULAR HGB CONC 33.4 g/dL (33.0-37.0); MEAN PLATELET VOLUME 7.1 fL (7.2-11.7); MONO # 0.8 K/uL (0.0-0.8); MONO % 8.3 % (0.0-10.0); RED CELL DISTRIBUTION WIDTH 12.6 % (11.5-14.5); WHITE BLOOD COUNT 9.5 K/uL (4.8-10.8)
[2016-06-21 06:19] LABS: ALCOHOL SERUM < 10 mg/dl (0-10); CALCIUM 8.1 mg/dl (8.6-10.4); MAGNESIUM 2.1 mg/dL (1.6-2.3); PHOSPHOROUS 3.3 mg/dL (2.5-4.5)
[2016-06-21 06:23] LABS: VENOUS BLOOD GAS BASE EXCESS -5.8 mmol/L (0.0-2.0); VENOUS BLOOD GAS PCO2 37 mmHg (40-60); VENOUS BLOOD PH 7.33 (7.32-7.43)
[2016-06-21 06:24] LABS: URINE BILIRUBIN NEGATIVE (NEGATIVE); URINE BLOOD NEGATIVE (NEGATIVE); URINE COLOR Yellow (YELLOW); URINE GLUCOSE (UA) 3+ mg/dL (Normal); URINE KETONE 2+ mg/dL (NEGATIVE); URINE LEUKOCYTE ESTERASE NEG Leu/uL (Negative); URINE PROTEIN NEGATIVE (NEGATIVE); URINE UROBILINOGEN NORMAL mg/dL (0.2-1.0); WBC URINE 1 /hpf (0-5)
[2016-06-21] MEDS ORDERED: (Novolin 70/30) NPH/Regular 70/30 Units/ml 10 ml vial SC STA (06:49)
[2016-06-21] MEDS ORDERED: (Novolin R) Insulin Human Regular 100 units/ml vial SC ONE (06:54)
[2016-06-21] MEDS ORDERED: (Novolin 70/30) NPH/Regular 70/30 Units/ml 10 ml vial SC ONE (07:07)
[2016-06-21] MEDS ORDERED: Insulin Detemir 100 units/ml Vial (Levemir) SC ONE (07:08)
[2016-06-21] MEDS: Insulin Detemir 100 units/ml Vial (Levemir) SC SCH ×2 (07:15→10:45)
[2016-06-21] MEDS ORDERED: (Novolin R) Insulin Human Regular 100 units/ml vial SC SCH ×2 (07:30→11:30)
--- NOTE | 2016-06-21 08:03 | RAD ---
PROCEDURE: CHEST RADIOGRAPH, 1 VIEW HISTORY: Diabetic COMPARISON: 06/12/2016 FINDINGS: LUNGS: No focal infiltrate or effusion. Small punctate nodular density at the left lung apex may represent confluence of shadows with ribs and vessels. PLEURA: No pneumothorax or pleural fluid seen. CARDIOVASCULAR: Normal. OSSEOUS STRUCTURES: No significant abnormalities. VISUALIZED UPPER ABDOMEN: Normal. OTHER FINDINGS: None. IMPRESSION: No active disease.
--- NOTE | 2016-06-21 09:07 | US ---
Right upper quadrant abdominal ultrasound History: Transaminitis. Comparison: None available. Technique: Real-time sonography was performed through the right upper quadrant of the abdomen. Findings: Liver: 15.7 centimeters in length. Mild increased echogenicity of the hepatic parenchyma. Gallbladder appears preserved. Common bile duct measures 3 millimeters, within limits. Pancreas not well visualized. Visualized aorta and IVC are preserved. Right kidney: 11.7 x 5.7 x 6.2 centimeters. No calculi or hydronephrosis. Punctate hypoechoic midpole cyst measuring 9 x 8 x 9 millimeters. Impression: Mild increased echogenicity of the hepatic parenchyma suggestive for fatty infiltration versus underlying hepatic parenchymal disease. Clinical correlation. Pancreas not well visualized. 9 millimeter midpole hypoechoic cyst in the right kidney.
[2016-06-21] MEDS ORDERED: (Novolin R) Insulin Human Regular 100 units/ml vial ONE ×3 (09:32→16:53)
[2016-06-21] MEDS: Sodium Chloride 0.9% 1,000 ML IV SCH ×3 (09:50→22:00)
[2016-06-21] MEDS: Enoxaparin 40 mg Syringe SC SCH (12:00)
[2016-06-21] MEDS: (Novolin R) Insulin Human Regular 100 units/ml vial SC SCH ×5 (12:01→22:00)
--- NOTE | 2016-06-21 13:32 | CARD ---
APPROVED REPORT EKG Measurement Heart [id number] <Conclusion> Normal sinus rhythm low voltage limb leads otherwise Normal ECG
[2016-06-21 14:23] LABS: BASO % 0.2 % (0.0-2.0); EOS # 0.3 K/uL (0.0-0.7); EOS % 3.8 % (0.0-4.0); HEMATOCRIT 30.9 % (35.0-51.0); LYMPH # 1.8 K/uL (1.0-4.3); LYMPH % 22.2 % (20.0-40.0); MEAN CELL VOLUME 89.7 fL (80.0-94.0); MEAN CORPUSCULAR HGB CONC 33.4 g/dL (33.0-37.0); MEAN PLATELET VOLUME 6.9 fL (7.2-11.7); MONO # 0.6 K/uL (0.0-0.8); MONO % 6.9 % (0.0-10.0); RED CELL DISTRIBUTION WIDTH 12.8 % (11.5-14.5); WHITE BLOOD COUNT 8.2 K/uL (4.8-10.8)
[2016-06-21 14:39] LABS: CHLORIDE 106 mmol/L (98-107)
[2016-06-21 14:40] LABS: SODIUM 137 mmol/L (132-148)
[2016-06-21 14:42] LABS: GFR AFRICAN-AMERICAN > 60
[2016-06-21 14:43] LABS: ALB/GLOB RATIO 1.2 (1.0-2.1); ALKALINE PHOSPHATASE 133 U/L (38-126); ALT/SGPT 253 U/L (21-72); AST/SGOT 51 U/L (17-59); BILIRUBIN,TOTAL 0.2 mg/dL (0.2-1.3); BLOOD UREA NITROGEN 26 mg/dL (9-20); CALCIUM 8.2 mg/dl (8.6-10.4); CARBON DIOXIDE 20 mmol/L (22-30); GLUCOSE,RANDOM 71 mg/dL (75-110); PHOSPHOROUS 3.4 mg/dL (2.5-4.5); TOTAL PROTEIN 5.8 g/dL (6.3-8.3)
[2016-06-21 14:44] LABS: MAGNESIUM 2.1 mg/dL (1.6-2.3)
[2016-06-21 17:26] VITALS: RESP 20
--- NOTE | 2016-06-21 17:41 | CP.PCM.PN ---
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 today he has been receiving insulin/fluids and his labs are being followed closely. His glucose and lactate have normalized, the GAP is now closed at 15 and his insulin regimen has been decreased. On exam he only complains of nausea and slight tingling in his right finger. He denies headache, fever, chills, chest pain, or difficulty breathing. Objective - Vital Signs/Intake and Output Vital Signs (last 24 hours): Temp Pulse Resp BP Pulse Ox 98.0 F 68 20 113/70 98 06/21/16 17:25 06/21/16 17:25 06/21/16 17:25 06/21/16 17:25 06/21/16 17:25 Intake and Output: 06/21/16 06/21/16 06:59 18:59 Intake Total 4300 Output Total 300 500 Balance 4000 -500 - Medications Medications: Current Medications Aspirin (Aspirin Chewable) 81 mg PO DAILY [facility] Last Admin: 06/21/16 12:00 Dose: 81 mg Clopidogrel Bisulfate (Plavix) 75 mg PO DAILY [facility] Last Admin: 06/21/16 12:00 Dose: 75 mg Enoxaparin Sodium (Lovenox) 40 mg SC DAILY [facility] Last Admin: 06/21/16 12:00 Dose: 40 mg Famotidine (Pepcid) 20 mg PO BID [facility] Last Admin: 06/21/16 12:00 Dose: 20 mg Folic Acid (Folic Acid) 1 mg PO DAILY [facility] Last Admin: 06/21/16 12:00 Dose: 1 mg Sodium Chloride (Sodium Chloride 0.9%) 1,000 mls @ 150 mls/hr IV .Q6H40M [facility] Last Admin: 06/21/16 16:35 Dose: 150 mls/hr Insulin Detemir (Levemir) 20 unit SC DAILY [facility] Last Admin: 06/21/16 10:45 Dose: 20 unit Insulin Human Regular (Novolin R) 0 unit SC ACHS [facility] PRN Reason: Protocol Last Admin: 06/21/16 16:52 Dose: 4 unit Lisinopril (Zestril) 20 mg PO DAILY JERROD Rosuvastatin Calcium (Crestor) 2.5 mg PO HS JERROD - Labs Labs: 06/21/16 14:17 06/21/16 14:17 - Constitutional Appears: Non-toxic, No Acute Distress - Head Exam Head Exam: ATRAUMATIC - Eye Exam Eye Exam: EOMI - ENT Exam ENT Exam: Mucous Membranes Moist - Neck Exam Neck Exam: Full ROM. absent: Lymphadenopathy, Thyromegaly - Respiratory Exam Respiratory Exam: Clear to Ausculation Bilateral, NORMAL BREATHING PATTERN. absent: Rhonchi, Wheezes - Cardiovascular Exam Cardiovascular Exam: REGULAR RHYTHM, RRR, +S1, +S2. absent: JVD - GI/Abdominal Exam GI & Abdominal Exam: Soft. absent: Tenderness - Extremities Exam Extremities Exam: absent: Joint Swelling, Pedal Edema - Neurological Exam Neurological Exam: Alert, Awake, Oriented x3 - Psychiatric Exam Psychiatric exam: Normal Affect, Normal Mood - Skin Skin Exam: Dry, Intact, Normal Color, Warm Assessment and Plan - Assessment and Plan (Free Text) Plan: DM type 1 Glucose 758 on admission recent Lipid panel: TG 307, Chol 220, LDL 126, HDL 39 recent A1c: 12 recent Urine Microalbumin high at 38.[address] Leander Jerez Consistent carb diet Currently on Levemir 20u daily and ISS Novolog High Metabolic acidosis due to DKA Monitor sugars ABG pH 7.16, PO2 55L; 1am VBG ph 7.33, PO2 50; 6am Lactate 3 --> 1.9 Anion gap: 35 --> 21----> closed at 15 06/21 2pm Dehydration secondary to DKA BUN/Cr 33/1.5 NS@150cc/hr Urinary frequency U/A 3+ glucose; 2+ ketones Likely due to glucouria Monitor Transaminitis -elevated on prior admission -Hep panel negative -Abdominal U/S -suggestive of fatty infiltration vs. 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 Hx Hypertension BP 117/65 on admission started Lisinopril 20mg PO qd monitor vital signs Hx Anxiety Currently doing well, not medicated. prior: Ativan 0.5mg PO Q8H PRN Prophylaxis SCDs NS@150cc/hr Pepcid 20mg PO daily Lovenox 40mg SC daily
[2016-06-21] MEDS ORDERED: Rosuvastatin Calcium 2.5 mg Tab PO SCH (22:00)
[2016-06-22 01:13] VITALS: TEMP 97.5
[2016-06-22 06:24] LABS: ALB/GLOB RATIO 1.4 (1.0-2.1); ALKALINE PHOSPHATASE 133 U/L (38-126); ALT/SGPT 238 U/L (21-72); AST/SGOT 65 U/L (17-59); BILIRUBIN,TOTAL 0.2 mg/dL (0.2-1.3); BLOOD UREA NITROGEN 23 mg/dL (9-20); CALCIUM 8.2 mg/dl (8.6-10.4); CARBON DIOXIDE 22 mmol/L (22-30); CHLORIDE 102 mmol/L (98-107); GFR AFRICAN-AMERICAN > 60; GLUCOSE,RANDOM 263 mg/dL (75-110); POTASSIUM 4.4 mmol/L (3.6-5.2); SODIUM 135 mmol/L (132-148); TOTAL PROTEIN 5.9 g/dL (6.3-8.3)
[2016-06-22 06:39] LABS: HEMATOCRIT 30.9 % (35.0-51.0); MEAN CELL VOLUME 90.8 fL (80.0-94.0); MEAN CORPUSCULAR HEMOGLOBIN 30.5 pg (27.0-31.0); MEAN CORPUSCULAR HGB CONC 33.6 g/dL (33.0-37.0); RED CELL DISTRIBUTION WIDTH 13.1 % (11.5-14.5); WHITE BLOOD COUNT 5.6 K/uL (4.8-10.8)
[2016-06-22] MEDS: (Novolin R) Insulin Human Regular 100 units/ml vial SC SCH ×3 (08:00→17:37)
[2016-06-22 08:16] VITALS: BP 133/81; O2SAT 99
[2016-06-22] MEDS: Insulin Detemir 100 units/ml Vial (Levemir) SC SCH (09:27)
[2016-06-22] MEDS: Enoxaparin 40 mg Syringe SC SCH (09:33)
--- NOTE | 2016-06-22 10:52 | CP.PCM.PN ---
Subjective - Date & Time of Evaluation Date of Evaluation: 06/22/16 Time of Evaluation: 07:50 Objective - Vital Signs/Intake and Output Vital Signs (last 24 hours): Temp Pulse Resp BP Pulse Ox 97.5 F L 61 20 133/81 99 06/22/16 07:10 06/22/16 07:10 06/22/16 07:10 06/22/16 07:10 06/22/16 07:10 - Medications Medications: Current Medications Aspirin (Aspirin Chewable) 81 mg PO DAILY [facility] Last Admin: 06/22/16 09:26 Dose: 81 mg Clopidogrel Bisulfate (Plavix) 75 mg PO DAILY [facility] Last Admin: 06/22/16 09:34 Dose: 75 mg Enoxaparin Sodium (Lovenox) 40 mg SC DAILY [facility] Last Admin: 06/22/16 09:33 Dose: 40 mg Famotidine (Pepcid) 20 mg PO BID [facility] Last Admin: 06/21/16 17:49 Dose: 20 mg Folic Acid (Folic Acid) 1 mg PO DAILY [facility] Last Admin: 06/22/16 09:34 Dose: 1 mg Sodium Chloride (Sodium Chloride 0.9%) 1,000 mls @ 150 mls/hr IV .Q6H40M [facility] Last Admin: 06/21/16 22:00 Dose: 150 mls/hr Insulin Detemir (Levemir) 20 unit SC DAILY [facility] Last Admin: 06/22/16 09:27 Dose: 20 unit Insulin Human Regular (Novolin R) 0 unit SC ACHS [facility] PRN Reason: Protocol Last Admin: 06/22/16 08:00 Dose: 4 unit Lisinopril (Zestril) 20 mg PO DAILY [facility] Last Admin: 06/22/16 09:34 Dose: 20 mg Rosuvastatin Calcium (Crestor) 2.5 mg PO HS [facility] - Labs Labs: 06/22/16 06:30 06/22/16 06:48 - Constitutional Appears: Non-toxic, No Acute Distress - Head Exam Head Exam: ATRAUMATIC, NORMOCEPHALIC - Eye Exam Eye Exam: EOMI - ENT Exam ENT Exam: Mucous Membranes Moist - Neck Exam Neck Exam: Full ROM - Respiratory Exam Respiratory Exam: Clear to Ausculation Bilateral, NORMAL BREATHING PATTERN. absent: Wheezes - Cardiovascular Exam Cardiovascular Exam: REGULAR RHYTHM, RRR, +S1, +S2. absent: JVD - GI/Abdominal Exam GI & Abdominal Exam: Soft, Normal Bowel Sounds. absent: Tenderness - Extremities Exam Extremities Exam: absent: Joint Swelling, Tenderness - Neurological Exam Neuro motor strength exam: Left Upper Extremity: 0, Right Upper Extremity: 5, Left Lower Extremity: 5 (decrease ROM), Right Lower Extremity: 5 - Psychiatric Exam Psychiatric exam: Normal Affect, Normal Mood - Skin Skin Exam: Dry, Intact, Normal Color, Warm
[2016-06-22] MEDS: Sodium Chloride 0.9% 1,000 ML IV SCH (13:09)
[2016-06-22 16:34] VITALS: PULSE 80
--- NOTE | 2016-06-22 17:59 | CP.PCM.DIS ---
<Faizan Slade - Last Filed: 06/22/16 22:12> Provider - Provider Date of Admission: 06/21/16 02:14 Attending physician: Mervin Matos MD Time Spent in preparation of Discharge (in minutes): 35 Diagnosis - Discharge Diagnosis (1) Diabetic ketoacidosis Status: Acute (2) Diabetes type 1, uncontrolled Status: Chronic (5) History of CVA with residual deficit Status: Chronic (6) Anxiety Status: Acute Hospital Course - Lab Results Lab Results: Most Recent Lab Values WBC 5.6 K/uL (4.8-10.8) 06/22/16 06:30 RBC 3.41 Mil/uL (4.40-5.90) L 06/22/16 06:30 Hgb 10.4 g/dL (12.0-18.0) L 06/22/16 06:30 Hct 30.9 % (35.0-51.0) L 06/22/16 06:30 MCV 90.8 fL (80.0-94.0) 06/22/16 06:30 MCH 30.5 pg (27.0-31.0) 06/22/16 06:30 MCHC 33.6 g/dL (33.0-37.0) 06/22/16 06:30 RDW 13.1 % (11.5-14.5) 06/22/16 06:30 Plt Count 368 K/uL (130-400) 06/22/16 06:30 MPV 7.0 fL (7.2-11.7) L 06/22/16 06:30 Neut % (Auto) 66.9 % (50.0-75.0) 06/21/16 14:17 Lymph % (Auto) 22.2 % (20.0-40.0) 06/21/16 14:17 [place] % (Auto) 6.9 % (0.0-10.0) 06/21/16 14:17 Eos % (Auto) 3.8 % (0.0-4.0) 06/21/16 14:17 Baso % (Auto) 0.2 % (0.0-2.0) 06/21/16 14:17 Neut # 5.5 K/uL (1.8-7.0) 06/21/16 14:17 Lymph # 1.8 K/uL (1.0-4.3) 06/21/16 14:17 [place] # 0.6 K/uL (0.0-0.8) 06/21/16 14:17 Eos # 0.3 K/uL (0.0-0.7) 06/21/16 14:17 Baso # 0.0 K/uL (0.0-0.2) 06/21/16 14:17 Neutrophils % (Manual) 85 % (50-75) H 06/21/16 01:00 Band Neutrophils % 1 % (0-2) 06/21/16 01:00 Lymphocytes % (Manual) 8 % (20-40) L 06/21/16 01:00 Monocytes % (Manual) 6 % (0-10) 06/21/16 01:00 Platelet Estimate Normal (NORMAL) 06/21/16 01:00 Puncture Site Drawn by rn 06/21/16 01:00 pCO2 24 mm/Hg (35-45) L 06/21/16 01:00 pO2 50 mm/Hg (30-55) 06/21/16 06:20 HCO3 10.0 mmol/L (21-28) L 06/21/16 01:00 ABG pH 7.16 (7.35-7.45) L* 06/21/16 01:00 ABG Total CO2 9.3 mmol/L (22-28) L 06/21/16 01:00 ABG O2 Saturation 88.4 % (95-98) L 06/21/16 01:00 ABG Base Excess -18.4 mmol/L (-2.0-3.0) L 06/21/16 01:00 Geoff Test Na 06/21/16 01:00 ABG Potassium 5.5 mmol/L (3.6-5.2) H 06/21/16 01:00 VBG pH 7.33 (7.32-7.43) 06/21/16 06:20 VBG pCO2 37 mmHg (40-60) L 06/21/16 06:20 VBG HCO3 20.0 mmol/L 06/21/16 06:20 VBG Total CO2 20.6 mmol/L (22-28) L 06/21/16 06:20 VBG O2 Sat (Calc) 91.5 % (40-65) H 06/21/16 06:20 VBG Base Excess -5.8 mmol/L (0.0-2.0) L 06/21/16 06:20 VBG Potassium 4.1 mmol/L (3.6-5.2) 06/21/16 06:20 A-a O2 Difference 65.0 mm/Hg 06/21/16 01:00 Respiratory Index 1.2 06/21/16 01:00 Sodium 134.0 mmol/l (132-148) 06/21/16 06:20 Chloride 108.0 mmol/L (98-107) H 06/21/16 06:20 Glucose 264 mg/dl (75-110) H 06/21/16 06:20 Lactate 1.9 mmol/L (0.7-2.1) 06/21/16 06:20 FiO2 21.0 % 06/21/16 01:00 Crit Value Called To Dr estrella/er 06/21/16 01:00 Crit Value Called By Chandu hoskins/rt 06/21/16 01:00 Crit Value Read Back Y 06/21/16 01:00 Blood Gas Notified Time 110 06/21/16 01:00 Sodium 135 mmol/L (132-148) 06/22/16 06:48 Potassium 4.4 mmol/L (3.6-5.2) 06/22/16 06:48 Chloride 102 mmol/L (98-107) 06/22/16 06:48 Carbon Dioxide 22 mmol/L (22-30) 06/22/16 06:48 Anion Gap 15 (10-20) 06/22/16 06:48 BUN 23 mg/dL (9-20) H 06/22/16 06:48 Creatinine 1.1 MG/DL (0.8-1.5) 06/22/16 06:48 Est GFR ( Amer) > 60 06/22/16 06:48 Est GFR (Non-Af Amer) > 60 06/22/16 06:48 POC Glucose (mg/dL) 257 mg/dL (65-110) H 06/22/16 17:24 Random Glucose 263 mg/dL (75-110) H 06/22/16 06:48 Calcium 8.2 mg/dl (8.6-10.4) L 06/22/16 06:48 Phosphorus 3.4 mg/dL (2.5-4.5) 06/21/16 14:17 Magnesium 2.1 mg/dL (1.6-2.3) 06/21/16 14:17 Total Bilirubin 0.2 mg/dL (0.2-1.3) 06/22/16 06:48 AST 65 U/L (17-59) H D 06/22/16 06:48 ALT 238 U/L (21-72) H 06/22/16 06:48 Alkaline Phosphatase 133 U/L (38-126) H 06/22/16 06:48 Total Creatine Kinase 130 U/L (55-170) 06/21/16 06:03 Troponin I < 0.0120 ng/mL (0.00-0.120) 06/21/16 06:03 Total Protein 5.9 g/dL (6.3-8.3) L 06/22/16 06:48 Albumin 3.4 g/dL (3.5-5.0) L 06/22/16 06:48 Globulin 2.5 gm/dL (2.2-3.9) 06/22/16 06:48 Albumin/Globulin Ratio 1.4 (1.0-2.1) 06/22/16 06:48 Arterial Blood Potassium 5.5 mmol/L (3.6-5.2) H 06/21/16 01:00 Venous Blood Potassium 4.1 mmol/L (3.6-5.2) 06/21/16 06:20 Urine Color Yellow (YELLOW) 06/21/16 06:14 Urine Clarity Clear (Clear) 06/21/16 06:14 Urine pH 5.0 (5.0-8.0) 06/21/16 06:14 Ur Specific [place] 1.022 (1.003-1.030) 06/21/16 06:14 Urine Protein Negative mg/dL (NEGATIVE) 06/21/16 06:14 Urine Glucose (UA) 3+ mg/dL (Normal) H 06/21/16 06:14 Urine Ketones 2+ mg/dL (NEGATIVE) H 06/21/16 06:14 Urine Blood Negative (NEGATIVE) 06/21/16 06:14 Urine Nitrate Negative (NEGATIVE) 06/21/16 06:14 Urine Bilirubin Negative (NEGATIVE) 06/21/16 06:14 Urine Urobilinogen Normal mg/dL (0.2-1.0) 06/21/16 06:14 Ur Leukocyte Esterase Neg Lottie/uL (Negative) 06/21/16 06:14 Urine WBC (Auto) 1 /hpf (0-5) 06/21/16 06:14 Urine Opiates Screen Negative (NEGATIVE) 06/21/16 06:14 Urine Methadone Screen Negative (NEGATIVE) 06/21/16 06:14 Ur Barbiturates Screen Negative (NEGATIVE) 06/21/16 06:14 Ur Phencyclidine Scrn Negative (NEGATIVE) 06/21/16 06:14 Ur Amphetamines Screen Negative (NEGATIVE) 06/21/16 06:14 U Benzodiazepines Scrn Negative (NEGATIVE) 06/21/16 06:14 U Oth Cocaine Metabols Negative (NEGATIVE) 06/21/16 06:14 U Cannabinoids Screen Negative (NEGATIVE) 06/21/16 06:14 Alcohol, Quantitative < 10 mg/dl (0-10) 06/21/16 06:03 Serum Ketones Moderate (NEGATIVE) 06/21/16 01:00 Hepatitis A IgM Ab Negative (NEGATIVE) 06/21/16 14:17 Hep Bs Antigen Negative (NEGATIVE) 06/21/16 14:17 Hep B Core IgM Ab Negative (NEGATIVE) 06/21/16 14:17 Hepatitis C Antibody Negative (NEGATIVE) 06/21/16 14:17 - Hospital Course Hospital Course: 50M w/PMHx of CAD s/p ME (04/2016), DM Type 1, HTN, hemorrhagic CVA presented c/ o elevated blood sugar, polyuria, and polydipsia for the past several days. He was treated with fluids and started on an insulin drip until his anion GAP and lactate levels improved. Endocrinology was consulted. He was eventually taken off the drip and started on Levemir and Novolog sliding scale. His anion gap eventually closed and the pt's symptoms improved. It was also found that he had elevated liver enzymes. A hepatitis panel was ordered which was negative and an Abdominal Ultrasound was ordered, which was suggestive of fatty infiltration vs hepatic parenchymal disease. His LFT's trended down and he was advised to follow up with his primary care within a week to recheck his labs. Pt. was medically stable to be discharged home. This is a brief account of his stay. For a complete record of the events, please refer to his chart. - Date & Time of H&P Date of H&P: 06/22/16 Time of H&P: 07:50 Discharge Exam - Head Exam Head Exam: ATRAUMATIC, NORMOCEPHALIC - Eye Exam Eye Exam: EOMI, Normal appearance - ENT Exam ENT Exam: Mucous Membranes Moist - Neck Exam Neck exam: Full Rom - Respiratory Exam Respiratory Exam: Clear to PA & Lateral, NORMAL BREATHING PATTERN, UNREMARKABLE. absent: Wheezes - GI/Abdominal Exam GI & Abdominal Exam: Normal Bowel Sounds, Soft, Unremarkable. absent: Tenderness - Neurological Exam Neurological exam: Alert, Oriented x3 - Psychiatric Exam Psychiatric exam: Normal Affect, Normal Mood - Skin Skin Exam: Dry, Intact, Normal Color, Warm Discharge Plan - Discharge Medications Prescriptions: Clopidogrel [Plavix] 75 mg PO DAILY #30 - Follow Up Plan Condition: FAIR Disposition: HOME/ ROUTINE Instructions: Lisinopril (By mouth), Clopidogrel (By mouth), Insulin Aspart, Recombinant (By injection), Duloxetine (By mouth), Insulin Glargine (By injection), Diabetic Foot Care (DC), Diabetes Mellitus Type 1 in Adults (DC), Basic Carbohydrate Counting (DC), Meal Planning with the Plate Method (DC), Meal Planning with Diabetes Exchanges (DC) Additional Instructions: Pt. is medically stable for discharge. Pt. has been given the following prescriptions to manage his care. Insulin Novolog 20u before each meals (2 vials) Insulin Lantus 24u at night (1 vial) Plavix 75mg by mouth once daily Cymbalta 20mg by mouth once daily Lisinopril 20mg by mouth once daily Advised to hold his simvastatin 10mg daily due to increased liver function tests Advised to hold his metoprolol 25mg due to his stable blood pressure Please follow up with your primary care within 1 week for repeat blood work to check your liver enzymes Pt. advised that since he is a , he should entertain all of his options for his future medical care. <Maranda Parker V - Last Filed: 09/27/16 22:18> Provider - Provider Date of Admission: 06/21/16 02:14 Attending physician: Mervin Matos MD Hospital Course - Lab Results Lab Results: Most Recent Lab Values WBC 5.6 K/uL (4.8-10.8) 06/22/16 06:30 RBC 3.41 Mil/uL (4.40-5.90) L 06/22/16 06:30 Hgb 10.4 g/dL (12.0-18.0) L 06/22/16 06:30 Hct 30.9 % (35.0-51.0) L 06/22/16 06:30 MCV 90.8 fL (80.0-94.0) 06/22/16 06:30 MCH 30.5 pg (27.0-31.0) 06/22/16 06:30 MCHC 33.6 g/dL (33.0-37.0) 06/22/16 06:30 RDW 13.1 % (11.5-14.5) 06/22/16 06:30 Plt Count 368 K/uL (130-400) 06/22/16 06:30 MPV 7.0 fL (7.2-11.7) L 06/22/16 06:30 Neut % (Auto) 66.9 % (50.0-75.0) 06/21/16 14:17 Lymph % (Auto) 22.2 % (20.0-40.0) 06/21/16 14:17 [place] % (Auto) 6.9 % (0.0-10.0) 06/21/16 14:17 Eos % (Auto) 3.8 % (0.0-4.0) 06/21/16 14:17 Baso % (Auto) 0.2 % (0.0-2.0) 06/21/16 14:17 Neut # 5.5 K/uL (1.8-7.0) 06/21/16 14:17 Lymph # 1.8 K/uL (1.0-4.3) 06/21/16 14:17 [place] # 0.6 K/uL (0.0-0.8) 06/21/16 14:17 Eos # 0.3 K/uL (0.0-0.7) 06/21/16 14:17 Baso # 0.0 K/uL (0.0-0.2) 06/21/16 14:17 Neutrophils % (Manual) 85 % (50-75) H 06/21/16 01:00 Band Neutrophils % 1 % (0-2) 06/21/16 01:00 Lymphocytes % (Manual) 8 % (20-40) L 06/21/16 01:00 Monocytes % (Manual) 6 % (0-10) 06/21/16 01:00 Platelet Estimate Normal (NORMAL) 06/21/16 01:00 Puncture Site Drawn by rn 06/21/16 01:00 pCO2 24 mm/Hg (35-45) L 06/21/16 01:00 pO2 50 mm/Hg (30-55) 06/21/16 06:20 HCO3 10.0 mmol/L (21-28) L 06/21/16 01:00 ABG pH 7.16 (7.35-7.45) L* 06/21/16 01:00 ABG Total CO2 9.3 mmol/L (22-28) L 06/21/16 01:00 ABG O2 Saturation 88.4 % (95-98) L 06/21/16 01:00 ABG Base Excess -18.4 mmol/L (-2.0-3.0) L 06/21/16 01:00 Geoff Test Na 06/21/16 01:00 ABG Potassium 5.5 mmol/L (3.6-5.2) H 06/21/16 01:00 VBG pH 7.33 (7.32-7.43) 06/21/16 06:20 VBG pCO2 37 mmHg (40-60) L 06/21/16 06:20 VBG HCO3 20.0 mmol/L 06/21/16 06:20 VBG Total CO2 20.6 mmol/L (22-28) L 06/21/16 06:20 VBG O2 Sat (Calc) 91.5 % (40-65) H 06/21/16 06:20 VBG Base Excess -5.8 mmol/L (0.0-2.0) L 06/21/16 06:20 VBG Potassium 4.1 mmol/L (3.6-5.2) 06/21/16 06:20 A-a O2 Difference 65.0 mm/Hg 06/21/16 01:00 Respiratory Index 1.2 06/21/16 01:00 Sodium 134.0 mmol/l (132-148) 06/21/16 06:20 Chloride 108.0 mmol/L (98-107) H 06/21/16 06:20 Glucose 264 mg/dl (75-110) H 06/21/16 06:20 Lactate 1.9 mmol/L (0.7-2.1) 06/21/16 06:20 FiO2 21.0 % 06/21/16 01:00 Crit Value Called To Dr estrella/er 06/21/16 01:00 Crit Value Called By Chandu hoskins/rt 06/21/16 01:00 Crit Value Read Back Y 06/21/16 01:00 Blood Gas Notified Time 110 06/21/16 01:00 Sodium 135 mmol/L (132-148) 06/22/16 06:48 Potassium 4.4 mmol/L (3.6-5.2) 06/22/16 06:48 Chloride 102 mmol/L (98-107) 06/22/16 06:48 Carbon Dioxide 22 mmol/L (22-30) 06/22/16 06:48 Anion Gap 15 (10-20) 06/22/16 06:48 BUN 23 mg/dL (9-20) H 06/22/16 06:48 Creatinine 1.1 MG/DL (0.8-1.5) 06/22/16 06:48 Est GFR ( Amer) > 60 06/22/16 06:48 Est GFR (Non-Af Amer) > 60 06/22/16 06:48 POC Glucose (mg/dL) 285 mg/dL (65-110) H 06/22/16 19:58 Random Glucose 263 mg/dL (75-110) H 06/22/16 06:48 Calcium 8.2 mg/dl (8.6-10.4) L 06/22/16 06:48 Phosphorus 3.4 mg/dL (2.5-4.5) 06/21/16 14:17 Magnesium 2.1 mg/dL (1.6-2.3) 06/21/16 14:17 Total Bilirubin 0.2 mg/dL (0.2-1.3) 06/22/16 06:48 AST 65 U/L (17-59) H D 06/22/16 06:48 ALT 238 U/L (21-72) H 06/22/16 06:48 Alkaline Phosphatase 133 U/L (38-126) H 06/22/16 06:48 Total Creatine Kinase 130 U/L (55-170) 06/21/16 06:03 Troponin I < 0.0120 ng/mL (0.00-0.120) 06/21/16 06:03 Total Protein 5.9 g/dL (6.3-8.3) L 06/22/16 06:48 Albumin 3.4 g/dL (3.5-5.0) L 06/22/16 06:48 Globulin 2.5 gm/dL (2.2-3.9) 06/22/16 06:48 Albumin/Globulin Ratio 1.4 (1.0-2.1) 06/22/16 06:48 Arterial Blood Potassium 5.5 mmol/L (3.6-5.2) H 06/21/16 01:00 Venous Blood Potassium 4.1 mmol/L (3.6-5.2) 06/21/16 06:20 Urine Color Yellow (YELLOW) 06/21/16 06:14 Urine Clarity Clear (Clear) 06/21/16 06:14 Urine pH 5.0 (5.0-8.0) 06/21/16 06:14 Ur Specific [place] 1.022 (1.003-1.030) 06/21/16 06:14 Urine Protein Negative mg/dL (NEGATIVE) 06/21/16 06:14 Urine Glucose (UA) 3+ mg/dL (Normal) H 06/21/16 06:14 Urine Ketones 2+ mg/dL (NEGATIVE) H 06/21/16 06:14 Urine Blood Negative (NEGATIVE) 06/21/16 06:14 Urine Nitrate Negative (NEGATIVE) 06/21/16 06:14 Urine Bilirubin Negative (NEGATIVE) 06/21/16 06:14 Urine Urobilinogen Normal mg/dL (0.2-1.0) 06/21/16 06:14 Ur Leukocyte Esterase Neg Lottie/uL (Negative) 06/21/16 06:14 Urine WBC (Auto) 1 /hpf (0-5) 06/21/16 06:14 Urine Opiates Screen Negative (NEGATIVE) 06/21/16 06:14 Urine Methadone Screen Negative (NEGATIVE) 06/21/16 06:14 Ur Barbiturates Screen Negative (NEGATIVE) 06/21/16 06:14 Ur Phencyclidine Scrn Negative (NEGATIVE) 06/21/16 06:14 Ur Amphetamines Screen Negative (NEGATIVE) 06/21/16 06:14 U Benzodiazepines Scrn Negative (NEGATIVE) 06/21/16 06:14 U Oth Cocaine Metabols Negative (NEGATIVE) 06/21/16 06:14 U Cannabinoids Screen Negative (NEGATIVE) 06/21/16 06:14 Alcohol, Quantitative < 10 mg/dl (0-10) 06/21/16 06:03 Serum Ketones Moderate (NEGATIVE) 06/21/16 01:00 Hepatitis A IgM Ab Negative (NEGATIVE) 06/21/16 14:17 Hep Bs Antigen Negative (NEGATIVE) 06/21/16 14:17 Hep B Core IgM Ab Negative (NEGATIVE) 06/21/16 14:17 Hepatitis C Antibody Negative (NEGATIVE) 06/21/16 14:17 Attending/Attestation - Attestation I have personally seen and examined this patient.: Yes I have fully participated in the care of the patient.: Yes I have reviewed all pertinent clinical information, including history, physical exam and plan: Yes Notes (Text): This is late computer entry for 06/22/16. Patient seen, examined, and case discussed with day-time resident. Patient is medically stable for discharge. Discussed discharge order and discussed instructions with both day-time resident and patient at bedside. Pt. has been given the following prescriptions to manage his care. Insulin Novolog 20u before each meals (2 vials) Insulin Lantus 24u at night (1 vial) Plavix 75mg by mouth once daily Cymbalta 20mg by mouth once daily Lisinopril 20mg by mouth once daily Advised to hold his simvastatin 10mg daily due to increased liver function tests Advised to hold his metoprolol 25mg due to his stable blood pressure Please follow up with your primary care within 1 week for repeat blood work to check your liver enzymes Pt. advised that since he is a , he should entertain all of his options for his future medical care. Patient refuses to apply for his benefits at this time. This is a summary of patient's hospitalization. Please see EMR for further details.
== END 2016-06-22 21:33 | disposition home or self-care (01) | DRG 294 ==
LOC: C.ER 23:52 → MERGE 06-21 02:14 → C.9E 06-21 02:14 → C.6T 06-21 15:45
PROVIDERS: ADMIT Internal Medicine; ATTEND Internal Medicine
DX: E10.10 Type 1 diabetes mellitus with ketoacidosis without coma (principal); I69.354 Hemiplegia and hemiparesis following cerebral infarction affecting left non-dominant side; I10 Essential (primary) hypertension; E86.0 Dehydration; Z96.41 Presence of insulin pump (external) (internal); F41.9 Anxiety disorder, unspecified; Z59.0 Homelessness; I25.10 Atherosclerotic heart disease of native coronary artery without angina pectoris; Z95.5 Presence of coronary angioplasty implant and graft; Z91.14 Patient's other noncompliance with medication regimen; R35.0 Frequency of micturition; R74.0 Nonspecific elevation of levels of transaminase and lactic acid dehydrogenase [LDH]; E78.00 Pure hypercholesterolemia, unspecified

== ENCOUNTER 2016-06-29 05:56 | Inpatient (IN) | payer OTHER ==
[2016-06-29] MEDS ORDERED: Sodium Chloride 0.9% 1,000 ML IV ONE (06:17)
--- NOTE | 2016-06-29 06:17 | C.PDOC ---
History Of Present Illness 50y/o with h/o o IDDM BIBEMS, CVA with left hemiparesis with c/o of several episodes of vomiting and diarrhea since yesterday. Patient otherwise denies fever, chills, abdominal pain, chest pain, SOB, or other associated symptoms. Chief Complaint (Nursing): Abnormal Labs History Per: Patient History/Exam Limitations: no limitations Onset/Duration Of Symptoms: Days Current Symptoms Are (Timing): Still Present Recent travel outside of the [place]: No Past Medical History Reviewed: Historical Data, Nursing Documentation, Vital Signs Vital Signs: Last Vital Signs Temp 98.3 F 06/29/16 06:26 Pulse 121 H 06/29/16 06:26 Resp 20 06/29/16 06:26 BP 130/60 06/29/16 06:26 Pulse Ox 97 06/29/16 06:34 - Medical History PMH: Anxiety, Diabetes, HTN Surgical History: Appendectomy Family History: States: Unknown Family Hx - Social History Hx Alcohol Use: No Hx Substance Use: No - Immunization History Hx Tetanus Toxoid Vaccination: No Hx Influenza Vaccination: No Hx Pneumococcal Vaccination: No Review Of Systems Except As Marked, All Systems Reviewed And Found Negative. Constitutional: Negative for: Fever, Chills Cardiovascular: Negative for: Chest Pain Respiratory: Negative for: Cough, Shortness of Breath Gastrointestinal: Positive for: Vomiting, Diarrhea. Negative for: Abdominal Pain Skin: Negative for: Rash Neurological: Negative for: Headache Physical Exam - Physical Exam Appears: Non-toxic, No Acute Distress Skin: Normal Color, Warm, Dry Head: Atraumatic, Normacephalic Oral Mucosa: Dry Chest: Symmetrical Cardiovascular: Rhythm Regular Respiratory: Normal Breath Sounds, No Rales, No Rhonchi, No Wheezing Gastrointestinal/Abdominal: Soft, No Tenderness, No Guarding, No Rebound Back: Normal Inspection Extremity: Normal ROM, Capillary Refill (< 2 sec. ) Neurological/Psych: Oriented x3, Normal Speech, Normal Cognition ED Course And Treatment O2 Sat by Pulse Oximetry: 97 (RA) Pulse Ox Interpretation: Normal Progress Note: Treated with Pepcid, Zofran, and IVFs. Labs ordered and reviewed. On reassessment, patient is resting comfortably, and is in no acute distress. Patient instructed to follow up with clinic/PMD within 1-2 days. Disposition - Disposition Disposition Time: 06:42 Condition: STABLE - Clinical Impression Clinical Impression: Vomiting and diarrhea - PA / SOCIAL AND POLITICAL STUDIES PROFESSOR / Resident Statement MD/DO has reviewed & agrees with the documentation as recorded. - Scribe Statement The provider has reviewed the documentation as recorded by the Eduardoibsofia Montgomery All medical record entries made by the Augusto were at my direction and personally dictated by me. I have reviewed the chart and agree that the record accurately reflects my personal performance of the history, physical exam, medical decision making, and the department course for this patient. I have also personally directed, reviewed, and agree with the discharge instructions and disposition. Physician Patient Turnover Patient Signed Over To: Joanna Rodriguez Handoff Comments: Pending labs and reeval
[2016-06-29] MEDS ORDERED: Sodium Chloride 0.9% 1,000 ML ONE ×3 (06:26→10:24)
[2016-06-29 07:38] LABS: BASO # 0.1 K/uL (0.0-0.2); BASO % 0.7 % (0.0-2.0); HEMATOCRIT 37.8 % (35.0-51.0); LYMPH # 0.6 K/uL (1.0-4.3); LYMPH % 3.7 % (20.0-40.0); MEAN CORPUSCULAR HEMOGLOBIN 30.9 pg (27.0-31.0); MEAN CORPUSCULAR HGB CONC 30.3 g/dL (33.0-37.0); MEAN PLATELET VOLUME 8.1 fL (7.2-11.7); MONO # 0.6 K/uL (0.0-0.8); NRBC % 0.1 % (0.0-2.0); PLATELET COUNT 427 K/uL (130-400); RED CELL DISTRIBUTION WIDTH 14.2 % (11.5-14.5); WHITE BLOOD COUNT 15.7 K/uL (4.8-10.8)
[2016-06-29 07:39] LABS: CHLORIDE 85 mmol/L (98-107); SODIUM 123 mmol/L (132-148)
[2016-06-29 07:41] LABS: GFR AFRICAN-AMERICAN 49
[2016-06-29 07:42] LABS: ALB/GLOB RATIO 1.7 (1.0-2.1); ALKALINE PHOSPHATASE 166 U/L (38-126); ALT/SGPT 324 U/L (21-72); AST/SGOT 79 U/L (17-59); BILIRUBIN,TOTAL 0.8 mg/dL (0.2-1.3); BLOOD UREA NITROGEN 37 mg/dL (9-20); CALCIUM 7.8 mg/dl (8.6-10.4); TOTAL PROTEIN 6.7 g/dL (6.3-8.3)
[2016-06-29 07:54] LABS: VENOUS BLOOD GAS BASE EXCESS -24.7 mmol/L (0.0-2.0); VENOUS BLOOD GAS PCO2 21 mmHg (40-60)
[2016-06-29] MEDS ORDERED: (Novolin R) Insulin Human Regular 100 units/ml vial IV STA ×2 (07:59)
[2016-06-29] MEDS ORDERED: Insulin Human Regular 100 UNIT in Sodium Chloride 0.9% 99 ML IV STA (07:59)
[2016-06-29] MEDS ORDERED: Sodium Chloride 0.9% 1,000 ML IV STA ×2 (07:59→08:45)
[2016-06-29 08:01] LABS: CARBON DIOXIDE < 5 mmol/L (22-30); POTASSIUM 7.6 mmol/L (3.6-5.2)
[2016-06-29 08:03] LABS: GLUCOSE,RANDOM 1147 mg/dL (75-110)
[2016-06-29] MEDS ORDERED: (Novolog) Insulin Aspart, Recombinant 100 u/ml 10 ml vial ONE (08:09)
[2016-06-29] MEDS ORDERED: Calcium Gluconate 4.65 mEq/10 ml Inj IVP STA ×2 (08:14→08:39)
[2016-06-29 08:24] LABS: RBC URINE < 1 /hpf (0-3); URINE BILIRUBIN NEGATIVE (NEGATIVE); URINE BLOOD NEGATIVE (NEGATIVE); URINE COLOR Straw (YELLOW); URINE GLUCOSE (UA) 3+ mg/dL (Normal); URINE KETONE 2+ mg/dL (NEGATIVE); URINE LEUKOCYTE ESTERASE NEG Leu/uL (Negative); URINE PROTEIN NEGATIVE (NEGATIVE); URINE UROBILINOGEN NORMAL mg/dL (0.2-1.0); WBC URINE 1 /hpf (0-5)
[2016-06-29] MEDS ORDERED: Calcium Gluconate 4.65 mEq/10 ml Inj ONE ×2 (08:25→08:51)
[2016-06-29 08:32] LABS: NEUTROPHIL 88 % (50-75); TOTAL CELLS COUNTED 100
[2016-06-29 08:33] LABS: LARGE PLATELETS PRESENT
[2016-06-29] MEDS ORDERED: Sodium Bicarbonate (8.4%) 50 Meq Syringe IVP STA (08:37)
[2016-06-29] MEDS ORDERED: Sod Polystyrene Sulf 15 gm/60 ml Oral Susp PO STA (08:39)
[2016-06-29] MEDS ORDERED: Sodium Bicarbonate (8.4%) 50 Meq Syringe ONE (08:47)
--- NOTE | 2016-06-29 08:57 | RAD ---
PROCEDURE: CHEST RADIOGRAPH, 1 VIEW HISTORY: Diabetic ketoacidosis COMPARISON: None available. FINDINGS: LUNGS: No focal infiltrate or effusion. Mild right hilar prominence. PLEURA: No pneumothorax or pleural fluid seen. CARDIOVASCULAR: Normal. OSSEOUS STRUCTURES: No significant abnormalities. VISUALIZED UPPER ABDOMEN: Normal. OTHER FINDINGS: None. IMPRESSION: No focal infiltrate or effusion. Mild right hilar prominence.
[2016-06-29 10:00] LABS: VENOUS BLOOD GAS BASE EXCESS -21.7 mmol/L (0.0-2.0); VENOUS BLOOD GAS PCO2 21 mmHg (40-60); VENOUS BLOOD PH 7.09 (7.32-7.43)
[2016-06-29] MEDS ORDERED: Sodium Chloride 0.9% 1,000 ML IV SCH (10:15)
[2016-06-29] MEDS ORDERED: Insulin Human Regular 100 UNIT in Sodium Chloride 0.9% 99 ML IV SCH ×2 (10:20→20:40)
[2016-06-29 10:40] LABS: ARTERIAL BLOOD HGB O2 SAT 96.3 % (95.0-98.0); CARBOXYHEMOGLOBIN 1.5 % (0.5-1.5); DRAW SITE RB; METHEMOGLOBIN 1.2 % (0.0-3.0)
[2016-06-29] MEDS ORDERED: Albuterol-Ipratrop 3 mg / 0.5 (3 ml) UD ONE (11:22)
[2016-06-29 11:41] LABS: BASO # 0.1 K/uL (0.0-0.2); BASO % 0.3 % (0.0-2.0); HEMATOCRIT 30.3 % (35.0-51.0); LYMPH # 0.7 K/uL (1.0-4.3); LYMPH % 3.6 % (20.0-40.0); MEAN CORPUSCULAR HEMOGLOBIN 30.2 pg (27.0-31.0); MEAN PLATELET VOLUME 7.7 fL (7.2-11.7); MONO # 1.2 K/uL (0.0-0.8); MONO % 6.2 % (0.0-10.0); PLATELET COUNT 387 K/uL (130-400); RED CELL DISTRIBUTION WIDTH 12.9 % (11.5-14.5); WHITE BLOOD COUNT 19.1 K/uL (4.8-10.8)
[2016-06-29 11:44] LABS: MEAN CELL VOLUME 94.3 fL (80.0-94.0)
[2016-06-29 11:45] LABS: POTASSIUM 5.2 mmol/L (3.6-5.2)
[2016-06-29 11:48] LABS: PHOSPHOROUS 5.9 mg/dL (2.5-4.5)
[2016-06-29 12:45] LABS: TOTAL CELLS COUNTED 100
[2016-06-29 12:46] LABS: NEUTROPHIL 92 % (50-75)
[2016-06-29 13:55] LABS: CALCIUM 8.5 mg/dl (8.6-10.4); MAGNESIUM 2.4 mg/dL (1.6-2.3)
--- NOTE | 2016-06-29 15:02 | CP.CCUPN ---
Addendum entered and electronically signed by Sridevi Coulter DO 06/29/16 18:23 : Last sugars 370, 170. Anion Gap = 19 @ 4pm. Patient started on D5 1/2 @ 175cc/hr , started diabetic diet, accuchecks Q2H, and BMP Q4H. Original Note: <Sridevi Coulter - Last Filed: 06/29/16 16:26> CCU Subjective - Physician Review Subjective (Free Text): Critical Care Consult Note HPI: 50M with PMHx of DM type 1 presented to the ED complaining of nausea, vomiting, and diarrhea x 1 day. Patient has history of uncontrolled IDDM, he is noncompliant with his medications. This is the 3rd admission for DKA within 1 month, last admission being on 06/21/16. On exam patient is lethargic, severely dehydrated, tachycardiac, with residual left sided hemiparesis with left foot in a plastic brace. Patient was given 3 liters of NS in ED, started on insulin drip, calcium gluconate, and bicarb. 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, chronic migraines/headache, Left eye vision changes PSHx: Cath (04/2016 at [place]) w/1 vessel disease, Appendectomy Meds: As per APR ALL: NKDA SHx: Social ETOH use #1-2 drinks/3 mos, denies tobacco/illicit drug use; pt recently jailed x 22 days from 04/16-05/07/2016 FHx: Unremarkable PMD: Chiara Marrufo CCU Objective - Vital Signs / Intake & Output Vital Signs (Last 4 hours): Vital Signs Temp Pulse Pulse Resp BP Pulse Ox 06/29/16 14:05 88 06/29/16 14:00 89 20 103/59 L 99 06/29/16 13:00 98.4 F 98 H 20 93/52 L 99 06/29/16 12:25 98.1 F 06/29/16 11:54 107 H 20 115/56 L 99 Intake and Output (Last 8hrs): Intake & Output 06/29/16 06/29/16 06/29/16 06:59 14:59 22:59 Intake Total 3315 Output Total 1000 Balance 2315 Intake: IV 2800 Intake, IV Amount 515 Left Forearm 15 Right Forearm 500 Output: Urine 1000 Urine, Voided 1000 - Physical Exam Head: Positive for: Atraumatic, Normocephalic Pupils: Positive for: PERRL Extroacular Muscles: Positive for: EOMI Conjunctiva: Positive for: Normal Mouth: Positive for: Dry Respiratory/Chest: Positive for: Clear to Auscultation, Tachypneic Cardiovascular: Positive for: Tachycardic Abdomen: Positive for: Tenderness, Normal Bowel Sounds. Negative for: Distention Upper Extremity: Positive for: Normal Inspection, NORMAL PULSES. Negative for: Cyanosis, Edema Lower Extremity: Positive for: Normal Inspection, NORMAL PULSES. Negative for: Edema, CALF TENDERNESS Neurological: Positive for: GCS=15, CN II-XII Intact Skin: Positive for: Warm, Dry, Normal Color Psychiatric: Positive for: Alert, Lethargic - Medications Active Medications: Active Medications Generic Name Dose Route Start Last Admin Trade Name Freq PRN Reason Stop Dose Admin Enoxaparin Sodium 40 mg 06/30/16 10:00 Lovenox SC DAILY JERROD Famotidine 20 mg 06/30/16 10:00 Pepcid IVP DAILY JERROD Sodium Chloride 1,000 mls @ 250 mls/hr 06/29/16 10:15 06/29/16 10:27 Sodium Chloride 0.9% IV 250 mls/hr .Q4H JERROD Administration Insulin Human Regular 100 unit 100 mls @ 5 mls/hr 06/29/16 10:20 06/29/16 14: 00 / Sodium Chloride IV 7 u/hr .Q20H JERROD 7 mls/hr Protocol Titration 5 U/HR Ondansetron HCl 4 mg 06/29/16 10:13 Zofran Inj IVP Q6H PRN Nausea/Vomiting - Patient Studies Lab Studies: Lab Studies 06/29/16 06/29/16 06/29/16 Range/Units 13:58 12:10 11:29 WBC (4.8-10.8) K/uL RBC (4.40-5.90) Mil/uL Hgb (12.0-18.0) g/dL Hct (35.0-51.0) % MCV (80.0-94.0) fL MCH (27.0-31.0) pg MCHC (33.0-37.0) g/dL RDW (11.5-14.5) % Plt Count (130-400) K/uL MPV (7.2-11.7) fL Neut % (Auto) (50.0-75.0) % Lymph % (Auto) (20.0-40.0) % Meigs % (Auto) (0.0-10.0) % Eos % (Auto) (0.0-4.0) % Baso % (Auto) (0.0-2.0) % Neut # (1.8-7.0) K/uL Lymph # (1.0-4.3) K/uL Meigs # (0.0-0.8) K/uL Eos # (0.0-0.7) K/uL Baso # (0.0-0.2) K/uL Neutrophils % (Manual) (50-75) % Lymphocytes % (Manual) (20-40) % Monocytes % (Manual) (0-10) % Platelet Estimate (NORMAL) Hypochromasia (manual) Poikilocytosis (manual Anisocytosis (manual) Puncture Site pCO2 (35-45) mm/Hg pO2 (80-100) mm/Hg HCO3 (21-28) mmol/L ABG pH (7.35-7.45) ABG Total CO2 (22-28) mmol/L ABG O2 Saturation (95-98) % ABG Base Excess (-2.0-3.0) mmol/L ABG Hemoglobin (11.7-17.4) g/dL ABG Carboxyhemoglobin (0.5-1.5) % POC ABG HHb (Measured) (0.0-5.0) % ABG Methemoglobin (0.0-3.0) % Geoff Test A-a O2 Difference mm/Hg Respiratory Index Hgb O2 Saturation (95.0-98.0) % FiO2 % Crit Value Called To Crit Value Called By Crit Value Read Back Blood Gas Notified Time Sodium 132 (132-148) mmol/L Potassium 5.2 (3.6-5.2) mmol/L Chloride 95 L (98-107) mmol/L Carbon Dioxide 7 L* D (22-30) mmol/L Anion Gap 35 H (10-20) BUN 42 H (9-20) mg/dL Creatinine 2.0 H (0.8-1.5) MG/DL Est GFR ( Amer) 43 Est GFR (Non-Af Amer) 36 POC Glucose (mg/dL) 436 H* > 500 H* (65-110) mg/dL Random Glucose 722 H* D (75-110) mg/dL Calcium 8.5 L (8.6-10.4) mg/dl Phosphorus 5.9 H (2.5-4.5) mg/dL Magnesium 2.4 H (1.6-2.3) mg/dL 06/29/16 06/29/16 06/29/16 Range/Units 11:29 11:10 10:36 WBC 19.1 H (4.8-10.8) K/uL RBC 3.22 L (4.40-5.90) Mil/uL Hgb 9.7 L (12.0-18.0) g/dL Hct 30.3 L (35.0-51.0) % MCV 94.3 H D (80.0-94.0) fL MCH 30.2 (27.0-31.0) pg MCHC 32.0 L (33.0-37.0) g/dL RDW 12.9 (11.5-14.5) % Plt Count 387 (130-400) K/uL MPV 7.7 (7.2-11.7) fL Neut % (Auto) 89.9 H (50.0-75.0) % Lymph % (Auto) 3.6 L (20.0-40.0) % Meigs % (Auto) 6.2 (0.0-10.0) % Eos % (Auto) 0.0 (0.0-4.0) % Baso % (Auto) 0.3 (0.0-2.0) % Neut # 17.2 H (1.8-7.0) K/uL Lymph # 0.7 L (1.0-4.3) K/uL Meigs # 1.2 H (0.0-0.8) K/uL Eos # 0.0 (0.0-0.7) K/uL Baso # 0.1 (0.0-0.2) K/uL Neutrophils % (Manual) 92 H (50-75) % Lymphocytes % (Manual) 2 L (20-40) % Monocytes % (Manual) 6 (0-10) % Platelet Estimate Normal (NORMAL) Hypochromasia (manual) Slight Poikilocytosis (manual Slight Anisocytosis (manual) Slight Puncture Site Rb pCO2 20 L (35-45) mm/Hg pO2 86 (80-100) mm/Hg HCO3 9.5 L* (21-28) mmol/L ABG pH 7.16 L* (7.35-7.45) ABG Total CO2 7.7 L (22-28) mmol/L ABG O2 Saturation 99.0 H (95-98) % ABG Base Excess -19.8 L (-2.0-3.0) mmol/L ABG Hemoglobin 9.3 L (11.7-17.4) g/dL ABG Carboxyhemoglobin 1.5 (0.5-1.5) % POC ABG HHb (Measured) 1.0 (0.0-5.0) % ABG Methemoglobin 1.2 (0.0-3.0) % Geoff Test Na A-a O2 Difference 39.0 mm/Hg Respiratory Index 0.5 Hgb O2 Saturation 96.3 (95.0-98.0) % FiO2 21.0 % Crit Value Called To Dr hamzah guerrier Crit Value Called By Khadra crowley night court magistrate Crit Value Read Back Y Blood Gas Notified Time 1440 Sodium (132-148) mmol/L Potassium (3.6-5.2) mmol/L Chloride (98-107) mmol/L Carbon Dioxide (22-30) mmol/L Anion Gap (10-20) BUN (9-20) mg/dL Creatinine (0.8-1.5) MG/DL Est GFR ( Amer) Est GFR (Non-Af Amer) POC Glucose (mg/dL) > 500 H* (65-110) mg/dL Random Glucose (75-110) mg/dL Calcium (8.6-10.4) mg/dl Phosphorus (2.5-4.5) mg/dL Magnesium (1.6-2.3) mg/dL Laboratory Results - last 24 hr 06/29/16 06/29/16 06/29/16 10:36 11:10 11:29 WBC 19.1 H RBC 3.22 L Hgb 9.7 L Hct 30.3 L MCV 94.3 H D MCH 30.2 MCHC 32.0 L RDW 12.9 Plt Count 387 MPV 7.7 Neut % (Auto) 89.9 H Lymph % (Auto) 3.6 L Meigs % (Auto) 6.2 Eos % (Auto) 0.0 Baso % (Auto) 0.3 Neut # 17.2 H Lymph # 0.7 L Meigs # 1.2 H Eos # 0.0 Baso # 0.1 Neutrophils % (Manual) 92 H Lymphocytes % (Manual) 2 L Monocytes % (Manual) 6 Platelet Estimate Normal Hypochromasia (manual) Slight Poikilocytosis (manual Slight Anisocytosis (manual) Slight Puncture Site Rb pCO2 20 L pO2 86 HCO3 9.5 L* ABG pH 7.16 L* ABG Total CO2 7.7 L ABG O2 Saturation 99.0 H ABG Base Excess -19.8 L ABG Hemoglobin 9.3 L ABG Carboxyhemoglobin 1.5 POC ABG HHb (Measured) 1.0 ABG Methemoglobin 1.2 Geoff Test Na A-a O2 Difference 39.0 Respiratory Index 0.5 Hgb O2 Saturation 96.3 FiO2 21.0 Crit Value Called To Dr hamzah guerrier Crit Value Called By Khadra crowley night court magistrate Crit Value Read Back Y Blood Gas Notified Time 1440 Sodium Potassium Chloride Carbon Dioxide Anion Gap BUN Creatinine Est GFR ( Amer) Est GFR (Non-Af Amer) POC Glucose (mg/dL) > 500 H* Random Glucose Calcium Phosphorus Magnesium 06/29/16 06/29/16 06/29/16 11:29 12:10 13:58 WBC RBC Hgb Hct MCV MCH MCHC RDW Plt Count MPV Neut % (Auto) Lymph % (Auto) Meigs % (Auto) Eos % (Auto) Baso % (Auto) Neut # Lymph # Meigs # Eos # Baso # Neutrophils % (Manual) Lymphocytes % (Manual) Monocytes % (Manual) Platelet Estimate Hypochromasia (manual) Poikilocytosis (manual Anisocytosis (manual) Puncture Site pCO2 pO2 HCO3 ABG pH ABG Total CO2 ABG O2 Saturation ABG Base Excess ABG Hemoglobin ABG Carboxyhemoglobin POC ABG HHb (Measured) ABG Methemoglobin Geoff Test A-a O2 Difference Respiratory Index Hgb O2 Saturation FiO2 Crit Value Called To Crit Value Called By Crit Value Read Back Blood Gas Notified Time Sodium 132 Potassium 5.2 Chloride 95 L Carbon Dioxide 7 L* D Anion Gap 35 H BUN 42 H Creatinine 2.0 H Est GFR ( Amer) 43 Est GFR (Non-Af Amer) 36 POC Glucose (mg/dL) > 500 H* 436 H* Random Glucose 722 H* D Calcium 8.5 L Phosphorus 5.9 H Magnesium 2.4 H Fingerstick Blood Sugar Results: 436 Assessment/Plan - Assessment and Plan (Free Text) Assessment: 50 M with PMHx IDDM, HTN, CVA, and CAD presented to the ED with DKA. Plan: DKA * On admission: Sugars 1147, Metabolic acidosis on ABG, pH of 7.16, with anion gap of 33. * Started on Insulin Drip @ 5 units with a titrating protocol * Accuchecks Q1H, BMP Q4H * NS @ 250 cc/hr * Zofran PRN, NPO Hx HTN * Monitor * HELD home medication: Lisinopril 20mg PO QD * Patient is currently hypotensive Hx CVA * CT head (06/12/16): 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, scattered nonspecific white matter changes CAD * Echo 06/12/16: w/normal LV systolic function, diastolic dysfunction, Trace MR, trace-mild TR, EF 67% * ASA 81mg PO daily, Plavix 75mg daily Prophylactic Measures * GI PPX: Pepcid 20mg IVP daily * DVT PPX: Lovenox 40mg SC DW Yfn Guerrier DO, PGY-1 <Henrry Guerrier - Last Filed: 06/29/16 19:16> CCU Objective - Vital Signs / Intake & Output Vital Signs (Last 4 hours): Vital Signs Temp Pulse Resp BP Pulse Ox 06/29/16 18:00 98 H 19 111/62 99 06/29/16 17:00 101 H 18 109/71 98 06/29/16 16:00 98 F 92 H 19 111/66 99 Intake and Output (Last 8hrs): Intake & Output 06/29/16 06/29/16 06/29/16 06:59 14:59 22:59 Intake Total 3315 935 Output Total 1000 Balance 2315 935 Intake: IV 2800 17 Intake, IV Amount 515 918 Left Forearm 15 18 Right Forearm 500 900 Output: Urine 1000 Urine, Voided 1000 - Medications Active Medications: Active Medications Generic Name Dose Route Start Last Admin Trade Name Freq PRN Reason Stop Dose Admin Aspirin 81 mg 06/30/16 10:00 Aspirin Chewable PO DAILY [facility] Clopidogrel Bisulfate 75 mg 06/30/16 10:00 Plavix PO DAILY [facility] Enoxaparin Sodium 40 mg 06/30/16 10:00 Lovenox SC DAILY JERROD Famotidine 20 mg 06/30/16 10:00 Pepcid IVP DAILY [facility] Insulin Human Regular 100 unit 100 mls @ 5 mls/hr 06/29/16 10:20 06/29/16 18: 03 / Sodium Chloride IV 2 u/hr .Q20H JERROD 2 mls/hr Protocol Titration 5 U/HR Potassium Chloride/Dextrose/Sod Cl 1,000 mls @ 175 mls/hr 06/29/16 18:30 04/16 18:44 Potassium Chl 40 Meq In D5-1/2ns IV 175 mls/hr .Q5H43M JERROD Administration Ondansetron HCl 4 mg 06/29/16 10:13 Zofran Inj IVP Q6H PRN Nausea/Vomiting - Patient Studies Lab Studies: Lab Studies 06/29/16 06/29/16 06/29/16 Range/Units 19:09 18:01 17:08 WBC (4.8-10.8) K/uL RBC (4.40-5.90) Mil/uL Hgb (12.0-18.0) g/dL Hct (35.0-51.0) % MCV (80.0-94.0) fL MCH (27.0-31.0) pg MCHC (33.0-37.0) g/dL RDW (11.5-14.5) % Plt Count (130-400) K/uL MPV (7.2-11.7) fL Neut % (Auto) (50.0-75.0) % Lymph % (Auto) (20.0-40.0) % Meigs % (Auto) (0.0-10.0) % Eos % (Auto) (0.0-4.0) % Baso % (Auto) (0.0-2.0) % Neut # (1.8-7.0) K/uL Lymph # (1.0-4.3) K/uL Meigs # (0.0-0.8) K/uL Eos # (0.0-0.7) K/uL Baso # (0.0-0.2) K/uL Neutrophils % (Manual) (50-75) % Lymphocytes % (Manual) (20-40) % Monocytes % (Manual) (0-10) % Platelet Estimate (NORMAL) Hypochromasia (manual) Poikilocytosis (manual Anisocytosis (manual) Puncture Site pCO2 (35-45) mm/Hg pO2 (80-100) mm/Hg HCO3 (21-28) mmol/L ABG pH (7.35-7.45) ABG Total CO2 (22-28) mmol/L ABG O2 Saturation (95-98) % ABG Base Excess (-2.0-3.0) mmol/L ABG Hemoglobin (11.7-17.4) g/dL ABG Carboxyhemoglobin (0.5-1.5) % POC ABG HHb (Measured) (0.0-5.0) % ABG Methemoglobin (0.0-3.0) % Geoff Test A-a O2 Difference mm/Hg Respiratory Index Hgb O2 Saturation (95.0-98.0) % FiO2 % Crit Value Called To Crit Value Called By Crit Value Read Back Blood Gas Notified Time Sodium (132-148) mmol/L Potassium (3.6-5.2) mmol/L Chloride (98-107) mmol/L Carbon Dioxide (22-30) mmol/L Anion Gap (10-20) BUN (9-20) mg/dL Creatinine (0.8-1.5) MG/DL Est GFR ( Amer) Est GFR (Non-Af Amer) POC Glucose (mg/dL) 177 H 170 H 249 H (65-110) mg/dL Random Glucose (75-110) mg/dL Calcium (8.6-10.4) mg/dl Phosphorus (2.5-4.5) mg/dL Magnesium (1.6-2.3) mg/dL Total Bilirubin (0.2-1.3) mg/dL AST (17-59) U/L ALT (21-72) U/L Alkaline Phosphatase (38-126) U/L Total Protein (6.3-8.3) g/dL Albumin (3.5-5.0) g/dL Globulin (2.2-3.9) gm/dL Albumin/Globulin Ratio (1.0-2.1) 06/29/16 06/29/16 06/29/16 Range/Units 16:12 15:16 14:40 WBC (4.8-10.8) K/uL RBC (4.40-5.90) Mil/uL Hgb (12.0-18.0) g/dL Hct (35.0-51.0) % MCV (80.0-94.0) fL MCH (27.0-31.0) pg MCHC (33.0-37.0) g/dL RDW (11.5-14.5) % Plt Count (130-400) K/uL MPV (7.2-11.7) fL Neut % (Auto) (50.0-75.0) % Lymph % (Auto) (20.0-40.0) % Meigs % (Auto) (0.0-10.0) % Eos % (Auto) (0.0-4.0) % Baso % (Auto) (0.0-2.0) % Neut # (1.8-7.0) K/uL Lymph # (1.0-4.3) K/uL Meigs # (0.0-0.8) K/uL Eos # (0.0-0.7) K/uL Baso # (0.0-0.2) K/uL Neutrophils % (Manual) (50-75) % Lymphocytes % (Manual) (20-40) % Monocytes % (Manual) (0-10) % Platelet Estimate (NORMAL) Hypochromasia (manual) Poikilocytosis (manual Anisocytosis (manual) Puncture Site pCO2 (35-45) mm/Hg pO2 (80-100) mm/Hg HCO3 (21-28) mmol/L ABG pH (7.35-7.45) ABG Total CO2 (22-28) mmol/L ABG O2 Saturation (95-98) % ABG Base Excess (-2.0-3.0) mmol/L ABG Hemoglobin (11.7-17.4) g/dL ABG Carboxyhemoglobin (0.5-1.5) % POC ABG HHb (Measured) (0.0-5.0) % ABG Methemoglobin (0.0-3.0) % Geoff Test A-a O2 Difference mm/Hg Respiratory Index Hgb O2 Saturation (95.0-98.0) % FiO2 % Crit Value Called To Crit Value Called By Crit Value Read Back Blood Gas Notified Time Sodium 135 (132-148) mmol/L Potassium 4.9 (3.6-5.2) mmol/L Chloride 100 (98-107) mmol/L Carbon Dioxide 16 L (22-30) mmol/L Anion Gap 24 H (10-20) BUN 44 H (9-20) mg/dL Creatinine 1.8 H (0.8-1.5) MG/DL Est GFR ( Amer) 49 Est GFR (Non-Af Amer) 40 POC Glucose (mg/dL) 383 H 370 H (65-110) mg/dL Random Glucose 373 H (75-110) mg/dL Calcium 8.7 (8.6-10.4) mg/dl Phosphorus 4.3 (2.5-4.5) mg/dL Magnesium 2.3 (1.6-2.3) mg/dL Total Bilirubin 0.8 (0.2-1.3) mg/dL AST 69 H (17-59) U/L ALT 270 H (21-72) U/L Alkaline Phosphatase 131 H D (38-126) U/L Total Protein 6.3 (6.3-8.3) g/dL Albumin 3.7 (3.5-5.0) g/dL Globulin 2.6 (2.2-3.9) gm/dL Albumin/Globulin Ratio 1.4 (1.0-2.1) 06/29/16 06/29/16 06/29/16 Range/Units 13:58 12:10 11:29 WBC (4.8-10.8) K/uL RBC (4.40-5.90) Mil/uL Hgb (12.0-18.0) g/dL Hct (35.0-51.0) % MCV (80.0-94.0) fL MCH (27.0-31.0) pg MCHC (33.0-37.0) g/dL RDW (11.5-14.5) % Plt Count (130-400) K/uL MPV (7.2-11.7) fL Neut % (Auto) (50.0-75.0) % Lymph % (Auto) (20.0-40.0) % Meigs % (Auto) (0.0-10.0) % Eos % (Auto) (0.0-4.0) % Baso % (Auto) (0.0-2.0) % Neut # (1.8-7.0) K/uL Lymph # (1.0-4.3) K/uL Meigs # (0.0-0.8) K/uL Eos # (0.0-0.7) K/uL Baso # (0.0-0.2) K/uL Neutrophils % (Manual) (50-75) % Lymphocytes % (Manual) (20-40) % Monocytes % (Manual) (0-10) % Platelet Estimate (NORMAL) Hypochromasia (manual) Poikilocytosis (manual Anisocytosis (manual) Puncture Site pCO2 (35-45) mm/Hg pO2 (80-100) mm/Hg HCO3 (21-28) mmol/L ABG pH (7.35-7.45) ABG Total CO2 (22-28) mmol/L ABG O2 Saturation (95-98) % ABG Base Excess (-2.0-3.0) mmol/L ABG Hemoglobin (11.7-17.4) g/dL ABG Carboxyhemoglobin (0.5-1.5) % POC ABG HHb (Measured) (0.0-5.0) % ABG Methemoglobin (0.0-3.0) % Geoff Test A-a O2 Difference mm/Hg Respiratory Index Hgb O2 Saturation (95.0-98.0) % FiO2 % Crit Value Called To Crit Value Called By Crit Value Read Back Blood Gas Notified Time Sodium 132 (132-148) mmol/L Potassium 5.2 (3.6-5.2) mmol/L Chloride 95 L (98-107) mmol/L Carbon Dioxide 7 L* D (22-30) mmol/L Anion Gap 35 H (10-20) BUN 42 H (9-20) mg/dL Creatinine 2.0 H (0.8-1.5) MG/DL Est GFR ( Amer) 43 Est GFR (Non-Af Amer) 36 POC Glucose (mg/dL) 436 H* > 500 H* (65-110) mg/dL Random Glucose 722 H* D (75-110) mg/dL Calcium 8.5 L (8.6-10.4) mg/dl Phosphorus 5.9 H (2.5-4.5) mg/dL Magnesium 2.4 H (1.6-2.3) mg/dL Total Bilirubin (0.2-1.3) mg/dL AST (17-59) U/L ALT (21-72) U/L Alkaline Phosphatase (38-126) U/L Total Protein (6.3-8.3) g/dL Albumin (3.5-5.0) g/dL Globulin (2.2-3.9) gm/dL Albumin/Globulin Ratio (1.0-2.1) 06/29/16 06/29/16 06/29/16 Range/Units 11:29 11:10 10:36 WBC 19.1 H (4.8-10.8) K/uL RBC 3.22 L (4.40-5.90) Mil/uL Hgb 9.7 L (12.0-18.0) g/dL Hct 30.3 L (35.0-51.0) % MCV 94.3 H D (80.0-94.0) fL MCH 30.2 (27.0-31.0) pg MCHC 32.0 L (33.0-37.0) g/dL RDW 12.9 (11.5-14.5) % Plt Count 387 (130-400) K/uL MPV 7.7 (7.2-11.7) fL Neut % (Auto) 89.9 H (50.0-75.0) % Lymph % (Auto) 3.6 L (20.0-40.0) % Meigs % (Auto) 6.2 (0.0-10.0) % Eos % (Auto) 0.0 (0.0-4.0) % Baso % (Auto) 0.3 (0.0-2.0) % Neut # 17.2 H (1.8-7.0) K/uL Lymph # 0.7 L (1.0-4.3) K/uL Meigs # 1.2 H (0.0-0.8) K/uL Eos # 0.0 (0.0-0.7) K/uL Baso # 0.1 (0.0-0.2) K/uL Neutrophils % (Manual) 92 H (50-75) % Lymphocytes % (Manual) 2 L (20-40) % Monocytes % (Manual) 6 (0-10) % Platelet Estimate Normal (NORMAL) Hypochromasia (manual) Slight Poikilocytosis (manual Slight Anisocytosis (manual) Slight Puncture Site Rb pCO2 20 L (35-45) mm/Hg pO2 86 (80-100) mm/Hg HCO3 9.5 L* (21-28) mmol/L ABG pH 7.16 L* (7.35-7.45) ABG Total CO2 7.7 L (22-28) mmol/L ABG O2 Saturation 99.0 H (95-98) % ABG Base Excess -19.8 L (-2.0-3.0) mmol/L ABG Hemoglobin 9.3 L (11.7-17.4) g/dL ABG Carboxyhemoglobin 1.5 (0.5-1.5) % POC ABG HHb (Measured) 1.0 (0.0-5.0) % ABG Methemoglobin 1.2 (0.0-3.0) % Geoff Test Na A-a O2 Difference 39.0 mm/Hg Respiratory Index 0.5 Hgb O2 Saturation 96.3 (95.0-98.0) % FiO2 21.0 % Crit Value Called To Dr hamzah guerrier Crit Value Called By Khadra crowley rrt Crit Value Read Back Y Blood Gas Notified Time 1440 Sodium (132-148) mmol/L Potassium (3.6-5.2) mmol/L Chloride (98-107) mmol/L Carbon Dioxide (22-30) mmol/L Anion Gap (10-20) BUN (9-20) mg/dL Creatinine (0.8-1.5) MG/DL Est GFR ( Amer) Est GFR (Non-Af Amer) POC Glucose (mg/dL) > 500 H* (65-110) mg/dL Random Glucose (75-110) mg/dL Calcium (8.6-10.4) mg/dl Phosphorus (2.5-4.5) mg/dL Magnesium (1.6-2.3) mg/dL Total Bilirubin (0.2-1.3) mg/dL AST (17-59) U/L ALT (21-72) U/L Alkaline Phosphatase (38-126) U/L Total Protein (6.3-8.3) g/dL Albumin (3.5-5.0) g/dL Globulin (2.2-3.9) gm/dL Albumin/Globulin Ratio (1.0-2.1) Laboratory Results - last 24 hr 06/29/16 06/29/16 06/29/16 10:36 11:10 11:29 WBC 19.1 H RBC 3.22 L Hgb 9.7 L Hct 30.3 L MCV 94.3 H D MCH 30.2 MCHC 32.0 L RDW 12.9 Plt Count 387 MPV 7.7 Neut % (Auto) 89.9 H Lymph % (Auto) 3.6 L Meigs % (Auto) 6.2 Eos % (Auto) 0.0 Baso % (Auto) 0.3 Neut # 17.2 H Lymph # 0.7 L Meigs # 1.2 H Eos # 0.0 Baso # 0.1 Neutrophils % (Manual) 92 H Lymphocytes % (Manual) 2 L Monocytes % (Manual) 6 Platelet Estimate Normal Hypochromasia (manual) Slight Poikilocytosis (manual Slight Anisocytosis (manual) Slight Puncture Site Rb pCO2 20 L pO2 86 HCO3 9.5 L* ABG pH 7.16 L* ABG Total CO2 7.7 L ABG O2 Saturation 99.0 H ABG Base Excess -19.8 L ABG Hemoglobin 9.3 L ABG Carboxyhemoglobin 1.5 POC ABG HHb (Measured) 1.0 ABG Methemoglobin 1.2 Geoff Test Na A-a O2 Difference 39.0 Respiratory Index 0.5 Hgb O2 Saturation 96.3 FiO2 21.0 Crit Value Called To Dr hamzah guerrier Crit Value Called By Khadra crowley [facility] magistrate Crit Value Read Back Y Blood Gas Notified Time 1440 Sodium Potassium Chloride Carbon Dioxide Anion Gap BUN Creatinine Est GFR ( Amer) Est GFR (Non-Af Amer) POC Glucose (mg/dL) > 500 H* Random Glucose Calcium Phosphorus Magnesium Total Bilirubin AST ALT Alkaline Phosphatase Total Protein Albumin Globulin Albumin/Globulin Ratio 06/29/16 06/29/16 06/29/16 11:29 12:10 13:58 WBC RBC Hgb Hct MCV MCH MCHC RDW Plt Count MPV Neut % (Auto) Lymph % (Auto) Meigs % (Auto) Eos % (Auto) Baso % (Auto) Neut # Lymph # Meigs # Eos # Baso # Neutrophils % (Manual) Lymphocytes % (Manual) Monocytes % (Manual) Platelet Estimate Hypochromasia (manual) Poikilocytosis (manual Anisocytosis (manual) Puncture Site pCO2 pO2 HCO3 ABG pH ABG Total CO2 ABG O2 Saturation ABG Base Excess ABG Hemoglobin ABG Carboxyhemoglobin POC ABG HHb (Measured) ABG Methemoglobin Geoff Test A-a O2 Difference Respiratory Index Hgb O2 Saturation FiO2 Crit Value Called To Crit Value Called By Crit Value Read Back Blood Gas Notified Time Sodium 132 Potassium 5.2 Chloride 95 L Carbon Dioxide 7 L* D Anion Gap 35 H BUN 42 H Creatinine 2.0 H Est GFR ( Amer) 43 Est GFR (Non-Af Amer) 36 POC Glucose (mg/dL) > 500 H* 436 H* Random Glucose 722 H* D Calcium 8.5 L Phosphorus 5.9 H Magnesium 2.4 H Total Bilirubin AST ALT Alkaline Phosphatase Total Protein Albumin Globulin Albumin/Globulin Ratio 06/29/16 06/29/16 06/29/16 14:40 15:16 16:12 WBC RBC Hgb Hct MCV MCH MCHC RDW Plt Count MPV Neut % (Auto) Lymph % (Auto) Meigs % (Auto) Eos % (Auto) Baso % (Auto) Neut # Lymph # Meigs # Eos # Baso # Neutrophils % (Manual) Lymphocytes % (Manual) Monocytes % (Manual) Platelet Estimate Hypochromasia (manual) Poikilocytosis (manual Anisocytosis (manual) Puncture Site pCO2 pO2 HCO3 ABG pH ABG Total CO2 ABG O2 Saturation ABG Base Excess ABG Hemoglobin ABG Carboxyhemoglobin POC ABG HHb (Measured) ABG Methemoglobin Geoff Test A-a O2 Difference Respiratory Index Hgb O2 Saturation FiO2 Crit Value Called To Crit Value Called By Crit Value Read Back Blood Gas Notified Time Sodium 135 Potassium 4.9 Chloride 100 Carbon Dioxide 16 L Anion Gap 24 H BUN 44 H Creatinine 1.8 H Est GFR ( Amer) 49 Est GFR (Non-Af Amer) 40 POC Glucose (mg/dL) 370 H 383 H Random Glucose 373 H Calcium 8.7 Phosphorus 4.3 Magnesium 2.3 Total Bilirubin 0.8 AST 69 H ALT 270 H Alkaline Phosphatase 131 H D Total Protein 6.3 Albumin 3.7 Globulin 2.6 Albumin/Globulin Ratio 1.4 06/29/16 06/29/16 06/29/16 17:08 18:01 19:09 WBC RBC Hgb Hct MCV MCH MCHC RDW Plt Count MPV Neut % (Auto) Lymph % (Auto) Meigs % (Auto) Eos % (Auto) Baso % (Auto) Neut # Lymph # Meigs # Eos # Baso # Neutrophils % (Manual) Lymphocytes % (Manual) Monocytes % (Manual) Platelet Estimate Hypochromasia (manual) Poikilocytosis (manual Anisocytosis (manual) Puncture Site pCO2 pO2 HCO3 ABG pH ABG Total CO2 ABG O2 Saturation ABG Base Excess ABG Hemoglobin ABG Carboxyhemoglobin POC ABG HHb (Measured) ABG Methemoglobin Geoff Test A-a O2 Difference Respiratory Index Hgb O2 Saturation FiO2 Crit Value Called To Crit Value Called By Crit Value Read Back Blood Gas Notified Time Sodium Potassium Chloride Carbon Dioxide Anion Gap BUN Creatinine Est GFR ( Amer) Est GFR (Non-Af Amer) POC Glucose (mg/dL) 249 H 170 H 177 H Random Glucose Calcium Phosphorus Magnesium Total Bilirubin AST ALT Alkaline Phosphatase Total Protein Albumin Globulin Albumin/Globulin Ratio Critical Care Progress Note - Nutrition Nutrition: Nutrition Category Date Time Status Diabetic [Consistent Carbohydrate] [DIET] Diets 06/29/16 Dinner Active Attending/Attestation - Attestation I have personally seen and examined this patient.: Yes I have fully participated in the care of the patient.: Yes I have reviewed all pertinent clinical information: Yes Notes (Text): 06/29/16 19:16 Patient with DKA improving. Discussed during the rounds
[2016-06-29 15:07] LABS: POTASSIUM 4.9 mmol/L (3.6-5.2)
[2016-06-29 15:10] LABS: ALB/GLOB RATIO 1.4 (1.0-2.1); BILIRUBIN,TOTAL 0.8 mg/dL (0.2-1.3); CALCIUM 8.7 mg/dl (8.6-10.4); PHOSPHOROUS 4.3 mg/dL (2.5-4.5); TOTAL PROTEIN 6.3 g/dL (6.3-8.3)
[2016-06-29 15:11] LABS: MAGNESIUM 2.3 mg/dL (1.6-2.3)
--- NOTE | 2016-06-29 15:12 | CP.PCM.HP ---
<Sridevi Coulter - Last Filed: 06/29/16 15:47> History of Present Illness - History of Present Illness History of Present Illness: Medicine Note HPI: 50M with PMHx of DM type 1 presented to the ED complaining of nausea, vomiting, and diarrhea x 1 day. Patient has history of uncontrolled IDDM, he is noncompliant with his medications. This is the 3rd admission for DKA within 1 month, last admission being on 06/21/16. On exam patient is lethargic, severely dehydrated, tachycardiac, with residual left sided hemiparesis with left foot in a plastic brace. Patient was given 3 liters of NS in ED, started on insulin drip, calcium gluconate, and bicarb. 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, chronic migraines/headache, Left eye vision changes PSHx: Cath (04/2016 at [place]) w/1 vessel disease, Appendectomy Meds: As per APR ALL: NKDA SHx: Social ETOH use #1-2 drinks/3 mos, denies tobacco/illicit drug use; pt recently jailed x 22 days from 04/16-05/07/2016 FHx: Unremarkable PMD: Chiara Marrufo Present on Admission - Present on Admission Any Indicators Present on Admission: No History of DVT/PE: No History of Uncontrolled Diabetes: Yes Past Patient History - Past Medical History & Family History Past Medical History?: Yes - Past Social History Smoking Status: Never Smoked - CARDIAC Hx Hypertension: Yes - PULMONARY Hx Respiratory Disorders: No - NEUROLOGICAL Hx Neurological Disorder: Yes HX Cerebrovascular Accident: Yes (2013 W/ LEFT SIDED WEAKNESS) - ENDOCRINE/METABOLIC Hx Diabetes Mellitus Type 1: Yes (ON INSULIN PUMP) Other/Comment: dka - MUSCULOSKELETAL/RHEUMATOLOGICAL Hx Falls: No - GASTROINTESTINAL Hx Gastrointestinal Disorders: No - GENITOURINARY/GYNECOLOGICAL Hx Genitourinary Disorders: No - PSYCHIATRIC Hx Substance Use: No - SURGICAL HISTORY Hx Appendectomy: Yes - ANESTHESIA Hx Anesthesia: No Hx Anesthesia Reactions: No Hx Malignant Hyperthermia: No Has any member of the family had a problem w/ anesthesia?: No Meds Allergies/Adverse Reactions: Allergies Allergy/AdvReac Type Severity Reaction Status Date / Time No Known Allergies Allergy Verified 06/20/16 23:55 Physical Exam - Constitutional Appears: Confused - Eye Exam Eye Exam: Normal appearance Pupil Exam: NORMAL ACCOMODATION - ENT Exam ENT Exam: Mucous Membranes Dry - Neck Exam Neck exam: Positive for: Normal Inspection. Negative for: Tenderness - Respiratory Exam Respiratory Exam: NORMAL BREATHING PATTERN. absent: Decreased Breath Sounds, Rales, Rhonchi, Wheezes - Cardiovascular Exam Cardiovascular Exam: Tachycardia - GI/Abdominal Exam GI & Abdominal Exam: Normal Bowel Sounds, Soft. absent: Tenderness - Extremities Exam Extremities exam: Negative for: calf tenderness, tenderness - Back Exam Back exam: NORMAL INSPECTION. absent: CVA tenderness (L), CVA tenderness (R) - Neurological Exam Neurological exam: Alert, Oriented x3 - Skin Skin Exam: Dry, Intact, Normal Color, Warm Results - Vital Signs Recent Vital Signs: Last Vital Signs Temp 98.4 F 06/29/16 13:00 Pulse 88 06/29/16 14:05 Resp 20 06/29/16 14:00 BP 103/59 L 06/29/16 14:00 Pulse Ox 99 06/29/16 14:00 - Labs Result Diagrams: 06/29/16 11:29 06/29/16 14:40 Labs: Laboratory Results - last 24 hr 06/29/16 06/29/16 06/29/16 10:36 11:10 11:29 WBC 19.1 H RBC 3.22 L Hgb 9.7 L Hct 30.3 L MCV 94.3 H D MCH 30.2 MCHC 32.0 L RDW 12.9 Plt Count 387 MPV 7.7 Neut % (Auto) 89.9 H Lymph % (Auto) 3.6 L [place] % (Auto) 6.2 Eos % (Auto) 0.0 Baso % (Auto) 0.3 Neut # 17.2 H Lymph # 0.7 L [place] # 1.2 H Eos # 0.0 Baso # 0.1 Neutrophils % (Manual) 92 H Lymphocytes % (Manual) 2 L Monocytes % (Manual) 6 Platelet Estimate Normal Hypochromasia (manual) Slight Poikilocytosis (manual Slight Anisocytosis (manual) Slight Puncture Site Rb pCO2 20 L pO2 86 HCO3 9.5 L* ABG pH 7.16 L* ABG Total CO2 7.7 L ABG O2 Saturation 99.0 H ABG Base Excess -19.8 L ABG Hemoglobin 9.3 L ABG Carboxyhemoglobin 1.5 POC ABG HHb (Measured) 1.0 ABG Methemoglobin 1.2 Geoff Test Na A-a O2 Difference 39.0 Respiratory Index 0.5 Hgb O2 Saturation 96.3 FiO2 21.0 Crit Value Called To Dr hamzah guerrier Crit Value Called By Khadra crowley mri assistant Crit Value Read Back Y Blood Gas Notified Time 1440 Sodium Potassium Chloride Carbon Dioxide Anion Gap BUN Creatinine Est GFR ( Amer) Est GFR (Non-Af Amer) POC Glucose (mg/dL) > 500 H* Random Glucose Calcium Phosphorus Magnesium Total Bilirubin AST ALT Alkaline Phosphatase Total Protein Albumin Globulin Albumin/Globulin Ratio 06/29/16 06/29/16 06/29/16 11:29 12:10 13:58 WBC RBC Hgb Hct MCV MCH MCHC RDW Plt Count MPV Neut % (Auto) Lymph % (Auto) [place] % (Auto) Eos % (Auto) Baso % (Auto) Neut # Lymph # [place] # Eos # Baso # Neutrophils % (Manual) Lymphocytes % (Manual) Monocytes % (Manual) Platelet Estimate Hypochromasia (manual) Poikilocytosis (manual Anisocytosis (manual) Puncture Site pCO2 pO2 HCO3 ABG pH ABG Total CO2 ABG O2 Saturation ABG Base Excess ABG Hemoglobin ABG Carboxyhemoglobin POC ABG HHb (Measured) ABG Methemoglobin Geoff Test A-a O2 Difference Respiratory Index Hgb O2 Saturation FiO2 Crit Value Called To Crit Value Called By Crit Value Read Back Blood Gas Notified Time Sodium 132 Potassium 5.2 Chloride 95 L Carbon Dioxide 7 L* D Anion Gap 35 H BUN 42 H Creatinine 2.0 H Est GFR ( Amer) 43 Est GFR (Non-Af Amer) 36 POC Glucose (mg/dL) > 500 H* 436 H* Random Glucose 722 H* D Calcium 8.5 L Phosphorus 5.9 H Magnesium 2.4 H Total Bilirubin AST ALT Alkaline Phosphatase Total Protein Albumin Globulin Albumin/Globulin Ratio 06/29/16 14:40 WBC RBC Hgb Hct MCV MCH MCHC RDW Plt Count MPV Neut % (Auto) Lymph % (Auto) [place] % (Auto) Eos % (Auto) Baso % (Auto) Neut # Lymph # [place] # Eos # Baso # Neutrophils % (Manual) Lymphocytes % (Manual) Monocytes % (Manual) Platelet Estimate Hypochromasia (manual) Poikilocytosis (manual Anisocytosis (manual) Puncture Site pCO2 pO2 HCO3 ABG pH ABG Total CO2 ABG O2 Saturation ABG Base Excess ABG Hemoglobin ABG Carboxyhemoglobin POC ABG HHb (Measured) ABG Methemoglobin Geoff Test A-a O2 Difference Respiratory Index Hgb O2 Saturation FiO2 Crit Value Called To Crit Value Called By Crit Value Read Back Blood Gas Notified Time Sodium 135 Potassium 4.9 Chloride 100 Carbon Dioxide 16 L Anion Gap 24 H BUN 44 H Creatinine 1.8 H Est GFR ( Amer) 49 Est GFR (Non-Af Amer) 40 POC Glucose (mg/dL) Random Glucose 373 H Calcium Phosphorus 4.3 Magnesium Total Bilirubin 0.8 AST 69 H ALT 270 H Alkaline Phosphatase 131 H D Total Protein 6.3 Albumin 3.7 Globulin 2.6 Albumin/Globulin Ratio 1.4 Assessment & Plan - Assessment and Plan (Free Text) Assessment: 50 M with PMHx IDDM, HTN, CVA, and CAD presented to the ED with DKA. Plan: DKA * On admission: Sugars 1147, Metabolic acidosis on ABG, pH of 7.16, with anion gap of 33. * Started on Insulin Drip @ 5 units with a titrating protocol * Accuchecks Q1H, BMP Q4H * NS @ 250 cc/hr * Zofran PRN, NPO Hx HTN * Monitor * HELD home medication: Lisinopril 20mg PO QD * Patient is currently hypotensive on fluids Hx CVA * CT head (06/12/16): 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, scattered nonspecific white matter changes CAD * Echo 06/12/16: w/normal LV systolic function, diastolic dysfunction, Trace MR, trace-mild TR, EF 67% * ASA 81mg PO daily, Plavix 75mg daily Prophylactic Measures * GI PPX: Pepcid 20mg IVP daily * DVT PPX: Lovenox 40mg SC Yfn Ellis DO, PGY-[address] <[address] - Last Filed: 06/29/16 18:57> Results - Vital Signs Recent Vital Signs: Last Vital Signs Temp 98 F 06/29/16 16:00 Pulse 98 H 06/29/16 18:00 Resp 19 06/29/16 18:00 BP 111/62 06/29/16 18:00 Pulse Ox 99 06/29/16 18:00 - Labs Result Diagrams: 06/29/16 11:29 06/29/16 14:40 Labs: Laboratory Results - last 24 hr 06/29/16 06/29/16 06/29/16 10:36 11:10 11:29 WBC 19.1 H RBC 3.22 L Hgb 9.7 L Hct 30.3 L MCV 94.3 H D MCH 30.2 MCHC 32.0 L RDW 12.9 Plt Count 387 MPV 7.7 Neut % (Auto) 89.9 H Lymph % (Auto) 3.6 L [place] % (Auto) 6.2 Eos % (Auto) 0.0 Baso % (Auto) 0.3 Neut # 17.2 H Lymph # 0.7 L [place] # 1.2 H Eos # 0.0 Baso # 0.1 Neutrophils % (Manual) 92 H Lymphocytes % (Manual) 2 L Monocytes % (Manual) 6 Platelet Estimate Normal Hypochromasia (manual) Slight Poikilocytosis (manual Slight Anisocytosis (manual) Slight Puncture Site Rb pCO2 20 L pO2 86 HCO3 9.5 L* ABG pH 7.16 L* ABG Total CO2 7.7 L ABG O2 Saturation 99.0 H ABG Base Excess -19.8 L ABG Hemoglobin 9.3 L ABG Carboxyhemoglobin 1.5 POC ABG HHb (Measured) 1.0 ABG Methemoglobin 1.2 Geoff Test Na A-a O2 Difference 39.0 Respiratory Index 0.5 Hgb O2 Saturation 96.3 FiO2 21.0 Crit Value Called To Dr hamzah guerrier Crit Value Called By Khadra crowley mri assistant Crit Value Read Back Y Blood Gas Notified Time 1440 Sodium Potassium Chloride Carbon Dioxide Anion Gap BUN Creatinine Est GFR ( Amer) Est GFR (Non-Af Amer) POC Glucose (mg/dL) > 500 H* Random Glucose Calcium Phosphorus Magnesium Total Bilirubin AST ALT Alkaline Phosphatase Total Protein Albumin Globulin Albumin/Globulin Ratio 06/29/16 06/29/16 06/29/16 11:29 12:10 13:58 WBC RBC Hgb Hct MCV MCH MCHC RDW Plt Count MPV Neut % (Auto) Lymph % (Auto) [place] % (Auto) Eos % (Auto) Baso % (Auto) Neut # Lymph # [place] # Eos # Baso # Neutrophils % (Manual) Lymphocytes % (Manual) Monocytes % (Manual) Platelet Estimate Hypochromasia (manual) Poikilocytosis (manual Anisocytosis (manual) Puncture Site pCO2 pO2 HCO3 ABG pH ABG Total CO2 ABG O2 Saturation ABG Base Excess ABG Hemoglobin ABG Carboxyhemoglobin POC ABG HHb (Measured) ABG Methemoglobin Geoff Test A-a O2 Difference Respiratory Index Hgb O2 Saturation FiO2 Crit Value Called To Crit Value Called By Crit Value Read Back Blood Gas Notified Time Sodium 132 Potassium 5.2 Chloride 95 L Carbon Dioxide 7 L* D Anion Gap 35 H BUN 42 H Creatinine 2.0 H Est GFR ( Amer) 43 Est GFR (Non-Af Amer) 36 POC Glucose (mg/dL) > 500 H* 436 H* Random Glucose 722 H* D Calcium 8.5 L Phosphorus 5.9 H Magnesium 2.4 H Total Bilirubin AST ALT Alkaline Phosphatase Total Protein Albumin Globulin Albumin/Globulin Ratio 06/29/16 06/29/16 06/29/16 14:40 15:16 16:12 WBC RBC Hgb Hct MCV MCH MCHC RDW Plt Count MPV Neut % (Auto) Lymph % (Auto) [place] % (Auto) Eos % (Auto) Baso % (Auto) Neut # Lymph # [place] # Eos # Baso # Neutrophils % (Manual) Lymphocytes % (Manual) Monocytes % (Manual) Platelet Estimate Hypochromasia (manual) Poikilocytosis (manual Anisocytosis (manual) Puncture Site pCO2 pO2 HCO3 ABG pH ABG Total CO2 ABG O2 Saturation ABG Base Excess ABG Hemoglobin ABG Carboxyhemoglobin POC ABG HHb (Measured) ABG Methemoglobin Geoff Test A-a O2 Difference Respiratory Index Hgb O2 Saturation FiO2 Crit Value Called To Crit Value Called By Crit Value Read Back Blood Gas Notified Time Sodium 135 Potassium 4.9 Chloride 100 Carbon Dioxide 16 L Anion Gap 24 H BUN 44 H Creatinine 1.8 H Est GFR ( Amer) 49 Est GFR (Non-Af Amer) 40 POC Glucose (mg/dL) 370 H 383 H Random Glucose 373 H Calcium 8.7 Phosphorus 4.3 Magnesium 2.3 Total Bilirubin 0.8 AST 69 H ALT 270 H Alkaline Phosphatase 131 H D Total Protein 6.3 Albumin 3.7 Globulin 2.6 Albumin/Globulin Ratio 1.4 06/29/16 06/29/16 17:08 18:01 WBC RBC Hgb Hct MCV MCH MCHC RDW Plt Count MPV Neut % (Auto) Lymph % (Auto) [place] % (Auto) Eos % (Auto) Baso % (Auto) Neut # Lymph # [place] # Eos # Baso # Neutrophils % (Manual) Lymphocytes % (Manual) Monocytes % (Manual) Platelet Estimate Hypochromasia (manual) Poikilocytosis (manual Anisocytosis (manual) Puncture Site pCO2 pO2 HCO3 ABG pH ABG Total CO2 ABG O2 Saturation ABG Base Excess ABG Hemoglobin ABG Carboxyhemoglobin POC ABG HHb (Measured) ABG Methemoglobin Geoff Test A-a O2 Difference Respiratory Index Hgb O2 Saturation FiO2 Crit Value Called To Crit Value Called By Crit Value Read Back Blood Gas Notified Time Sodium Potassium Chloride Carbon Dioxide Anion Gap BUN Creatinine Est GFR ( Amer) Est GFR (Non-Af Amer) POC Glucose (mg/dL) 249 H 170 H Random Glucose Calcium Phosphorus Magnesium Total Bilirubin AST ALT Alkaline Phosphatase Total Protein Albumin Globulin Albumin/Globulin Ratio Attending/Attestation - Attestation I have personally seen and examined this patient.: Yes I have fully participated in the care of the patient.: Yes I have reviewed all pertinent clinical information: Yes Notes (Text): 06/29/16 18:54 Medical attending: Patient was seen and examined by me in the emergency room at 12. I need to point out that this is either the third or fourth time the patient has come to the ER with DKA requiring ICU admission within the past 2-3 months. Each time the patient is discharged he is sent with supplies of insulin and also needles and syringes however is very concerning that he's not doing anything at all with regards to his diabetes. When I saw him he was talking to me, however his speech was very garbled and was difficult to understand. From my discussion with the patient before he claims that he is living with his sister and that he has insulin pump. He likes to talk a lot however I suspect that he is very noncompliant with his medication , and very likely he is homeless as well. I'm very worried that the patient has some sort of underlying psychiatric disorder that makes him neck left taking care of himself he has diabetes and formally is a . [facility] not [facility]. Thank you very much, [address]
[2016-06-29] MEDS ORDERED: Lactated Ringer's 1,000 ML IV SCH (17:00)
[2016-06-29] MEDS ORDERED: Potassium Chl 40 mEq in D5-1/2 1,000 ML IV SCH (18:30)
[2016-06-29 20:54] LABS: CHLORIDE 103 mmol/L (98-107); SODIUM 136 mmol/L (132-148)
[2016-06-29 20:55] LABS: POTASSIUM 4.6 mmol/L (3.6-5.2)
[2016-06-29 20:57] LABS: GFR AFRICAN-AMERICAN > 60
[2016-06-29 20:58] LABS: BLOOD UREA NITROGEN 37 mg/dL (9-20); CALCIUM 8.5 mg/dl (8.6-10.4); CARBON DIOXIDE 24 mmol/L (22-30); GLUCOSE,RANDOM 210 mg/dL (75-110)
[2016-06-29] MEDS: Insulin Detemir 100 units/ml Vial (Levemir) SC SCH ×2 (20:58→22:12)
[2016-06-30 06:44] LABS: BASO # 0.1 K/uL (0.0-0.2); BASO % 0.9 % (0.0-2.0); EOS # 0.3 K/uL (0.0-0.7); EOS % 2.8 % (0.0-4.0); HEMATOCRIT 28.4 % (35.0-51.0); LYMPH # 2.2 K/uL (1.0-4.3); MEAN CELL VOLUME 89.8 fL (80.0-94.0); MEAN CORPUSCULAR HEMOGLOBIN 30.7 pg (27.0-31.0); MEAN CORPUSCULAR HGB CONC 34.2 g/dL (33.0-37.0); MEAN PLATELET VOLUME 7.1 fL (7.2-11.7); MONO # 0.6 K/uL (0.0-0.8); MONO % 5.9 % (0.0-10.0); WHITE BLOOD COUNT 10.8 K/uL (4.8-10.8)
[2016-06-30 06:57] LABS: CHLORIDE 105 mmol/L (98-107); POTASSIUM 3.9 mmol/L (3.6-5.2); SODIUM 138 mmol/L (132-148)
[2016-06-30 07:00] LABS: BLOOD UREA NITROGEN 31 mg/dL (9-20); CARBON DIOXIDE 27 mmol/L (22-30); GFR AFRICAN-AMERICAN > 60; GLUCOSE,RANDOM 60 mg/dL (75-110); PHOSPHOROUS 3.4 mg/dL (2.5-4.5)
[2016-06-30 07:01] LABS: CALCIUM 8.7 mg/dl (8.6-10.4)
[2016-06-30] MEDS: (Novolog) Insulin Aspart, Recombinant 100 u/ml 10 ml vial SC SCH ×4 (08:12→21:32)
[2016-06-30] MEDS: Enoxaparin 40 mg Syringe SC SCH (10:19)
--- NOTE | 2016-06-30 11:11 | CARD ---
APPROVED REPORT EKG Measurement Heart [id number] <Conclusion> Sinus tachycardia Otherwise normal ECG
--- NOTE | 2016-06-30 11:12 | CARD ---
APPROVED REPORT EKG Measurement Heart [id number] <Conclusion> Sinus tachycardia Right bundle branch block Abnormal ECG
--- NOTE | 2016-06-30 11:20 | CP.CCUPN ---
<Sridevi Coulter - Last Filed: 06/30/16 11:28> CCU Subjective - Physician Review Subjective (Free Text): Patient was seen and examined at bedside. Anion gap is closed. Insulin drip was stopped, currently on levemir 16 SC QHS, high sliding scale, and started a diabetic diet. Patient transferred to MED/SURG. CCU Objective - Vital Signs / Intake & Output Vital Signs (Last 4 hours): Vital Signs Temp Pulse Resp BP Pulse Ox 06/30/16 10:00 79 17 121/65 98 06/30/16 08:00 97.6 F 81 16 103/58 L 100 Intake and Output (Last 8hrs): Intake & Output 06/29/16 06/30/16 06/30/16 22:59 06:59 14:59 Intake Total 1474 420 600 Output Total 700 750 450 Balance 774 -330 150 Intake: IV 21 Intake, IV Amount 1453 0 Left Forearm 28 0 Right Forearm 1425 0 Oral 420 600 Output: Urine 700 750 450 Urine, Voided 700 750 450 - Physical Exam Head: Positive for: Atraumatic, Normocephalic Pupils: Positive for: PERRL Extroacular Muscles: Positive for: EOMI Conjunctiva: Positive for: Normal Mouth: Positive for: Dry Respiratory/Chest: Positive for: Clear to Auscultation, Tachypneic Cardiovascular: Positive for: Tachycardic Abdomen: Positive for: Tenderness, Normal Bowel Sounds. Negative for: Distention Upper Extremity: Positive for: Normal Inspection, NORMAL PULSES. Negative for: Cyanosis, Edema Lower Extremity: Positive for: Normal Inspection, NORMAL PULSES. Negative for: Edema, CALF TENDERNESS Neurological: Positive for: GCS=15, CN II-XII Intact Skin: Positive for: Warm, Dry, Normal Color Psychiatric: Positive for: Alert, Lethargic - Medications Active Medications: Active Medications Generic Name Dose Route Start Last Admin Trade Name Freq PRN Reason Stop Dose Admin Aspirin 81 mg 06/30/16 10:06/30/16 10:19 Aspirin Chewable PO 81 mg DAILY JERROD Administration Clopidogrel Bisulfate 75 mg 06/30/16 10:00 06/30/16 10:19 Plavix PO 75 mg DAILY JERROD Administration Enoxaparin Sodium 40 mg 06/30/16 10:00 06/30/16 10:19 Lovenox SC 40 mg DAILY JERROD Administration Famotidine 20 mg 06/30/16 10:00 06/30/16 10:19 Pepcid IVP 20 mg DAILY JERROD Administration Insulin Aspart 0 unit 06/30/16 07:30 06/30/16 08:12 Novolog SC Not Given ACHS JERROD Protocol Insulin Detemir 16 unit 06/29/16 20:40 06/29/16 22:12 Levemir SC Not Given HS JERROD Ondansetron HCl 4 mg 06/29/16 10:13 Zofran Inj IVP Q6H PRN Nausea/Vomiting - Patient Studies Lab Studies: Lab Studies 06/30/16 06/30/16 06/30/16 Range/Units 08:36 07:48 06:31 WBC (4.8-10.8) K/uL RBC (4.40-5.90) Mil/uL Hgb (12.0-18.0) g/dL Hct (35.0-51.0) % MCV (80.0-94.0) fL MCH (27.0-31.0) pg MCHC (33.0-37.0) g/dL RDW (11.5-14.5) % Plt Count (130-400) K/uL MPV (7.2-11.7) fL Neut % (Auto) (50.0-75.0) % Lymph % (Auto) (20.0-40.0) % Hendricks % (Auto) (0.0-10.0) % Eos % (Auto) (0.0-4.0) % Baso % (Auto) (0.0-2.0) % Neut # (1.8-7.0) K/uL Lymph # (1.0-4.3) K/uL Hendricks # (0.0-0.8) K/uL Eos # (0.0-0.7) K/uL Baso # (0.0-0.2) K/uL Neutrophils % (Manual) (50-75) % Lymphocytes % (Manual) (20-40) % Monocytes % (Manual) (0-10) % Platelet Estimate (NORMAL) Hypochromasia (manual) Poikilocytosis (manual Anisocytosis (manual) Sodium 138 (132-148) mmol/L Potassium 3.9 (3.6-5.2) mmol/L Chloride 105 (98-107) mmol/L Carbon Dioxide 27 (22-30) mmol/L Anion Gap 10 (10-20) BUN 31 H (9-20) mg/dL Creatinine 1.1 (0.8-1.5) MG/DL Est GFR ( Amer) > 60 Est GFR (Non-Af Amer) > 60 POC Glucose (mg/dL) 116 H 68 (65-110) mg/dL Random Glucose 60 L (75-110) mg/dL Calcium 8.7 (8.6-10.4) mg/dl Phosphorus 3.4 (2.5-4.5) mg/dL Magnesium 2.0 (1.6-2.3) mg/dL Total Bilirubin (0.2-1.3) mg/dL AST (17-59) U/L ALT (21-72) U/L Alkaline Phosphatase (38-126) U/L Total Protein (6.3-8.3) g/dL Albumin (3.5-5.0) g/dL Globulin (2.2-3.9) gm/dL Albumin/Globulin Ratio (1.0-2.1) 06/30/16 06/30/16 06/29/16 Range/Units 06:24 06:22 21:23 WBC 10.8 (4.8-10.8) K/uL RBC 3.16 L (4.40-5.90) Mil/uL Hgb 9.7 L (12.0-18.0) g/dL Hct 28.4 L (35.0-51.0) % MCV 89.8 D (80.0-94.0) fL MCH 30.7 (27.0-31.0) pg MCHC 34.2 (33.0-37.0) g/dL RDW 13.0 (11.5-14.5) % Plt Count 353 (130-400) K/uL MPV 7.1 L (7.2-11.7) fL Neut % (Auto) 70.4 (50.0-75.0) % Lymph % (Auto) 20.0 (20.0-40.0) % Hendricks % (Auto) 5.9 (0.0-10.0) % Eos % (Auto) 2.8 (0.0-4.0) % Baso % (Auto) 0.9 (0.0-2.0) % Neut # 7.6 H (1.8-7.0) K/uL Lymph # 2.2 (1.0-4.3) K/uL Hendricks # 0.6 (0.0-0.8) K/uL Eos # 0.3 (0.0-0.7) K/uL Baso # 0.1 (0.0-0.2) K/uL Neutrophils % (Manual) (50-75) % Lymphocytes % (Manual) (20-40) % Monocytes % (Manual) (0-10) % Platelet Estimate (NORMAL) Hypochromasia (manual) Poikilocytosis (manual Anisocytosis (manual) Sodium (132-148) mmol/L Potassium (3.6-5.2) mmol/L Chloride (98-107) mmol/L Carbon Dioxide (22-30) mmol/L Anion Gap (10-20) BUN (9-20) mg/dL Creatinine (0.8-1.5) MG/DL Est GFR ( Amer) Est GFR (Non-Af Amer) POC Glucose (mg/dL) 75 239 H (65-110) mg/dL Random Glucose (75-110) mg/dL Calcium (8.6-10.4) mg/dl Phosphorus (2.5-4.5) mg/dL Magnesium (1.6-2.3) mg/dL Total Bilirubin (0.2-1.3) mg/dL AST (17-59) U/L ALT (21-72) U/L Alkaline Phosphatase (38-126) U/L Total Protein (6.3-8.3) g/dL Albumin (3.5-5.0) g/dL Globulin (2.2-3.9) gm/dL Albumin/Globulin Ratio (1.0-2.1) 06/29/16 06/29/16 06/29/16 Range/Units 20:42 20:26 19:09 WBC (4.8-10.8) K/uL RBC (4.40-5.90) Mil/uL Hgb (12.0-18.0) g/dL Hct (35.0-51.0) % MCV (80.0-94.0) fL MCH (27.0-31.0) pg MCHC (33.0-37.0) g/dL RDW (11.5-14.5) % Plt Count (130-400) K/uL MPV (7.2-11.7) fL Neut % (Auto) (50.0-75.0) % Lymph % (Auto) (20.0-40.0) % Hendricks % (Auto) (0.0-10.0) % Eos % (Auto) (0.0-4.0) % Baso % (Auto) (0.0-2.0) % Neut # (1.8-7.0) K/uL Lymph # (1.0-4.3) K/uL Hendricks # (0.0-0.8) K/uL Eos # (0.0-0.7) K/uL Baso # (0.0-0.2) K/uL Neutrophils % (Manual) (50-75) % Lymphocytes % (Manual) (20-40) % Monocytes % (Manual) (0-10) % Platelet Estimate (NORMAL) Hypochromasia (manual) Poikilocytosis (manual Anisocytosis (manual) Sodium 136 (132-148) mmol/L Potassium 4.6 (3.6-5.2) mmol/L Chloride 103 (98-107) mmol/L Carbon Dioxide 24 (22-30) mmol/L Anion Gap 14 (10-20) BUN 37 H (9-20) mg/dL Creatinine 1.5 (0.8-1.5) MG/DL Est GFR ( Amer) > 60 Est GFR (Non-Af Amer) 50 POC Glucose (mg/dL) 273 H 177 H (65-110) mg/dL Random Glucose 210 H (75-110) mg/dL Calcium 8.5 L (8.6-10.4) mg/dl Phosphorus (2.5-4.5) mg/dL Magnesium (1.6-2.3) mg/dL Total Bilirubin (0.2-1.3) mg/dL AST (17-59) U/L ALT (21-72) U/L Alkaline Phosphatase (38-126) U/L Total Protein (6.3-8.3) g/dL Albumin (3.5-5.0) g/dL Globulin (2.2-3.9) gm/dL Albumin/Globulin Ratio (1.0-2.1) 06/29/16 06/29/16 06/29/16 Range/Units 18:01 17:08 16:12 WBC (4.8-10.8) K/uL RBC (4.40-5.90) Mil/uL Hgb (12.0-18.0) g/dL Hct (35.0-51.0) % MCV (80.0-94.0) fL MCH (27.0-31.0) pg MCHC (33.0-37.0) g/dL RDW (11.5-14.5) % Plt Count (130-400) K/uL MPV (7.2-11.7) fL Neut % (Auto) (50.0-75.0) % Lymph % (Auto) (20.0-40.0) % Hendricks % (Auto) (0.0-10.0) % Eos % (Auto) (0.0-4.0) % Baso % (Auto) (0.0-2.0) % Neut # (1.8-7.0) K/uL Lymph # (1.0-4.3) K/uL Hendricks # (0.0-0.8) K/uL Eos # (0.0-0.7) K/uL Baso # (0.0-0.2) K/uL Neutrophils % (Manual) (50-75) % Lymphocytes % (Manual) (20-40) % Monocytes % (Manual) (0-10) % Platelet Estimate (NORMAL) Hypochromasia (manual) Poikilocytosis (manual Anisocytosis (manual) Sodium (132-148) mmol/L Potassium (3.6-5.2) mmol/L Chloride (98-107) mmol/L Carbon Dioxide (22-30) mmol/L Anion Gap (10-20) BUN (9-20) mg/dL Creatinine (0.8-1.5) MG/DL Est GFR ( Amer) Est GFR (Non-Af Amer) POC Glucose (mg/dL) 170 H 249 H 383 H (65-110) mg/dL Random Glucose (75-110) mg/dL Calcium (8.6-10.4) mg/dl Phosphorus (2.5-4.5) mg/dL Magnesium (1.6-2.3) mg/dL Total Bilirubin (0.2-1.3) mg/dL AST (17-59) U/L ALT (21-72) U/L Alkaline Phosphatase (38-126) U/L Total Protein (6.3-8.3) g/dL Albumin (3.5-5.0) g/dL Globulin (2.2-3.9) gm/dL Albumin/Globulin Ratio (1.0-2.1) 06/29/16 06/29/16 06/29/16 Range/Units 15:16 14:40 13:58 WBC (4.8-10.8) K/uL RBC (4.40-5.90) Mil/uL Hgb (12.0-18.0) g/dL Hct (35.0-51.0) % MCV (80.0-94.0) fL MCH (27.0-31.0) pg MCHC (33.0-37.0) g/dL RDW (11.5-14.5) % Plt Count (130-400) K/uL MPV (7.2-11.7) fL Neut % (Auto) (50.0-75.0) % Lymph % (Auto) (20.0-40.0) % Hendricks % (Auto) (0.0-10.0) % Eos % (Auto) (0.0-4.0) % Baso % (Auto) (0.0-2.0) % Neut # (1.8-7.0) K/uL Lymph # (1.0-4.3) K/uL Hendricks # (0.0-0.8) K/uL Eos # (0.0-0.7) K/uL Baso # (0.0-0.2) K/uL Neutrophils % (Manual) (50-75) % Lymphocytes % (Manual) (20-40) % Monocytes % (Manual) (0-10) % Platelet Estimate (NORMAL) Hypochromasia (manual) Poikilocytosis (manual Anisocytosis (manual) Sodium 135 (132-148) mmol/L Potassium 4.9 (3.6-5.2) mmol/L Chloride 100 (98-107) mmol/L Carbon Dioxide 16 L (22-30) mmol/L Anion Gap 24 H (10-20) BUN 44 H (9-20) mg/dL Creatinine 1.8 H (0.8-1.5) MG/DL Est GFR ( Amer) 49 Est GFR (Non-Af Amer) 40 POC Glucose (mg/dL) 370 H 436 H* (65-110) mg/dL Random Glucose 373 H (75-110) mg/dL Calcium 8.7 (8.6-10.4) mg/dl Phosphorus 4.3 (2.5-4.5) mg/dL Magnesium 2.3 (1.6-2.3) mg/dL Total Bilirubin 0.8 (0.2-1.3) mg/dL AST 69 H (17-59) U/L ALT 270 H (21-72) U/L Alkaline Phosphatase 131 H D (38-126) U/L Total Protein 6.3 (6.3-8.3) g/dL Albumin 3.7 (3.5-5.0) g/dL Globulin 2.6 (2.2-3.9) gm/dL Albumin/Globulin Ratio 1.4 (1.0-2.1) 06/29/16 06/29/16 06/29/16 Range/Units 12:10 11:29 11:29 WBC 19.1 H (4.8-10.8) K/uL RBC 3.22 L (4.40-5.90) Mil/uL Hgb 9.7 L (12.0-18.0) g/dL Hct 30.3 L (35.0-51.0) % MCV 94.3 H D (80.0-94.0) fL MCH 30.2 (27.0-31.0) pg MCHC 32.0 L (33.0-37.0) g/dL RDW 12.9 (11.5-14.5) % Plt Count 387 (130-400) K/uL MPV 7.7 (7.2-11.7) fL Neut % (Auto) 89.9 H (50.0-75.0) % Lymph % (Auto) 3.6 L (20.0-40.0) % Hendricks % (Auto) 6.2 (0.0-10.0) % Eos % (Auto) 0.0 (0.0-4.0) % Baso % (Auto) 0.3 (0.0-2.0) % Neut # 17.2 H (1.8-7.0) K/uL Lymph # 0.7 L (1.0-4.3) K/uL Hendricks # 1.2 H (0.0-0.8) K/uL Eos # 0.0 (0.0-0.7) K/uL Baso # 0.1 (0.0-0.2) K/uL Neutrophils % (Manual) 92 H (50-75) % Lymphocytes % (Manual) 2 L (20-40) % Monocytes % (Manual) 6 (0-10) % Platelet Estimate Normal (NORMAL) Hypochromasia (manual) Slight Poikilocytosis (manual Slight Anisocytosis (manual) Slight Sodium 132 (132-148) mmol/L Potassium 5.2 (3.6-5.2) mmol/L Chloride 95 L (98-107) mmol/L Carbon Dioxide 7 L* D (22-30) mmol/L Anion Gap 35 H (10-20) BUN 42 H (9-20) mg/dL Creatinine 2.0 H (0.8-1.5) MG/DL Est GFR ( Amer) 43 Est GFR (Non-Af Amer) 36 POC Glucose (mg/dL) > 500 H* (65-110) mg/dL Random Glucose 722 H* D (75-110) mg/dL Calcium 8.5 L (8.6-10.4) mg/dl Phosphorus 5.9 H (2.5-4.5) mg/dL Magnesium 2.4 H (1.6-2.3) mg/dL Total Bilirubin (0.2-1.3) mg/dL AST (17-59) U/L ALT (21-72) U/L Alkaline Phosphatase (38-126) U/L Total Protein (6.3-8.3) g/dL Albumin (3.5-5.0) g/dL Globulin (2.2-3.9) gm/dL Albumin/Globulin Ratio (1.0-2.1) 06/29/16 Range/Units 11:10 WBC (4.8-10.8) K/uL RBC (4.40-5.90) Mil/uL Hgb (12.0-18.0) g/dL Hct (35.0-51.0) % MCV (80.0-94.0) fL MCH (27.0-31.0) pg MCHC (33.0-37.0) g/dL RDW (11.5-14.5) % Plt Count (130-400) K/uL MPV (7.2-11.7) fL Neut % (Auto) (50.0-75.0) % Lymph % (Auto) (20.0-40.0) % Hendricks % (Auto) (0.0-10.0) % Eos % (Auto) (0.0-4.0) % Baso % (Auto) (0.0-2.0) % Neut # (1.8-7.0) K/uL Lymph # (1.0-4.3) K/uL Hendricks # (0.0-0.8) K/uL Eos # (0.0-0.7) K/uL Baso # (0.0-0.2) K/uL Neutrophils % (Manual) (50-75) % Lymphocytes % (Manual) (20-40) % Monocytes % (Manual) (0-10) % Platelet Estimate (NORMAL) Hypochromasia (manual) Poikilocytosis (manual Anisocytosis (manual) Sodium (132-148) mmol/L Potassium (3.6-5.2) mmol/L Chloride (98-107) mmol/L Carbon Dioxide (22-30) mmol/L Anion Gap (10-20) BUN (9-20) mg/dL Creatinine (0.8-1.5) MG/DL Est GFR ( Amer) Est GFR (Non-Af Amer) POC Glucose (mg/dL) > 500 H* (65-110) mg/dL Random Glucose (75-110) mg/dL Calcium (8.6-10.4) mg/dl Phosphorus (2.5-4.5) mg/dL Magnesium (1.6-2.3) mg/dL Total Bilirubin (0.2-1.3) mg/dL AST (17-59) U/L ALT (21-72) U/L Alkaline Phosphatase (38-126) U/L Total Protein (6.3-8.3) g/dL Albumin (3.5-5.0) g/dL Globulin (2.2-3.9) gm/dL Albumin/Globulin Ratio (1.0-2.1) Laboratory Results - last 24 hr 06/29/16 06/29/16 06/29/16 11:10 11:29 11:29 WBC 19.1 H RBC 3.22 L Hgb 9.7 L Hct 30.3 L MCV 94.3 H D MCH 30.2 MCHC 32.0 L RDW 12.9 Plt Count 387 MPV 7.7 Neut % (Auto) 89.9 H Lymph % (Auto) 3.6 L Hendricks % (Auto) 6.2 Eos % (Auto) 0.0 Baso % (Auto) 0.3 Neut # 17.2 H Lymph # 0.7 L Hendricks # 1.2 H Eos # 0.0 Baso # 0.1 Neutrophils % (Manual) 92 H Lymphocytes % (Manual) 2 L Monocytes % (Manual) 6 Platelet Estimate Normal Hypochromasia (manual) Slight Poikilocytosis (manual Slight Anisocytosis (manual) Slight Sodium 132 Potassium 5.2 Chloride 95 L Carbon Dioxide 7 L* D Anion Gap 35 H BUN 42 H Creatinine 2.0 H Est GFR ( Amer) 43 Est GFR (Non-Af Amer) 36 POC Glucose (mg/dL) > 500 H* Random Glucose 722 H* D Calcium 8.5 L Phosphorus 5.9 H Magnesium 2.4 H Total Bilirubin AST ALT Alkaline Phosphatase Total Protein Albumin Globulin Albumin/Globulin Ratio 06/29/16 06/29/16 06/29/16 12:10 13:58 14:40 WBC RBC Hgb Hct MCV MCH MCHC RDW Plt Count MPV Neut % (Auto) Lymph % (Auto) Hendricks % (Auto) Eos % (Auto) Baso % (Auto) Neut # Lymph # Hendricks # Eos # Baso # Neutrophils % (Manual) Lymphocytes % (Manual) Monocytes % (Manual) Platelet Estimate Hypochromasia (manual) Poikilocytosis (manual Anisocytosis (manual) Sodium 135 Potassium 4.9 Chloride 100 Carbon Dioxide 16 L Anion Gap 24 H BUN 44 H Creatinine 1.8 H Est GFR ( Amer) 49 Est GFR (Non-Af Amer) 40 POC Glucose (mg/dL) > 500 H* 436 H* Random Glucose 373 H Calcium 8.7 Phosphorus 4.3 Magnesium 2.3 Total Bilirubin 0.8 AST 69 H ALT 270 H Alkaline Phosphatase 131 H D Total Protein 6.3 Albumin 3.7 Globulin 2.6 Albumin/Globulin Ratio 1.4 06/29/16 06/29/16 06/29/16 15:16 16:12 17:08 WBC RBC Hgb Hct MCV MCH MCHC RDW Plt Count MPV Neut % (Auto) Lymph % (Auto) Hendricks % (Auto) Eos % (Auto) Baso % (Auto) Neut # Lymph # Hendricks # Eos # Baso # Neutrophils % (Manual) Lymphocytes % (Manual) Monocytes % (Manual) Platelet Estimate Hypochromasia (manual) Poikilocytosis (manual Anisocytosis (manual) Sodium Potassium Chloride Carbon Dioxide Anion Gap BUN Creatinine Est GFR ( Amer) Est GFR (Non-Af Amer) POC Glucose (mg/dL) 370 H 383 H 249 H Random Glucose Calcium Phosphorus Magnesium Total Bilirubin AST ALT Alkaline Phosphatase Total Protein Albumin Globulin Albumin/Globulin Ratio 06/29/16 06/29/16 06/29/16 18:01 19:09 20:26 WBC RBC Hgb Hct MCV MCH MCHC RDW Plt Count MPV Neut % (Auto) Lymph % (Auto) Hendricks % (Auto) Eos % (Auto) Baso % (Auto) Neut # Lymph # Hendricks # Eos # Baso # Neutrophils % (Manual) Lymphocytes % (Manual) Monocytes % (Manual) Platelet Estimate Hypochromasia (manual) Poikilocytosis (manual Anisocytosis (manual) Sodium Potassium Chloride Carbon Dioxide Anion Gap BUN Creatinine Est GFR ( Amer) Est GFR (Non-Af Amer) POC Glucose (mg/dL) 170 H 177 H 273 H Random Glucose Calcium Phosphorus Magnesium Total Bilirubin AST ALT Alkaline Phosphatase Total Protein Albumin Globulin Albumin/Globulin Ratio 06/29/16 06/29/16 06/30/16 20:42 21:23 06:22 WBC RBC Hgb Hct MCV MCH MCHC RDW Plt Count MPV Neut % (Auto) Lymph % (Auto) Hendricks % (Auto) Eos % (Auto) Baso % (Auto) Neut # Lymph # Hendricks # Eos # Baso # Neutrophils % (Manual) Lymphocytes % (Manual) Monocytes % (Manual) Platelet Estimate Hypochromasia (manual) Poikilocytosis (manual Anisocytosis (manual) Sodium 136 Potassium 4.6 Chloride 103 Carbon Dioxide 24 Anion Gap 14 BUN 37 H Creatinine 1.5 Est GFR ( Amer) > 60 Est GFR (Non-Af Amer) 50 POC Glucose (mg/dL) 239 H 75 Random Glucose 210 H Calcium 8.5 L Phosphorus Magnesium Total Bilirubin AST ALT Alkaline Phosphatase Total Protein Albumin Globulin Albumin/Globulin Ratio 06/30/16 06/30/16 06/30/16 06:24 06:31 07:48 WBC 10.8 RBC 3.16 L Hgb 9.7 L Hct 28.4 L MCV 89.8 D MCH 30.7 MCHC 34.2 RDW 13.0 Plt Count 353 MPV 7.1 L Neut % (Auto) 70.4 Lymph % (Auto) 20.0 Hendricks % (Auto) 5.9 Eos % (Auto) 2.8 Baso % (Auto) 0.9 Neut # 7.6 H Lymph # 2.2 Hendricks # 0.6 Eos # 0.3 Baso # 0.1 Neutrophils % (Manual) Lymphocytes % (Manual) Monocytes % (Manual) Platelet Estimate Hypochromasia (manual) Poikilocytosis (manual Anisocytosis (manual) Sodium 138 Potassium 3.9 Chloride 105 Carbon Dioxide 27 Anion Gap 10 BUN 31 H Creatinine 1.1 Est GFR ( Amer) > 60 Est GFR (Non-Af Amer) > 60 POC Glucose (mg/dL) 68 Random Glucose 60 L Calcium 8.7 Phosphorus 3.4 Magnesium 2.0 Total Bilirubin AST ALT Alkaline Phosphatase Total Protein Albumin Globulin Albumin/Globulin Ratio 06/30/16 08:36 WBC RBC Hgb Hct MCV MCH MCHC RDW Plt Count MPV Neut % (Auto) Lymph % (Auto) Hendricks % (Auto) Eos % (Auto) Baso % (Auto) Neut # Lymph # Hendricks # Eos # Baso # Neutrophils % (Manual) Lymphocytes % (Manual) Monocytes % (Manual) Platelet Estimate Hypochromasia (manual) Poikilocytosis (manual Anisocytosis (manual) Sodium Potassium Chloride Carbon Dioxide Anion Gap BUN Creatinine Est GFR ( Amer) Est GFR (Non-Af Amer) POC Glucose (mg/dL) 116 H Random Glucose Calcium Phosphorus Magnesium Total Bilirubin AST ALT Alkaline Phosphatase Total Protein Albumin Globulin Albumin/Globulin Ratio Fingerstick Blood Sugar Results: 239 Critical Care Progress Note - Nutrition Nutrition: Nutrition Category Date Time Status Diabetic [Consistent Carbohydrate] [DIET] Diets 06/29/16 Dinner Active Assessment/Plan - Assessment and Plan (Free Text) Assessment: 50 M with PMHx IDDM, HTN, CVA, and CAD presented to the ED with DKA. Plan: DKA * On admission: Sugars 1147, Metabolic acidosis on ABG, pH of 7.16, with anion gap of 33. * Started on Insulin Drip @ 5 units with a titrating protocol * Accuchecks Q1H, BMP Q4H * NS @ 250 cc/hr * Anion gap is closed. Insulin drip was stopped, currently on levemir 16 SC QHS , high sliding scale, and started a diabetic diet. * Zofran PRN Hx HTN * Monitor * HELD home medication: Lisinopril 20mg PO QD * Patient is currently hypotensive Hx CVA * CT head (06/12/16): 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, scattered nonspecific white matter changes CAD * Echo 06/12/16: w/normal LV systolic function, diastolic dysfunction, Trace MR, trace-mild TR, EF 67% * Resumed home meds: ASA 81mg PO daily, Plavix 75mg daily Prophylactic Measures * GI PPX: Pepcid 20mg IVP daily * DVT PPX: Lovenox 40mg SC Patient transferred to MED/SURG. DW Yfn Hopkins DO, PGY-1 <Daniel Hopkins S - Last Filed: 07/28/16 11:52> Critical Care Progress Note - Nutrition Nutrition: Nutrition Category Date Time Status Diabetic [Consistent Carbohydrate] [DIET] Diets 06/29/16 Dinner Active Attending/Attestation - Attestation I have personally seen and examined this patient.: Yes I have fully participated in the care of the patient.: Yes I have reviewed all pertinent clinical information: Yes Notes (Text): 50 M with PMHx IDDM, HTN, CVA, and CAD presented to the ED with DKA. DKA resolved with normal anion gap and insulin drip stopped Transfer patient
[2016-06-30 13:56] VITALS: RESP 20
--- NOTE | 2016-06-30 15:04 | PCM.PSYCH ---
Initial Psychiatric Evaluation - Initial Psychiatric Evaluation Type of Admission: Voluntary Legal Status: Capacity Chief Complaint (in patient's own words): I vomited on and off for 3 hours History of Present Illness and Precipitating Events: 50 y/o m currently living in a hotel, single, on disability with a psychiatric history of depression, ADHD, anxiety and compulsive buying disorder and a PMH of hemorrhagic stroke and DM1. Pt also has a history of medication noncompliance. Admitted for DKA for the third time this month. Pt states that he would never consciously stop taking his insulin medication since he loves himself. He states that his glucose is elevated due to hypertrophy and blockage of the insulin pump infusion site. He also says that his first DKA admission resulted after he went to [place] to visit his sister, and unintentionally forgot the insulin in his car. 2 months after returning from [place], he started using the insulin without realizing that it went bad. The second time he was admitted for DKA was due to a defect in his insulin pump reservoir which is made of plastic that when mixed with insulin causes a chemical reaction. Pt says that he sees dr. Robbins for his psychiatric problems. He states that he tries to deal with his depression by going to jainism instead of taking his medications. Pt has a history of incarceration, however he claims that his identity was stolen and he was wrongfully convicted. Pt appears superficially cooperative but guarded about the details. He states that his mood good. Pt complain of dizziness whenever he tries to get up, and nausea however he denies vomiting. He also complains of a headache 8/10. He denies auditory or visual hallucinations or suicidal ideation. 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 Denies any depressed mood any feelings of hopelessness and helplessness. He denies any suicidal ideation or homicidal ideation. Current Medications: Active Medications Generic Name Dose Route Start Last Admin Trade Name Sayra PRN Reason Stop Dose Admin Aspirin 81 mg 06/30/16 10:06/30/16 10:19 Aspirin Chewable PO 81 mg DAILY JERROD Administration Clopidogrel Bisulfate 75 mg 06/30/16 10:00 06/30/16 10:19 Plavix PO 75 mg DAILY JERROD Administration Enoxaparin Sodium 40 mg 06/30/16 10:00 06/30/16 10:19 Lovenox SC 40 mg DAILY JERROD Administration Famotidine 20 mg 06/30/16 10:00 06/30/16 10:19 Pepcid IVP 20 mg DAILY JERROD Administration Insulin Aspart 0 unit 06/30/16 07:30 06/30/16 11:46 Novolog SC 12 unit ACHS JERROD Administration Protocol Insulin Detemir 16 unit 06/29/16 20:40 06/29/16 22:12 Levemir SC Not Given HS [facility] Ondansetron HCl 4 mg 06/29/16 10:13 Zofran Inj IVP Q6H PRN Nausea/Vomiting Past Psychiatric History - Past Psychiatric History Previous Treatment History: None Pertinent Medical Hx (Current Medical&Sleep Prob, Allergies): Allergies Allergy/AdvReac Type Severity Reaction Status Date / Time No Known Allergies Allergy Verified 06/20/16 23:55 Folic Acid 1 mg PO DAILY 06/13/16 Pantoprazole Sodium [Protonix] 40 mg PO DAILY 06/13/16 Aspirin [Aspirin Chewable] 81 mg PO DAILY 06/22/16 Clopidogrel [Plavix] 75 mg PO DAILY #30 06/22/16 DULoxetine [Cymbalta] 20 mg PO DAILY 30 Days 06/22/16 Folic Acid 1 mg PO DAILY tab 06/22/16 Insulin Aspart, Recombinant [Novolog] 20 unit SC ACHS #2 vial 06/22/16 Insulin Glargine, Recombina [Lantus] 24 unit SC HS #1 vial 06/22/16 Lisinopril 20 mg PO DAILY #30 06/22/16 Metoprolol Tartrate 25 mg PO DAILY 06/30/16 Review of Systems - Review of Systems All systems: reviewed and no additional remarkable complaints except - Psychiatric Psychiatric: Anxiety, Irritability. absent: Auditory Hallucinations, Suicidal Ideation Mental Status Examination - Personal Presentation Personal Presentation: Looks stated age - Affect Affect: Broad - Motor Activity Motor Activity: Calm - Reliability in Providing Information Reliability in Providing Information: Poor, due to altered mood - Speech Speech: Organized - Mood Mood: Anxious - Formal Thought Process Formal Thought Process: No Impairment - Obsessions/Compulsions Obsessions: No Compulsions: No - Cognitive Functions Orientation: Person, Place, Situation, Time Sensorium: Alert Attention/Concentration: Attentive Abstract Thinking: [place] Estimate of Intelligence: Below average Judgement: Imparied, as evidence by: Poor judgement, Intact, as evidence by: Insight regarding need for hospitalization - Risk Risk: Diminished functioning - Strength & Assets Inventory Strength & Assets Inventory: Cooperative DSM 5 DX - DSM 5 DSM 5 Diagnosis: Adjustment d/o with depressed mood R/O Bipolar disorder mixed mild - Recommended/Plan of Treatment Treatment Recommendations and Plan of Treatment: Adjustment d/o with depressed mood R/O Bipolar disorder mixed mild CBT Psychoeducation Supportive therapy, group therapy, individual therapy Cymbalta 20 mg by mouth daily Neurontin 100 mg by mouth 3 times a day Trazodone 50 mg by mouth daily at bedtime - Smoking Cessation Smoking Cessation Initiated: No
--- NOTE | 2016-06-30 18:48 | CP.PCM.PN ---
Subjective - Date & Time of Evaluation Date of Evaluation: 06/30/16 Time of Evaluation: 17:00 - Subjective Subjective: Hospitalist Progress Note (Patient was seen and examined at 5 PM 06/30/16 350A) 50M with PMHx of DM type 1 presented to the ED 06/29/16 complaining of nausea, vomiting, and diarrhea x 1 day. Patient has history of uncontrolled IDDM, is noncompliant with his medications. He was found to be in DKA for the 3rd time in one month time. He was admitted to the ICU for further managment and transferred out to the regular medical floor once the anion gap resolved. Currently upon FULL ROS he complains of diarrhea. NO chest pain, NO palpitations , NO SOB/Cough/Wheezing, NO abdominal pain, NO n/v/c, NO burning/pain with urination, NO lightheadedness/dizziness, NO headaches, NO new changes in vision/ eye pain, NO new changes in hearing/ear pain, NO paresthesias, NO edema Exam: HEENT: NCA, EOMI, PERRLA, NO cervical/submandibular/supraclavicular lymphadenopathy, Oral Mucosa and Nasal Turbinates are dry, NO thyromegaly Cardiology: NS1 and NS2, NO M/R/G Respiratory: CTA B/L, NO R/R/W GI: BSx4, Soft, NT, Central Obesity, NO HSM, NO guarding/rebound tenderness Ext: Pulses are strong and equal, NO edema, Capillary Refill is 2 seconds Neuro: CN II through XII are grossly intact Assessment and Plan: 1). DKA Anion Gap has resolved Levemir 16 units SQ QHS Aspart ISS Diabetic Diet 2). HTN On Metoprolol 25 mg PO 1x/day and Lisinopril 20 mg PO 1x/day however these are being held as blood pressure is currently controlled. 3). Hx CVA with left sided residual weekness ASA 81 mg PO 1x/day Plavix 75 mg PO 1x/day NO statins for now considering the Elevated LFTs which are improving 4). Hx CAD (04/2016) Please see Assessment and Plan #3 5). Adjustment Disorder with Depressed Mood Psychiatry Dr. Whalen help is appreciated Cymbalta 20 mg PO 1x/day Gabapentin 100 mg PO TID Trazodone 5 mg PO QHS 6). Leukocytosis This is likely reactive Resolved 7). Prophylactic Measure Lovenox 40 mg SC 1x/day Pepcid 20 mg PO 1x/day Zofran 4 mg IV Q6H PRN N/V I believe the diarrhea could have been secondary to the DKA, however stool cultures have been ordered. Yimi Tracey D.O. Objective - Vital Signs/Intake and Output Vital Signs (last 24 hours): Temp Pulse Resp BP Pulse Ox 98.3 F 78 20 126/72 97 06/30/16 15:00 06/30/16 15:00 06/30/16 15:00 06/30/16 15:00 06/30/16 15:00 Intake and Output: 06/30/16 06/30/16 06:59 18:59 Intake Total 959 600 Output Total 1050 550 Balance -91 50 - Medications Medications: Current Medications Aspirin (Aspirin Chewable) 81 mg PO DAILY [facility] Last Admin: 06/30/16 10:19 Dose: 81 mg Clopidogrel Bisulfate (Plavix) 75 mg PO DAILY [facility] Last Admin: 06/30/16 10:19 Dose: 75 mg Duloxetine HCl (Cymbalta) 20 mg PO DAILY [facility] Enoxaparin Sodium (Lovenox) 40 mg SC DAILY [facility] Last Admin: 06/30/16 10:19 Dose: 40 mg Famotidine (Pepcid) 20 mg IVP DAILY [facility] Last Admin: 06/30/16 10:19 Dose: 20 mg Gabapentin (Neurontin) 100 mg PO TID [facility] Last Admin: 06/30/16 17:34 Dose: 100 mg Insulin Aspart (Novolog) 0 unit SC [facility] PRN Reason: Protocol Last Admin: 06/30/16 16:30 Dose: 14 unit Insulin Detemir (Levemir) 16 unit SC [facility] Last Admin: 06/29/16 22:12 Dose: Not Given Ondansetron HCl (Zofran Inj) 4 mg IVP Q6H PRN PRN Reason: Nausea/Vomiting Trazodone HCl (Desyrel) 50 mg PO HS [facility] - Labs Labs: 06/30/16 06:24 06/30/16 06:31
[2016-06-30] MEDS: Insulin Detemir 100 units/ml Vial (Levemir) SC SCH (21:33)
[2016-07-01] MEDS: (Novolog) Insulin Aspart, Recombinant 100 u/ml 10 ml vial SC SCH (07:33)
[2016-07-01 07:53] LABS: EOS # 0.3 K/uL (0.0-0.7); EOS % 6.2 % (0.0-4.0); HEMATOCRIT 29.7 % (35.0-51.0); LYMPH # 1.3 K/uL (1.0-4.3); LYMPH % 25.4 % (20.0-40.0); MEAN CELL VOLUME 90.3 fL (80.0-94.0); MEAN CORPUSCULAR HEMOGLOBIN 30.5 pg (27.0-31.0); MEAN CORPUSCULAR HGB CONC 33.7 g/dL (33.0-37.0); MEAN PLATELET VOLUME 7.5 fL (7.2-11.7); MONO # 0.3 K/uL (0.0-0.8); MONO % 6.2 % (0.0-10.0); RED CELL DISTRIBUTION WIDTH 13.2 % (11.5-14.5); WHITE BLOOD COUNT 5.1 K/uL (4.8-10.8)
[2016-07-01 08:14] LABS: CHLORIDE 103 mmol/L (98-107); POTASSIUM 3.7 mmol/L (3.6-5.2); SODIUM 141 mmol/L (132-148)
[2016-07-01 08:16] LABS: GFR AFRICAN-AMERICAN > 60
[2016-07-01 08:17] LABS: ALB/GLOB RATIO 1.4 (1.0-2.1); ALKALINE PHOSPHATASE 127 U/L (38-126); ALT/SGPT 221 U/L (21-72); AST/SGOT 104 U/L (17-59); BILIRUBIN,TOTAL 0.5 mg/dL (0.2-1.3); BLOOD UREA NITROGEN 17 mg/dL (9-20); CALCIUM 9.2 mg/dl (8.6-10.4); CARBON DIOXIDE 28 mmol/L (22-30); GLUCOSE,RANDOM 72 mg/dL (75-110); TOTAL PROTEIN 6.4 g/dL (6.3-8.3)
[2016-07-01] MEDS: Enoxaparin 40 mg Syringe SC SCH (10:33)
[2016-07-01] MEDS ORDERED: (Novolin R) Insulin Human Regular 100 units/ml vial SC SCH (11:30)
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
[2016-07-01] MEDS: (Novolin R) Insulin Human Regular 100 units/ml vial SC SCH ×2 (17:30→21:49)
[2016-07-01] MEDS: (Novolin 70/30) NPH/Regular 70/30 Units/ml 10 ml vial SC SCH (17:30)
[2016-07-01] MEDS ORDERED: (Novolin N) Insulin Human Isophane (NPH) 100 u/ml 10 ml vial SC SCH (22:00)
[2016-07-01] MEDS ORDERED: Insulin Detemir 100 units/ml Vial (Levemir) SC SCH (22:00)
--- NOTE | 2016-07-01 23:50 | CON ---
DATE: 07/01/2016 ROOM: 359. HISTORY OF PRESENT ILLNESS: This is a 50-year-old male with known history of type 1 insulin-dependen t diabetes, currently off his insulin pump because of financial constraints and lack of medical insur isidra, who presented with generalized body weakness and supervening diabetic ketoacidosis and dehydrat ion and is now being referred for diabetic evaluation and management. He has been seen twice on [facility] consults with the same readmission for DKA because of nonavailability of his insulin galeas pplies. PAST MEDICAL HISTORY: As mentioned above, history of type 1 insulin-dependent diabetes, currently of f insulin at this time. He was previously on a [employer] insulin pump, but apparently ran out of [employer] insurance and has, since then, been unable to obtain his insulin vitals. History of hypertensi ve cardiovascular disease and dyslipidemia, history of diabetic retinopathy, polyneuropathy and also has history of coronary artery disease with previous myocardial infarction. He also has history of c erebrovascular disease with a prior hemorrhagic cerebrovascular accident in 2013 with residual left-s ided weakness as noted. History of chronic migraine headaches with impaired visual acuity. FAMILY HISTORY: Positive for diabetes and hypertension. SOCIAL HISTORY: The patient denies any substance use. Admits to social use of alcohol. Also, has h ad served penitentiary time for almost a month this past year as noted. REVIEW OF SYSTEMS: Admits to generalized body weakness with progressive bouts of dizziness and light headedness, worse on the day of admission. No chest pains or palpitations or PNDs. His oral intake is variable with nausea, dyspepsia and episodic vomiting episodes. Also, admits to marked polyuria, nocturia, polydipsia, and about 10 pounds or so weight loss. PHYSICAL EXAMINATION: GENERAL: An average built male in no apparent distress. VITAL SIGNS: Blood pressure of 140/80, pulse of 70 beats per minute and regular, temperature 98, res pirations 20. Height is 5 feet 6 inches, weight is 190 pounds. HEENT: Head normocephalic. Eyes anicteric with pink conjunctivae. Fundoscopy not possible at this time. Ears, nose and throat otherwise normal. NECK: Supple. Thyroid gland is normal size. No carotid bruits. No cervical adenopathy. CARDIOPULMONARY: Some adynamic precordium. S1, S2 is rapid and regular. LUNGS: Clear to auscultation. ABDOMEN: Flat, soft with positive bowel sounds. EXTREMITIES: No peripheral edema. Pulses are +2 bilaterally. LABORATORY DATA: The initial chemistries showed a BUN of 42, sodium 132, potassium 5.2, chloride 95, CO2 7, glucose 722, and creatinine 2.0. CO2 now is 28 with fluctuating glycemic levels ranging from 259 to 330 mg/dL. ASSESSMENT: This is a 50-year-old male with uncontrolled and decompensated type 1 insulin-dependent diabetes, presenting here with diabetic ketoacidosis and dehydration related to drug omission with in sulin therapy because of financial constraints and loss of medical insurance. He also has diabetic m icrovascular complications of retinopathy and polyneuropathy with diabetic macrovascular complication s of coronary artery disease and cerebrovascular disease with residual left hemiplegia. He also has diabetic vasculopathy and peripheral arterial disease. Moreover, he has elevated liver transaminases , the etiology of which has to be ascertained at this time. PLAN OF MANAGEMENT: We will modify his current insulin regimen and actually, because of financial li mitations, we will discontinue the insulin analogs such as NovoLog or Levemir because of the extremel y formidable expense of these lower insulin preparations, which are actually more effective and more convenient for patient use, but, because of the triple bailey of these aforementioned, we will switch him over to more conventional insulin regimen protocol. We will do more conventional insulin vials a nd orders will be given accordingly. We will switch him to Novolin NPH at bedtime given as 10 units subQ at bedtime daily to start tonight. We will also start with premixed insulins with Novolin 70/30 given as 24 units before breakfast and 14 units before dinner to start today. Will titrate incremen tally to more optimal metabolic goals of glucose at least ranging from 90 to 130 mg/dL. The aforemen tioned insulin vials are actually affordable and available at [employer] or [employer] at the cost of be tween $30 to $40 per vial, whereas, the insulin analog such as Levemir and NovoLog cost between $300 $400. We will continue the vigorous IV hydration and supplement accordingly with serial chemistries to be obtained. Velia Tabor MD cc: [id number] TT: 07/01/2016 23:50:24 Confirmation # [id number] Dictation # [id number] mn
[2016-07-02] MEDS: (Novolin R) Insulin Human Regular 100 units/ml vial SC SCH ×4 (08:00→21:38)
[2016-07-02] MEDS: (Novolin 70/30) NPH/Regular 70/30 Units/ml 10 ml vial SC SCH ×2 (08:58→18:13)
[2016-07-02 09:20] LABS: CHLORIDE 98 mmol/L (98-107); POTASSIUM 3.9 mmol/L (3.6-5.2); SODIUM 139 mmol/L (132-148)
[2016-07-02 09:22] LABS: ALB/GLOB RATIO 1.4 (1.0-2.1); ALKALINE PHOSPHATASE 146 U/L (38-126); AST/SGOT 66 U/L (17-59); BILIRUBIN,TOTAL 0.8 mg/dL (0.2-1.3); CARBON DIOXIDE 30 mmol/L (22-30); GFR AFRICAN-AMERICAN > 60; TOTAL PROTEIN 6.7 g/dL (6.3-8.3)
[2016-07-02 09:23] LABS: ALT/SGPT 187 U/L (21-72); BLOOD UREA NITROGEN 15 mg/dL (9-20); CALCIUM 9.3 mg/dl (8.6-10.4); GLUCOSE,RANDOM 83 mg/dL (75-110)
[2016-07-02 09:33] LABS: THYROID STIMULATING HORMONE 1.27 mIU/L (0.46-4.68)
[2016-07-02] MEDS: Enoxaparin 40 mg Syringe SC SCH (10:11)
[2016-07-02 11:26] LABS: BASO % 0.7 % (0.0-2.0); EOS # 0.2 K/uL (0.0-0.7); HEMATOCRIT 31.5 % (35.0-51.0); LYMPH # 1.1 K/uL (1.0-4.3); LYMPH % 22.2 % (20.0-40.0); MEAN CELL VOLUME 89.9 fL (80.0-94.0); MEAN CORPUSCULAR HEMOGLOBIN 29.9 pg (27.0-31.0); MEAN CORPUSCULAR HGB CONC 33.2 g/dL (33.0-37.0); MEAN PLATELET VOLUME 7.3 fL (7.2-11.7); MONO # 0.4 K/uL (0.0-0.8); MONO % 7.4 % (0.0-10.0); RED CELL DISTRIBUTION WIDTH 13.2 % (11.5-14.5); WHITE BLOOD COUNT 4.9 K/uL (4.8-10.8)
--- NOTE | 2016-07-02 11:39 | PN ---
DATE: 07/02/2016 metabolic management. His glycemic levels are fluctuating, but improved, and the latest glucose levels have ranged from 71- mg/dL. The latest chemistry showed a BUN of 17, sodium , potassium 3.7, chloride 103, CO2 28, glucose 72 and creatinine 0.9. So at this time, we will continue to modify the basal insulin with Novolin NPH to be lowered to 8 uni ts subQ at bedtime daily to start tonight. We will continue the premixed insulin, 70/30 given as 24 units before breakfast and 14 units before dinner as ordered. We will continue the low-dose co rrection scale using regular insulin as ordered. We have actually given him the conventional insulin s, which are more affordable instead of giving him the really expensive insulin analogs as ment ioned in the previous notes. Velia Tabor MD cc: [id number] TT: 07/02/2016 11:28:06 Confirmation # [id number] Dictation # [id number]
--- NOTE | 2016-07-02 21:29 | CP.PCM.DIS ---
<Faizan Slade - Last Filed: 07/04/16 23:30> Provider - Provider Date of Admission: 06/29/16 10:11 Attending physician: Den Way DO Time Spent in preparation of Discharge (in minutes): 35 Hospital Course - Lab Results Lab Results: Micro Results 06/30/16 15:00 Naris MRSA Culture - Final MRSA NOT DETECTED 06/29/16 15:15 Naris MRSA Culture (Admit) - Final MRSA NOT DETECTED Most Recent Lab Values WBC 4.9 K/uL (4.8-10.8) 07/02/16 11:13 RBC 3.50 Mil/uL (4.40-5.90) L 07/02/16 11:13 Hgb 10.5 g/dL (12.0-18.0) L 07/02/16 11:13 Hct 31.5 % (35.0-51.0) L 07/02/16 11:13 MCV 89.9 fL (80.0-94.0) 07/02/16 11:13 MCH 29.9 pg (27.0-31.0) 07/02/16 11:13 MCHC 33.2 g/dL (33.0-37.0) 07/02/16 11:13 RDW 13.2 % (11.5-14.5) 07/02/16 11:13 Plt Count 290 K/uL (130-400) 07/02/16 11:13 MPV 7.3 fL (7.2-11.7) 07/02/16 11:13 Neut % (Auto) 65.7 % (50.0-75.0) 07/02/16 11:13 Lymph % (Auto) 22.2 % (20.0-40.0) 07/02/16 11:13 Quay % (Auto) 7.4 % (0.0-10.0) 07/02/16 11:13 Eos % (Auto) 4.0 % (0.0-4.0) 07/02/16 11:13 Baso % (Auto) 0.7 % (0.0-2.0) 07/02/16 11:13 Neut # 3.2 K/uL (1.8-7.0) 07/02/16 11:13 Lymph # 1.1 K/uL (1.0-4.3) 07/02/16 11:13 Quay # 0.4 K/uL (0.0-0.8) 07/02/16 11:13 Eos # 0.2 K/uL (0.0-0.7) 07/02/16 11:13 Baso # 0.0 K/uL (0.0-0.2) 07/02/16 11:13 Neutrophils % (Manual) 92 % (50-75) H 06/29/16 11:29 Band Neutrophils % 3 % (0-2) H 06/29/16 06:29 Lymphocytes % (Manual) 2 % (20-40) L 06/29/16 11:29 Monocytes % (Manual) 6 % (0-10) 06/29/16 11:29 Platelet Estimate Normal (NORMAL) 06/29/16 11:29 Large Platelets Present 06/29/16 06:29 Hypochromasia (manual) Slight 06/29/16 11:29 Poikilocytosis (manual Slight 06/29/16 11:29 Anisocytosis (manual) Slight 06/29/16 11:29 Macrocytosis (manual) Slight 06/29/16 06:29 Puncture Site Rb 06/29/16 10:36 pCO2 20 mm/Hg (35-45) L 06/29/16 10:36 pO2 86 mm/Hg (80-100) 06/29/16 10:36 HCO3 9.5 mmol/L (21-28) L* 06/29/16 10:36 ABG pH 7.16 (7.35-7.45) L* 06/29/16 10:36 ABG Total CO2 7.7 mmol/L (22-28) L 06/29/16 10:36 ABG O2 Saturation 99.0 % (95-98) H 06/29/16 10:36 ABG Base Excess -19.8 mmol/L (-2.0-3.0) L 06/29/16 10:36 ABG Hemoglobin 9.3 g/dL (11.7-17.4) L 06/29/16 10:36 ABG Carboxyhemoglobin 1.5 % (0.5-1.5) 06/29/16 10:36 POC ABG HHb (Measured) 1.0 % (0.0-5.0) 06/29/16 10:36 ABG Methemoglobin 1.2 % (0.0-3.0) 06/29/16 10:36 Geoff Test Na 06/29/16 10:36 VBG pH 7.09 (7.32-7.43) L* 06/29/16 09:54 VBG pCO2 21 mmHg (40-60) L 06/29/16 09:54 VBG HCO3 7.4 mmol/L 06/29/16 09:54 VBG Total CO2 7.0 mmol/L (22-28) L 06/29/16 09:54 VBG O2 Sat (Calc) 90.5 % (40-65) H 06/29/16 09:54 VBG Base Excess -21.7 mmol/L (0.0-2.0) L 06/29/16 09:54 VBG Potassium 5.9 mmol/L (3.6-5.2) H 06/29/16 09:54 A-a O2 Difference 39.0 mm/Hg 06/29/16 10:36 Respiratory Index 0.5 06/29/16 10:36 Hgb O2 Saturation 96.3 % (95.0-98.0) 06/29/16 10:36 Sodium 128.0 mmol/l (132-148) L 06/29/16 09:54 Chloride 98.0 mmol/L (98-107) 06/29/16 09:54 Glucose > 750 mg/dl (75-110) H* 06/29/16 09:54 Lactate 3.2 mmol/L (0.7-2.1) H 06/29/16 09:54 FiO2 21.0 % 06/29/16 10:36 Crit Value Called To Dr hamzah guerrier 06/29/16 10:36 Crit Value Called By Khadra crowley tax manager 06/29/16 10:36 Crit Value Read Back Y 06/29/16 10:36 Blood Gas Notified Time 1440 06/29/16 10:36 Sodium 139 mmol/L (132-148) 07/02/16 08:32 Potassium 3.9 mmol/L (3.6-5.2) 07/02/16 08:32 Chloride 98 mmol/L (98-107) 07/02/16 08:32 Carbon Dioxide 30 mmol/L (22-30) 07/02/16 08:32 Anion Gap 15 (10-20) 07/02/16 08:32 BUN 15 mg/dL (9-20) 07/02/16 08:32 Creatinine 0.9 MG/DL (0.8-1.5) 07/02/16 08:32 Est GFR ( Amer) > 60 07/02/16 08:32 Est GFR (Non-Af Amer) > 60 07/02/16 08:32 POC Glucose (mg/dL) 222 mg/dL (65-110) H 07/02/16 16:26 Random Glucose 83 mg/dL (75-110) 07/02/16 08:32 Hemoglobin A1c 11.5 % (4.2-6.5) H 07/02/16 08:32 Calcium 9.3 mg/dl (8.6-10.4) 07/02/16 08:32 Phosphorus 3.4 mg/dL (2.5-4.5) 06/30/16 06:31 Magnesium 2.0 mg/dL (1.6-2.3) 06/30/16 06:31 Total Bilirubin 0.8 mg/dL (0.2-1.3) 07/02/16 08:32 AST 66 U/L (17-59) H D 07/02/16 08:32 ALT 187 U/L (21-72) H 07/02/16 08:32 Alkaline Phosphatase 146 U/L (38-126) H 07/02/16 08:32 Total Protein 6.7 g/dL (6.3-8.3) 07/02/16 08:32 Albumin 3.9 g/dL (3.5-5.0) 07/02/16 08:32 Globulin 2.8 gm/dL (2.2-3.9) 07/02/16 08:32 Albumin/Globulin Ratio 1.4 (1.0-2.1) 07/02/16 08:32 Lipase 50 U/L (23-300) 06/29/16 07:23 TSH 3rd Generation 1.27 mIU/L (0.46-4.68) 07/02/16 08:32 Venous Blood Potassium 5.9 mmol/L (3.6-5.2) H 06/29/16 09:54 Urine Color Straw (YELLOW) 06/29/16 08:04 Urine Clarity Clear (Clear) 06/29/16 08:04 Urine pH 5.0 (5.0-8.0) 06/29/16 08:04 Ur Specific [place] 1.018 (1.003-1.030) 06/29/16 08:04 Urine Protein Negative mg/dL (NEGATIVE) 06/29/16 08:04 Urine Glucose (UA) 3+ mg/dL (Normal) H 06/29/16 08:04 Urine Ketones 2+ mg/dL (NEGATIVE) H 06/29/16 08:04 Urine Blood Negative (NEGATIVE) 06/29/16 08:04 Urine Nitrate Negative (NEGATIVE) 06/29/16 08:04 Urine Bilirubin Negative (NEGATIVE) 06/29/16 08:04 Urine Urobilinogen Normal mg/dL (0.2-1.0) 06/29/16 08:04 Ur Leukocyte Esterase Neg Lottie/uL (Negative) 06/29/16 08:04 Urine WBC (Auto) 1 /hpf (0-5) 06/29/16 08:04 Urine RBC (Auto) < 1 /hpf (0-3) 06/29/16 08:04 - Hospital Course Hospital Course: 50M with PMHx of DM type 1 presented to the ED complaining of nausea, vomiting, and diarrhea x 1 day. Patient has history of uncontrolled IDDM, This is the 3rd admission for DKA within 1 month. On admission his sugars were 1147. He was in Metabolic acidosis on ABG, had a pH of 7.16, with anion gap of 33. He was transferred to the ICU for appropriate care including a insulin drip and fluids until his anion gap closed. He was then started on long acting insulin, ISS, and a diabetic diet. He continued to improve and his sugars were well controlled on day of discharge. [facility] and can get [facility]. This is a brief account of his stay. For more information, please see his chart. - Date & Time of H&P Date of H&P: 07/02/16 Time of H&P: 07:50 Discharge Exam - Head Exam Head Exam: ATRAUMATIC Discharge Plan - Discharge Medications Prescriptions: DULoxetine [Cymbalta] 20 mg PO DAILY 30 Days Lisinopril 20 mg PO DAILY #30 Metoprolol Tartrate 25 mg PO DAILY #30 Pantoprazole Sodium [Protonix] 40 mg PO DAILY #30 - Follow Up Plan Condition: GOOD Disposition: HOME/ ROUTINE Instructions: Metoprolol (By mouth), Lisinopril (By mouth), Pantoprazole (By mouth), Duloxetine (By mouth), Diabetic Ketoacidosis (DC), Diabetic Foot Care ( DC), Meal Planning with Diabetes Exchanges (DC) Additional Instructions: Pt. medically stable for discharge. Please follow up with your primary care or [facility] within 1 week. Please think about [facility] in regards to [facility], since you are a . Referrals: Velia Tabor MD [Medical Doctor] - Fernanda Juarez MD [Staff Provider] - <Pepe Calderon - Last Filed: 08/11/16 14:51> Provider - Provider Date of Admission: 06/29/16 10:11 Attending physician: Den Way DO Hospital Course - Lab Results Lab Results: Micro Results 06/30/16 15:00 Naris MRSA Culture - Final MRSA NOT DETECTED 06/29/16 15:15 Naris MRSA Culture (Admit) - Final MRSA NOT DETECTED Most Recent Lab Values WBC 4.5 K/uL (4.8-10.8) L 07/03/16 07:18 RBC 3.65 Mil/uL (4.40-5.90) L 07/03/16 07:18 Hgb 11.0 g/dL (12.0-18.0) L 07/03/16 07:18 Hct 32.9 % (35.0-51.0) L 07/03/16 07:18 MCV 90.1 fL (80.0-94.0) 07/03/16 07:18 MCH 30.2 pg (27.0-31.0) 07/03/16 07:18 MCHC 33.5 g/dL (33.0-37.0) 07/03/16 07:18 RDW 13.0 % (11.5-14.5) 07/03/16 07:18 Plt Count 303 K/uL (130-400) 07/03/16 07:18 MPV 7.3 fL (7.2-11.7) 07/03/16 07:18 Neut % (Auto) 54.8 % (50.0-75.0) 07/03/16 07:18 Lymph % (Auto) 27.4 % (20.0-40.0) 07/03/16 07:18 Quay % (Auto) 9.9 % (0.0-10.0) 07/03/16 07:18 Eos % (Auto) 6.9 % (0.0-4.0) H 07/03/16 07:18 Baso % (Auto) 1.0 % (0.0-2.0) 07/03/16 07:18 Neut # 2.5 K/uL (1.8-7.0) 07/03/16 07:18 Lymph # 1.2 K/uL (1.0-4.3) 07/03/16 07:18 Quay # 0.4 K/uL (0.0-0.8) 07/03/16 07:18 Eos # 0.3 K/uL (0.0-0.7) 07/03/16 07:18 Baso # 0.0 K/uL (0.0-0.2) 07/03/16 07:18 Neutrophils % (Manual) 92 % (50-75) H 06/29/16 11:29 Band Neutrophils % 3 % (0-2) H 06/29/16 06:29 Lymphocytes % (Manual) 2 % (20-40) L 06/29/16 11:29 Monocytes % (Manual) 6 % (0-10) 06/29/16 11:29 Platelet Estimate Normal (NORMAL) 06/29/16 11:29 Large Platelets Present 06/29/16 06:29 Hypochromasia (manual) Slight 06/29/16 11:29 Poikilocytosis (manual Slight 06/29/16 11:29 Anisocytosis (manual) Slight 06/29/16 11:29 Macrocytosis (manual) Slight 06/29/16 06:29 Puncture Site Rb 06/29/16 10:36 pCO2 20 mm/Hg (35-45) L 06/29/16 10:36 pO2 86 mm/Hg (80-100) 06/29/16 10:36 HCO3 9.5 mmol/L (21-28) L* 06/29/16 10:36 ABG pH 7.16 (7.35-7.45) L* 06/29/16 10:36 ABG Total CO2 7.7 mmol/L (22-28) L 06/29/16 10:36 ABG O2 Saturation 99.0 % (95-98) H 06/29/16 10:36 ABG Base Excess -19.8 mmol/L (-2.0-3.0) L 06/29/16 10:36 ABG Hemoglobin 9.3 g/dL (11.7-17.4) L 06/29/16 10:36 ABG Carboxyhemoglobin 1.5 % (0.5-1.5) 06/29/16 10:36 POC ABG HHb (Measured) 1.0 % (0.0-5.0) 06/29/16 10:36 ABG Methemoglobin 1.2 % (0.0-3.0) 06/29/16 10:36 Geoff Test Na 06/29/16 10:36 VBG pH 7.09 (7.32-7.43) L* 06/29/16 09:54 VBG pCO2 21 mmHg (40-60) L 06/29/16 09:54 VBG HCO3 7.4 mmol/L 06/29/16 09:54 VBG Total CO2 7.0 mmol/L (22-28) L 06/29/16 09:54 VBG O2 Sat (Calc) 90.5 % (40-65) H 06/29/16 09:54 VBG Base Excess -21.7 mmol/L (0.0-2.0) L 06/29/16 09:54 VBG Potassium 5.9 mmol/L (3.6-5.2) H 06/29/16 09:54 A-a O2 Difference 39.0 mm/Hg 06/29/16 10:36 Respiratory Index 0.5 06/29/16 10:36 Hgb O2 Saturation 96.3 % (95.0-98.0) 06/29/16 10:36 Sodium 128.0 mmol/l (132-148) L 06/29/16 09:54 Chloride 98.0 mmol/L (98-107) 06/29/16 09:54 Glucose > 750 mg/dl (75-110) H* 06/29/16 09:54 Lactate 3.2 mmol/L (0.7-2.1) H 06/29/16 09:54 FiO2 21.0 % 06/29/16 10:36 Crit Value Called To Dr hamzah guerrier 06/29/16 10:36 Crit Value Called By Khadra crowley tax manager 06/29/16 10:36 Crit Value Read Back Y 06/29/16 10:36 Blood Gas Notified Time 1440 06/29/16 10:36 Sodium 139 mmol/L (132-148) 07/02/16 08:32 Potassium 3.9 mmol/L (3.6-5.2) 07/02/16 08:32 Chloride 98 mmol/L (98-107) 07/02/16 08:32 Carbon Dioxide 30 mmol/L (22-30) 07/02/16 08:32 Anion Gap 15 (10-20) 07/02/16 08:32 BUN 15 mg/dL (9-20) 07/02/16 08:32 Creatinine 0.9 MG/DL (0.8-1.5) 07/02/16 08:32 Est GFR ( Amer) > 60 07/02/16 08:32 Est GFR (Non-Af Amer) > 60 07/02/16 08:32 POC Glucose (mg/dL) 394 mg/dL (65-110) H 07/03/16 17:03 Random Glucose 83 mg/dL (75-110) 07/02/16 08:32 Hemoglobin A1c 11.5 % (4.2-6.5) H 07/02/16 08:32 Calcium 9.3 mg/dl (8.6-10.4) 07/02/16 08:32 Phosphorus 3.4 mg/dL (2.5-4.5) 06/30/16 06:31 Magnesium 2.0 mg/dL (1.6-2.3) 06/30/16 06:31 Total Bilirubin 0.8 mg/dL (0.2-1.3) 07/02/16 08:32 AST 66 U/L (17-59) H D 07/02/16 08:32 ALT 187 U/L (21-72) H 07/02/16 08:32 Alkaline Phosphatase 146 U/L (38-126) H 07/02/16 08:32 Total Protein 6.7 g/dL (6.3-8.3) 07/02/16 08:32 Albumin 3.9 g/dL (3.5-5.0) 07/02/16 08:32 Globulin 2.8 gm/dL (2.2-3.9) 07/02/16 08:32 Albumin/Globulin Ratio 1.4 (1.0-2.1) 07/02/16 08:32 Lipase 50 U/L (23-300) 06/29/16 07:23 TSH 3rd Generation 1.27 mIU/L (0.46-4.68) 07/02/16 08:32 Venous Blood Potassium 5.9 mmol/L (3.6-5.2) H 06/29/16 09:54 Urine Color Straw (YELLOW) 06/29/16 08:04 Urine Clarity Clear (Clear) 06/29/16 08:04 Urine pH 5.0 (5.0-8.0) 06/29/16 08:04 Ur Specific [place] 1.018 (1.003-1.030) 06/29/16 08:04 Urine Protein Negative mg/dL (NEGATIVE) 06/29/16 08:04 Urine Glucose (UA) 3+ mg/dL (Normal) H 06/29/16 08:04 Urine Ketones 2+ mg/dL (NEGATIVE) H 06/29/16 08:04 Urine Blood Negative (NEGATIVE) 06/29/16 08:04 Urine Nitrate Negative (NEGATIVE) 06/29/16 08:04 Urine Bilirubin Negative (NEGATIVE) 06/29/16 08:04 Urine Urobilinogen Normal mg/dL (0.2-1.0) 06/29/16 08:04 Ur Leukocyte Esterase Neg Lottie/uL (Negative) 06/29/16 08:04 Urine WBC (Auto) 1 /hpf (0-5) 06/29/16 08:04 Urine RBC (Auto) < 1 /hpf (0-3) 06/29/16 08:04 Attending/Attestation - Attestation I have personally seen and examined this patient.: Yes I have fully participated in the care of the patient.: Yes I have reviewed all pertinent clinical information, including history, physical exam and plan: Yes Notes (Text): Patient Seen and examined with the resident. Agree with the resident's evaluation, assessment and plan. DM 2 - Uncontrolled. DKA on admission now resolved Depression, ADHD, Anxiety Hx HTN Hx CVA
[2016-07-02] MEDS ORDERED: (Novolin N) Insulin Human Isophane (NPH) 100 u/ml 10 ml vial SC SCH (22:00)
--- NOTE | 2016-07-02 23:53 | CP.PCM.PN ---
<Faizan Slade - Last Filed: 07/04/16 06:52> Subjective - Date & Time of Evaluation Date of Evaluation: 07/02/16 Time of Evaluation: 07:50 - Subjective Subjective: 50M with PMHx of DM type 1 presented to the ED complaining of nausea, vomiting, and diarrhea x 1 day. Patient has history of uncontrolled IDDM, he is noncompliant with his medications. This is the 3rd admission for DKA within 1 month, last admission being on 06/21/16. Today pt. complains of constipation. He denies headache fever, chillls Objective - Vital Signs/Intake and Output Vital Signs (last 24 hours): Temp Pulse Resp BP Pulse Ox 98.0 F 77 20 127/73 98 07/02/16 16:48 07/02/16 16:48 07/02/16 16:48 07/02/16 16:48 07/02/16 16:48 Intake and Output: 07/02/16 07/03/16 18:59 06:59 Intake Total 400 Balance 400 - Medications Medications: Current Medications Aspirin (Aspirin Chewable) 81 mg PO DAILY [facility] Last Admin: 07/02/16 10:08 Dose: 81 mg Clopidogrel Bisulfate (Plavix) 75 mg PO DAILY [facility] Last Admin: 07/02/16 10:08 Dose: 75 mg Docusate Sodium (Colace) 100 mg PO BID [facility] Last Admin: 07/01/16 20:25 Dose: 100 mg Duloxetine HCl (Cymbalta) 20 mg PO DAILY [facility] Last Admin: 07/02/16 10:10 Dose: 20 mg Enoxaparin Sodium (Lovenox) 40 mg SC DAILY [facility] Last Admin: 07/02/16 10:11 Dose: 40 mg Famotidine (Pepcid) 20 mg PO DAILY [facility] Last Admin: 07/02/16 10:08 Dose: 20 mg Gabapentin (Neurontin) 100 mg PO TID [facility] Last Admin: 07/02/16 18:08 Dose: 100 mg Insulin Human Isoph/Insulin Regular (Novolin 70/30 (70/30 Units/Ml) 10 Ml) 24 units SC ACB [facility] Last Admin: 07/02/16 08:58 Dose: 24 units Insulin Human Isoph/Insulin Regular (Novolin 70/30 (70/30 Units/Ml) 10 Ml) 14 units SC ACD [facility] Last Admin: 07/02/16 18:13 Dose: 14 units Insulin Human NPH (Novolin N) 8 unit SC HS [facility] Last Admin: 07/02/16 21:41 Dose: 8 unit Insulin Human Regular (Novolin R) 0 unit SC ACHS JERROD PRN Reason: Protocol Last Admin: 07/02/16 21:38 Dose: Not Given Lisinopril (Zestril) 2.5 mg PO DAILY [facility] Last Admin: 07/02/16 10:11 Dose: 2.5 mg Ondansetron HCl (Zofran Inj) 4 mg IVP Q6H PRN PRN Reason: Nausea/Vomiting Ondansetron HCl (Zofran Odt) 4 mg PO Q6H PRN PRN Reason: Nausea/Vomiting Last Admin: 07/02/16 10:08 Dose: 4 mg Trazodone HCl (Desyrel) 50 mg PO HS [facility] Last Admin: 07/02/16 21:41 Dose: 50 mg - Labs Labs: 07/02/16 11:13 07/02/16 08:32 - Constitutional Appears: Non-toxic, No Acute Distress - Head Exam Head Exam: ATRAUMATIC - Eye Exam Eye Exam: EOMI - ENT Exam ENT Exam: Mucous Membranes Moist - Respiratory Exam Respiratory Exam: Clear to Ausculation Bilateral, NORMAL BREATHING PATTERN - Cardiovascular Exam Cardiovascular Exam: REGULAR RHYTHM, RRR, +S1, +S2. absent: JVD - GI/Abdominal Exam GI & Abdominal Exam: Soft, Normal Bowel Sounds. absent: Tenderness - Extremities Exam Extremities Exam: Full ROM. absent: Joint Swelling, Pedal Edema - Back Exam Back Exam: NORMAL INSPECTION - Neurological Exam Neurological Exam: Alert, Awake, CN II-XII Intact, Normal Gait, Oriented x3 - Psychiatric Exam Psychiatric exam: Anxious, Normal Affect, Normal Mood - Skin Skin Exam: Dry, Intact, Normal Color, Warm Assessment and Plan - Assessment and Plan (Free Text) Plan: DKA resolved * On admission: Sugars 1147, Metabolic acidosis on ABG, pH of 7.16, with anion gap of 33. * Zofran PRN, NPO * Gabapentin 100mg PO TID * Endocrine Consult : Dr. Tabor * ISS * Insuiln 24u ABC, 14u SC ACD, 10u SC HS * Accuchecks Q1H, BMP Q4H * Diabetic Counseling Depression, ADHD, Anxiety * Psych Consult: Dr. 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, scattered nonspecific white matter changes * Plavix 75mg PO daily CAD * Echo 06/12/16: w/normal LV systolic function, diastolic dysfunction, Trace MR, trace-mild TR, EF 67% * ASA 81mg PO daily Prophylactic Measures * GI PPX: Pepcid 20mg IVP daily * DVT PPX: Lovenox 40mg SC * <Pepe Calderon - Last Filed: 08/11/16 14:50> Objective - Vital Signs/Intake and Output Vital Signs (last 24 hours): Temp Pulse Resp BP Pulse Ox 98.6 F 108 H 20 135/78 95 07/03/16 15:00 07/03/16 15:00 07/03/16 15:00 07/03/16 15:00 07/03/16 15:00 - Labs Labs: 07/03/16 07:18 07/02/16 08:32 Attending/Attestation - Attestation I have personally seen and examined this patient.: Yes I have fully participated in the care of the patient.: Yes I have reviewed all pertinent clinical information, including history, physical exam and plan: Yes Notes (Text): Patient Seen and examined with the resident. Agree with the resident's evaluation, assessment and plan. DM 2 - Uncontrolled. DKA on admission now resolved Depression, ADHD, Anxiety Hx HTN Hx CVA
[2016-07-03 07:42] LABS: EOS # 0.3 K/uL (0.0-0.7); EOS % 6.9 % (0.0-4.0); HEMATOCRIT 32.9 % (35.0-51.0); LYMPH # 1.2 K/uL (1.0-4.3); LYMPH % 27.4 % (20.0-40.0); MEAN CELL VOLUME 90.1 fL (80.0-94.0); MEAN CORPUSCULAR HEMOGLOBIN 30.2 pg (27.0-31.0); MEAN CORPUSCULAR HGB CONC 33.5 g/dL (33.0-37.0); MEAN PLATELET VOLUME 7.3 fL (7.2-11.7); MONO # 0.4 K/uL (0.0-0.8); MONO % 9.9 % (0.0-10.0); WHITE BLOOD COUNT 4.5 K/uL (4.8-10.8)
[2016-07-03] MEDS: (Novolin R) Insulin Human Regular 100 units/ml vial SC SCH ×2 (08:32→12:42)
[2016-07-03] MEDS: (Novolin 70/30) NPH/Regular 70/30 Units/ml 10 ml vial SC SCH (08:46)
[2016-07-03 10:26] VITALS: TEMP 98.6
[2016-07-03] MEDS: Enoxaparin 40 mg Syringe SC SCH (10:31)
--- NOTE | 2016-07-03 13:57 | PN ---
DATE: 07/03/2016 SUBJECTIVE: This is a 50-year-old male with recent uncontrolled type 1 insulin-dependent diabetes, p resenting here with diabetic ketoacidosis and dehydration and has now improved clinically and metabol ically as noted thereof. His oral intake is quite variable as per the nursing staff. His latest glu cose levels have ranged from 143 to ____ and 310 mg/dL. His hemoglobin A1c is 11.5%, which is quite elevated and indicative of suboptimal metabolic control of his diabetic condition. So at this time, we will modify his current insulin regimen and will increase Novolin NPH to 10 units subQ at bedtime daily as ordered. We will also increase the premixed insulin regimen with Novolin ____ given as 28 u nits a.c. breakfast and 18 units a.c. dinner as ordered. We will titrate incrementally as indicated to optimize metabolic control. We will obtain serial chemistries and supplement accordingly as ly jain. We will follow with you. ____ Velia Tabor MD cc: [id number] TT: 07/03/2016 13:56:57 Confirmation # [id number] Dictation # [id number] [email or web address]
[2016-07-03] MEDS ORDERED: (Novolin 70/30) NPH/Regular 70/30 Units/ml 10 ml vial SC SCH (16:30)
[2016-07-03 17:26] VITALS: BP 135/78; PULSE 108; O2SAT 95
[2016-07-03] MEDS ORDERED: (Novolin N) Insulin Human Isophane (NPH) 100 u/ml 10 ml vial SC SCH (22:00)
[2016-07-04] MEDS ORDERED: (Novolin 70/30) NPH/Regular 70/30 Units/ml 10 ml vial SC SCH (07:30)
== END 2016-07-03 18:30 | disposition home or self-care (01) | DRG 294 ==
LOC: C.ER 05:56 → C.9I 10:11 → MERGE 10:11 → C.3T 06-30 12:39
PROVIDERS: ADMIT Hospitalist; ATTEND Hospitalist
DX: E10.10 Type 1 diabetes mellitus with ketoacidosis without coma (principal); I69.354 Hemiplegia and hemiparesis following cerebral infarction affecting left non-dominant side; I10 Essential (primary) hypertension; E86.0 Dehydration; Z79.4 Long term (current) use of insulin; F43.23 Adjustment disorder with mixed anxiety and depressed mood; I25.2 Old myocardial infarction